=== PATIENT | male | born 1960 | race Caucasian/White ===

== ENCOUNTER 2018-06-22 06:01 | Observation (INO) | payer MEDICARE ==
[2018-06-22 06:31] VITALS: BMI 35.3
[2018-06-22] MEDS ORDERED: Propofol 10 mg/ml Inj (20 ML) ONE (07:05)
[2018-06-22] MEDS ORDERED: Midazolam 2 MG/2 ML VIAL ONE (07:06)
[2018-06-22] MEDS ORDERED: ePHEDrine 50 mg/ml Inj ONE (07:06)
[2018-06-22] MEDS ORDERED: Phenylephrine 10 mg/ml Inj ONE ×2 (07:06→11:28)
[2018-06-22] MEDS ORDERED: Sodium Chloride 0.9% 10 ML IV ONE (07:08)
--- NOTE | 2018-06-22 07:18 | CP.SDSHP ---
Same Day Surgery H & P - History Proposed Procedure: Right foot lisfranc ORIF Pre-Op Diagnosis: Right foot 2, 3, 4 metatarsal base fracture and lisfranc ligament rupture - Allergies Allergies: Allergies No Known Allergies Allergy (Verified 06/22/18 06:31) - Physical Exam Vital Signs: Vital Signs 06/22/18 06/22/18 06:37 06:43 Temperature 97.6 F Pulse Rate 90 90 Respiratory 18 Rate Blood Pressure 138/81 O2 Sat by Pulse 97 Oximetry - {Optional Preform as Required} Integument: WNL - Impression Pt. Evaluated Today:Candidate for Anesthesia & Procedure: Yes - Date & Time Date: 06/22/18 Time: 07:18 Short Stay Discharge - Short Stay Discharge Admitting Diagnosis/Reason for Visit: S93.324D Disposition: HOME/ ROUTINE Referrals: FAMILY PROVIDER,NO [Primary Care Provider] -
--- NOTE | 2018-06-22 07:25 | CP.PCM.CON ---
History of Present Illness - History of Present Illness History of Present Illness: THE PATIENT IS A 57 YEAR OLD MALE WHO SLIPPED WALKING IN THE RAIN RECENTLY AND SUSTAINED RIGHT FOOT METATARSAL FRACTURES AND TENDON INJURY. HE IS NOW SCHEDULED FOR PODIATRY SURGERY AND I HAVE BEEN ASKED TO SEE HIM PRE-OP. HIS ONLY MEDICAL PROBLEM IS SCHIZOPHRENIA WHICH IS VERY WELL CONTROLLED WITH COGENTIN. HE DENIES ANY HISTORY OF CHEST PAIN, CAD, HYPERTENSION OR SYNCOPE. Past Patient History - Past Medical History & Family History Past Medical History?: Yes - Past Social History Smoking Status: Current Some Days Smoker - CARDIAC Hx Cardiac Disorders: No - PULMONARY Hx Respiratory Disorders: No - NEUROLOGICAL Hx Neurological Disorder: No - HEENT Hx HEENT Problems: No - RENAL Hx Chronic Kidney Disease: No - ENDOCRINE/METABOLIC Hx Endocrine Disorders: No - HEMATOLOGICAL/ONCOLOGICAL Hx Blood Disorders: No Hx Blood Transfusions: No - INTEGUMENTARY Hx Dermatological Problems: No - MUSCULOSKELETAL/RHEUMATOLOGICAL Hx Musculoskeletal Disorders: No - GASTROINTESTINAL Hx Gastrointestinal Disorders: No - GENITOURINARY/GYNECOLOGICAL Hx Genitourinary Disorders: No - PSYCHIATRIC Hx Emotional Abuse: No Hx Physical Abuse: No - SURGICAL HISTORY Hx Surgeries: Yes Other/Comment: REMOVAL OF BENIGN TUMOR ON THE RIB AREA - ANESTHESIA Hx Anesthesia: Yes Hx Anesthesia Reactions: No Hx Malignant Hyperthermia: No Has any member of the family had a problem w/ anesthesia?: No Meds Allergies/Adverse Reactions: Allergies Allergy/AdvReac Type Severity Reaction Status Date / Time Penicillins Allergy RASH Verified 06/22/18 07:27 Physical Exam - Respiratory Exam Respiratory Exam: Clear to Auscultation Bilateral - Cardiovascular Exam Cardiovascular Exam: REGULAR RHYTHM, +S1, +S2 - Extremities Exam Additional comments: NO SIGNIFICANT LE EDEMA - Additional Findings Additional findings: EKG NSR OTHER PAT LABS REVIEWED Results - Vital Signs Recent Vital Signs: Last Vital Signs Temp 97.6 F 06/22/18 06:43 Pulse 90 06/22/18 06:43 Resp 18 06/22/18 06:43 BP 138/81 06/22/18 06:43 Pulse Ox 97 06/22/18 06:43 Assessment & Plan - Assessment and Plan (Free Text) Assessment: RIGHT FOOT FRACTURES AND LIGAMENT INJURY SCHIZOPHRENIA Plan: THE PATIENT IS CLEARED FOR SURGERY
[2018-06-22] MEDS ORDERED: Bupivacaine 0.5% Inj(30mL) IJ ONE (07:26)
[2018-06-22] MEDS ORDERED: Clindamycin 600mg/50ml D5W 600 MG/50 ML VIAL IVPB ONE (07:26)
[2018-06-22] MEDS ORDERED: Lidocaine 1% Inj (20ml) IJ ONE (07:26)
--- NOTE | 2018-06-22 07:28 | CP.PCM.PN ---
<QuintenCleo - Last Filed: 06/22/18 07:28> Subjective - Date & Time of Evaluation Date of Evaluation: 06/22/18 Time of Evaluation: 07:28 Objective - Vital Signs/Intake and Output Vital Signs (last 24 hours): Temp Pulse Resp BP Pulse Ox 97.6 F 90 18 138/81 97 06/22/18 06:43 06/22/18 06:43 06/22/18 06:43 06/22/18 06:43 06/22/18 06:43 - Medications Medications: Current Medications Bupivacaine HCl (Marcaine 0.5%) 10 ml IJ ONCE ONE Stop: 06/22/18 07:27 Clindamycin Phosphate 600 mg/ (Sodium Chloride) 54 mls @ 54 mls/hr IVPB ONCE ONE; Protocol Stop: 06/22/18 08:25 <Quintin Kenyon - Last Filed: 06/22/18 08:21> Subjective - Subjective Subjective: 57M with pmhx of schizophrenia seen and evaluated in [facility]. Patient sustained a trip and fall 2 weeks ago and after trying to get up he states he couldn't put any weight on his right foot. States that he felt like he broke his foot instantly. States that he does not feel pain in his toes or in his ankle but only in the middle of his foot both on the top and bottom. States that ice and elevation helps with the pain and swelling as well as motrin. States that any pressure on the foot elicits pain. Denies N/V/F/C/SOB/CP and has no other acute complaints at this time. PMHx: schizophrenia controlled with cogentin PSHx: 35 years ago angioplasty SH: 1 ppd smoker, denies alcohol use All: penicillin Objective - Vital Signs/Intake and Output Vital Signs (last 24 hours): Temp Pulse Resp BP Pulse Ox 97.6 F 90 18 138/81 97 06/22/18 06:43 06/22/18 06:43 06/22/18 06:43 06/22/18 06:43 06/22/18 06:43 - Medications Medications: Current Medications Clindamycin Phosphate (Cleocin) 600 mg in 50 mls @ 50 mls/hr IVPB ONCE ONE; Protocol Stop: 06/22/18 08:25 Sodium Chloride (Sodium Chloride 0.9%) 1,000 mls @ 0 mls/hr IV .Q0M [facility] Stop: 06/23/18 07:26 - Constitutional Appears: Well, Non-toxic, No Acute Distress - Head Exam Head Exam: ATRAUMATIC, NORMOCEPHALIC - Extremities Exam Additional comments: RLE focused Vasc: DP and PT pulses palpable; cap refill <3 seconds to all digits; temp gradient warm to warm from proximal to distal; nonpitting edema noted at the midfoot Derm: no open lesions or wounds; severe edema noted at the midfoot with mild ecchymosis and erythema associated; no streaking or cellulitis; skin temp and turgor within normal limits Ortho: pain on palpation at the midfoot circumferentially; no other gross p athology noted Neuro: gross and protective sensation intact - Neurological Exam Neurological Exam: Alert, Awake, Oriented x3 - Psychiatric Exam Psychiatric exam: Normal Affect, Normal Mood Assessment and Plan - Assessment and Plan (Free Text) Assessment: 57M with pmhx of schizophrenia controlled with cogentin with right lisfranc rupture and fracture of metatarsal bases 2-4 Plan: Pt was seen and examined in [facility] Pt NPO status was confirmed All pre-op testing and clearance in chart Pt has exhausted all conservative treatment at this time and is opting for surgical intervention Pt was explained procedure and post-operative course All pt's questions were answered to satisfaction No guarantees were made Pt understands all risks, benefits and complications of procedure Pt will follow-up with Dr. Salvador within 1 week of surgery
[2018-06-22] MEDS ORDERED: Sodium Chloride 0.9% 1,000 ML IV SCH (07:30)
[2018-06-22] MEDS ORDERED: Lactated Ringer's 1,000 ML IV ONE ×3 (07:45→15:45)
[2018-06-22] MEDS ORDERED: Ropivacaine 0.5% 30ML IV ONE (07:46)
[2018-06-22] MEDS ORDERED: Bupivacaine 0.5% Inj(30mL) ONE (07:50)
[2018-06-22] MEDS ORDERED: Lidocaine 1% Inj (20ml) ONE (07:50)
[2018-06-22] MEDS ORDERED: Mineral Oil Light Sterile 25 ml ONE (08:27)
[2018-06-22] MEDS ORDERED: Rocuronium 10 mg/ml (5 ml) ONE (08:36)
[2018-06-22] MEDS ORDERED: Esmolol 100 mg/10ml Inj IV ONE (10:36)
[2018-06-22] MEDS ORDERED: Povidone Iodine Topical 10% Sol ONE (12:35)
--- NOTE | 2018-06-22 12:57 | PCM.SURG1 ---
Surgeon's Initial Post Op Note - Surgeon's Notes Surgeon: Dr. Dav Salvador DPM Uke Operator: Dr. Didi Stanton PGY-3; Dr. Laz Castillo PGY-2; Dr. Ruiz PGY-2 Type of Anesthesia: General Endo, Block Regional Anesthesia Administered By: Dr. Jose Francisco CARD Pre-Operative Diagnosis: Right foot comminuted fracture of the 1st, 2nd, 3rd, 4th metatarsal base and cuboid Operative Findings: See dictation. M: 9 hole locking plate, 2.4 x 13 mm (x2) locking, 2.4 x 11 mm (x4) locking, 25 guage cerclage wire, 3.5 mm x 20 mm, 36mm, 38mm cannulated screw, 2-0, 3-0, 4-0 vicryl, 4-0 nylone. I: 10 cc of 0.5% marcaine plain Post-Operative Diagnosis: Same Operation Performed: Right foot open reduction and internal fixation Specimen/Specimens Removed: none Estimated Blood Loss: EBL {In ML}: 250 Blood Products Given: N/A Drains Used: No Drains Post-Op Condition: Good Date of Surgery/Procedure: 06/22/18 Time of Surgery/Procedure: 12:57
[2018-06-22] MEDS ORDERED: Oxycodone/Acetaminophen 5/325 mg Tab PO PRN (12:59)
--- NOTE | 2018-06-22 13:16 | PCM.ANESB2 ---
Popliteal Nerve Block - Popliteal Nerve Block Date of Procedure: 06/22/18 Procedure Performed: Popliteal Nerve Block Right - Procedure Popliteal Nerve Block: This procedure was explained to the patient that it is for post-operative pain management. Consent was obtained after a thorough discussion with the patient regarding the benefits and possible complications of local anesthetic block of the sciatic nerve at the popliteal level. The patient was brought to the operating room and standard monitors are applied. Time-out was held with the circulating nurse to confirm the correct surgery and the appropriate block. After applying oxygen by nasal cannula and administering IV Sedation, patient's operative leg was gently raised and supported and the groove in between the biceps femoris and vastus lateralis muscles was carefully palpated. The skin rocio roximately 8cm above the popliteal crease was then marked. The ultrasound transducer was then applied to the posterior thigh approximately 8cm above the popliteal crease in the transverse plane and the sciatic nerve before its division was visualized lateral to the popliteal artery and in between the bicep femoris and semimembranosus/semitendinosus muscles. After identification, the lateral portion of the thigh was prepped with Betadine solution three times and Lidocaine 1% was injected subcutaneously for topical anesthesia. At this point, a # 21 gauge Stimuplex insulated 4 inch needle was inserted into pre-marked area and advanced in a perpendicular direction. The needle was inserted above the ultrasound transducer in-plane towards the sciatic nerve in a [id number] direction. Needle advancement was performed carefully under direct ultrasound visualization. Nerve stimulator was used and dorsiflexion of the __right___ foot was elicited at a current of __0.4___ MA. After repeated negative aspiration, _5____cc of __ropivacaine 0.5___ % was injected and this was flowed with ___15___ cc of ___Ropivacaine 0.5___% . Under ultrasound guidance the local anesthetics were observed surrounding sciatic nerve . The needle was removed intact and sterile dressing was applied. The patient tolerated the popliteal nerve block well with stable vital signs and was subsequently prepared for the surgery.
--- NOTE | 2018-06-22 15:11 | RAD ---
Date of service: 06/22/2018 PROCEDURE: Right Foot Radiographs. HISTORY: s/p right foot surgery COMPARISON: None. FINDINGS: BONES: Satisfactory position of orthopedic hardware 1st and 2nd metacarpals and adjacent carpal bones. Solitary partially fenestrated screw in the 3rd cuneiform. JOINTS: Normal. SOFT TISSUES: Normal. OTHER FINDINGS: None. IMPRESSION: Satisfactory postoperative status. No evidence of orthopedic hardware failure.
--- NOTE | 2018-06-22 16:47 | CP.PCM.HP ---
<Maki Valenzuela - Last Filed: 06/22/18 16:34> History of Present Illness - History of Present Illness History of Present Illness: 57 y/o male patient with PMHx of Schizophrenia was seen and evaluated on the floor S/P Right foot ORIF fracture. Patient sustained a trip and fall 2 weeks ago and after trying to get up he states he couldn't put any weight on his right foot. Patient denies any pain at this time. Patient states that ice and elevation are helping with the pain and swelling. Patient currently denies fever, nausea, vomiting, shortness of breath, chest pain, urinary complaints or abdominal pain. Patient dressing clean/dry intact PMHx: Schizophrenia controlled with Cogentin PSHx: 35 years ago angioplasty SH: 1 ppd smoker, denies alcohol use All: penicillin PMD: none Anodic Treater: Dr. Salvador Present on Admission - Present on Admission Any Indicators Present on Admission: No Review of Systems - Constitutional Constitutional: absent: Chills, Fever, Weakness - EENT Eyes: absent: Blurred Vision, Change in Vision - Cardiovascular Cardiovascular: absent: Chest Pain, Chest Pain with Activity, Dyspnea on Exertion - Respiratory Respiratory: absent: Cough, Dyspnea on Exertion - Gastrointestinal Gastrointestinal: absent: Abdominal Pain, Diarrhea, Nausea, Vomiting - Neurological Neurological: absent: Numbness, Tingling Past Patient History - Past Medical History & Family History Past Medical History?: Yes - Past Social History Smoking Status: Current Some Days Smoker - CARDIAC Hx Cardiac Disorders: No - PULMONARY Hx Respiratory Disorders: No - NEUROLOGICAL Hx Neurological Disorder: No - HEENT Hx HEENT Problems: No - RENAL Hx Chronic Kidney Disease: No - ENDOCRINE/METABOLIC Hx Endocrine Disorders: No - HEMATOLOGICAL/ONCOLOGICAL Hx Blood Disorders: No Hx Blood Transfusions: No - INTEGUMENTARY Hx Dermatological Problems: No - MUSCULOSKELETAL/RHEUMATOLOGICAL Hx Musculoskeletal Disorders: No - GASTROINTESTINAL Hx Gastrointestinal Disorders: No - GENITOURINARY/GYNECOLOGICAL Hx Genitourinary Disorders: No - PSYCHIATRIC Hx Emotional Abuse: No Hx Physical Abuse: No - SURGICAL HISTORY Hx Surgeries: Yes Other/Comment: REMOVAL OF BENIGN TUMOR ON THE RIB AREA - ANESTHESIA Hx Anesthesia: Yes Hx Anesthesia Reactions: No Hx Malignant Hyperthermia: No Has any member of the family had a problem w/ anesthesia?: No Meds Allergies/Adverse Reactions: Allergies Allergy/AdvReac Type Severity Reaction Status Date / Time Penicillins Allergy RASH Verified 06/22/18 07:27 Physical Exam - Constitutional Appears: Well, Non-toxic, No Acute Distress - Head Exam Head Exam: ATRAUMATIC, NORMOCEPHALIC - Eye Exam Eye Exam: Normal appearance, PERRL Pupil Exam: NORMAL ACCOMODATION, PERRL - ENT Exam ENT Exam: Mucous Membranes Moist, Normal Exam - Respiratory Exam Respiratory Exam: Clear to Auscultation Bilateral, NORMAL BREATHING PATTERN. absent: Rales, Wheezes, Stridor - Cardiovascular Exam Cardiovascular Exam: REGULAR RHYTHM, +S1, +S2 - GI/Abdominal Exam GI & Abdominal Exam: Normal Bowel Sounds, Soft. absent: Distended, Firm, Guarding - Extremities Exam Additional comments: Cast to the RLE - Neurological Exam Neurological exam: Alert, Oriented x3 - Psychiatric Exam Psychiatric exam: Normal Affect, Normal Mood Results - Vital Signs Recent Vital Signs: Last Vital Signs Temp 98.7 F 06/22/18 16:00 Pulse 72 06/22/18 16:00 Resp 18 06/22/18 16:00 BP 110/74 06/22/18 16:00 Pulse Ox 99 06/22/18 16:00 Assessment & Plan - Assessment and Plan (Free Text) Assessment: Pt is a 57 y/o male with PMH of schizophrenia S/P Right foot ORIF due to fracture. Post op day #0 Plan: Right foot ORIF Post Op day#0 Pt Awake, and alert Pt recovering well from surgery Vitals BP is 101/65, other WNL f/u CBC/BMP f/u OT/PT Tylenol PRN for pain Oxycodone PRN for pain Pain management consult- Dr. Sebastian, recommendations appreciated Spirometry Schizophrenia - continue home medications - Halodol 10 mg PO HS - Benztropine 2 mg PO HS DVT Prophylaxis Lovenox 40 mg SC DAILY Diet Heart Healthy Diet - Date & Time Date: 06/22/18 Time: 16:58 <Raji Alexander D - Last Filed: 06/23/18 09:46> Results - Vital Signs Recent Vital Signs: Last Vital Signs Temp 97.4 F L 06/23/18 08:12 Pulse 77 06/23/18 08:12 Resp 20 06/23/18 08:12 BP 111/74 06/23/18 08:12 Pulse Ox 93 L 06/23/18 08:12 - Labs Result Diagrams: 06/23/18 06:05 06/23/18 06:05 Labs: Laboratory Results - last 24 hr 06/23/18 06/23/18 06:05 06:05 WBC 8.4 RBC 3.95 L Hgb 12.4 D Hct 36.6 MCV 92.6 MCH 31.5 H MCHC 34.0 RDW 13.3 Plt Count 228 Sodium 138 Potassium 3.8 Chloride 106 Carbon Dioxide 27 Anion Gap 9 L BUN 13 Creatinine 0.9 Est GFR ( Amer) > 60 Est GFR (Non-Af Amer) > 60 Random Glucose 101 Calcium 8.6 Attending/Attestation - Attestation I have personally seen and examined this patient.: Yes I have fully participated in the care of the patient.: Yes I have reviewed all pertinent clinical information: Yes Notes (Text): 06/23/18 09:46 Patient seen and examined with resident. Case discussed and agreed with assessment and plan of management.
[2018-06-22] MEDS ORDERED: Haloperidol Lactate 2 mg/ml Liquid PO SCH (18:30)
[2018-06-22] MEDS: Clindamycin 600mg/50ml D5W 600 MG/50 ML VIAL IVPB SCH (19:11)
[2018-06-22] MEDS ORDERED: Influenza Vaccine (5 YR UP)/PF 60 MCG/0.5 ML SYR IM ONE (20:00)
[2018-06-22] MEDS ORDERED: Pneumococcal 23-Valent Vaccine IM ONE (20:00)
[2018-06-22] MEDS: Haloperidol Lactate 2 mg/ml Liquid PO SCH (21:03)
--- NOTE | 2018-06-22 22:09 | CP.PCM.PN ---
Subjective - Date & Time of Evaluation Date of Evaluation: 06/22/18 Time of Evaluation: 22:22 - Subjective Subjective: 57 yo smoker with hx of schizophrenia admitted for fx R foot Objective - Vital Signs/Intake and Output Vital Signs (last 24 hours): Temp Pulse Resp BP Pulse Ox 98 F 86 20 123/86 97 06/22/18 16:52 06/22/18 16:52 06/22/18 16:52 06/22/18 16:52 06/22/18 16:52 Intake and Output: 06/22/18 06/23/18 18:59 06:59 Intake Total 2250 Balance 2250 - Medications Medications: Current Medications Acetaminophen (Tylenol 325mg Tab) 650 mg PO Q6 PRN PRN Reason: Pain, Mild (1-3) Benztropine Mesylate (Cogentin) 2 mg PO HS [facility] Last Admin: 06/22/18 21:03 Dose: 2 mg Enoxaparin Sodium (Lovenox) 40 mg SC DAILY [facility]; Protocol Haloperidol Lactate (Haldol) 5 mg PO BID@0900,2100 [facility] Last Admin: 06/22/18 21:03 Dose: 5 mg Sodium Chloride (Sodium Chloride 0.9%) 1,000 mls @ 0 mls/hr IV .Q0M [facility] Stop: 06/23/18 07:26 Clindamycin Phosphate (Cleocin) 600 mg in 50 mls @ 50 mls/hr IVPB Q8 [facility]; Protocol Last Admin: 06/22/18 19:11 Dose: 50 mls/hr Oxycodone/Acetaminophen (Percocet 5/325 Mg Tab) 1 tab PO Q4 PRN PRN Reason: Pain, moderate (4-7) Stop: 06/25/18 13:00 Oxycodone/Acetaminophen (Percocet 5/325 Mg Tab) 2 tab PO Q4 PRN PRN Reason: Pain, severe (8-10) Stop: 06/25/18 13:00 - Respiratory Exam Respiratory Exam: NORMAL BREATHING PATTERN - Cardiovascular Exam Cardiovascular Exam: REGULAR RHYTHM - GI/Abdominal Exam GI & Abdominal Exam: Normal Bowel Sounds Assessment and Plan - Assessment and Plan (Free Text) Assessment: Fx R foot S/P ORIF Local pop;iteal nerve block Lovenox 40 mg Schizophrenia Cont Haldol and cogentin Smoker ?? CAD ?? Angioplasty
[2018-06-23] MEDS: Clindamycin 600mg/50ml D5W 600 MG/50 ML VIAL IVPB SCH ×3 (00:29→17:24)
[2018-06-23] MEDS: Oxycodone/Acetaminophen 5/325 mg Tab PO PRN ×3 (01:28→13:34)
[2018-06-23 04:12] VITALS: RESP 20
[2018-06-23 06:33] LABS: HEMOGLOBIN 12.4 g/dL (12.0-18.0); MEAN CELL VOLUME 92.6 fl (80.0-94.0); MEAN CORPUSCULAR HEMOGLOBIN 31.5 pg (27.0-31.0); RBC 3.95 Mil/uL (4.40-5.90); RED CELL DISTRIBUTION WIDTH 13.3 % (11.5-14.5); WHITE BLOOD COUNT 8.4 K/uL (4.8-10.8)
[2018-06-23 06:45] LABS: BLOOD UREA NITROGEN 13 mg/dl (9-20); CALCIUM 8.6 mg/dL (8.4-10.2); GFR NON-AFRICAN AMERICAN > 60
[2018-06-23] MEDS ORDERED: Enoxaparin 40 mg Syringe SC SCH (09:00)
[2018-06-23] MEDS: Haloperidol Lactate 2 mg/ml Liquid PO SCH (10:05)
--- NOTE | 2018-06-23 10:09 | CP.PCM.CON ---
History of Present Illness - History of Present Illness History of Present Illness: 57 yo man s/p right foot ORIF for fracture, POD #1. Patient states that popliteal block wore off about 2am, and the pain has been mostly in the top of the foot. He's opioid naive and states that he doesn't want more than the current regimen due to fear of addiction. He states that Percocet is helping moderately, without side effects. Past Patient History - Past Medical History & Family History Past Medical History?: Yes - Past Social History Smoking Status: Current Some Days Smoker - CARDIAC Hx Cardiac Disorders: No - PULMONARY Hx Respiratory Disorders: No - NEUROLOGICAL Hx Neurological Disorder: No - HEENT Hx HEENT Problems: No - RENAL Hx Chronic Kidney Disease: No - ENDOCRINE/METABOLIC Hx Endocrine Disorders: No - HEMATOLOGICAL/ONCOLOGICAL Hx Blood Disorders: No Hx Blood Transfusions: No - INTEGUMENTARY Hx Dermatological Problems: No - MUSCULOSKELETAL/RHEUMATOLOGICAL Hx Musculoskeletal Disorders: No - GASTROINTESTINAL Hx Gastrointestinal Disorders: No - GENITOURINARY/GYNECOLOGICAL Hx Genitourinary Disorders: No - PSYCHIATRIC Hx Emotional Abuse: No Hx Physical Abuse: No - SURGICAL HISTORY Hx Surgeries: Yes Other/Comment: REMOVAL OF BENIGN TUMOR ON THE RIB AREA - ANESTHESIA Hx Anesthesia: Yes Hx Anesthesia Reactions: No Hx Malignant Hyperthermia: No Has any member of the family had a problem w/ anesthesia?: No Meds Allergies/Adverse Reactions: Allergies Allergy/AdvReac Type Severity Reaction Status Date / Time Penicillins Allergy RASH Verified 06/22/18 07:27 - Medications Medications: Current Medications Acetaminophen (Tylenol 325mg Tab) 650 mg PO Q6 PRN PRN Reason: Pain, Mild (1-3) Benztropine Mesylate (Cogentin) 2 mg PO HS [facility] Last Admin: 06/22/18 21:03 Dose: 2 mg Enoxaparin Sodium (Lovenox) 40 mg SC DAILY [facility]; Protocol Haloperidol Lactate (Haldol) 5 mg PO BID@0900,2100 [facility] Last Admin: 06/22/18 21:03 Dose: 5 mg Clindamycin Phosphate (Cleocin) 600 mg in 50 mls @ 50 mls/hr IVPB Q8 [facility]; Protocol Last Admin: 06/23/18 00:29 Dose: 50 mls/hr Oxycodone/Acetaminophen (Percocet 5/325 Mg Tab) 1 tab PO Q4 PRN PRN Reason: Pain, moderate (4-7) Stop: 06/25/18 13:00 Last Admin: 06/23/18 06:33 Dose: 1 tab Oxycodone/Acetaminophen (Percocet 5/325 Mg Tab) 2 tab PO Q4 PRN PRN Reason: Pain, severe (8-10) Stop: 06/25/18 13:00 Physical Exam - Extremities Exam Additional comments: Right lower leg in cast. Results - Vital Signs Recent Vital Signs: Last Vital Signs Temp 97.4 F L 06/23/18 08:12 Pulse 77 06/23/18 08:12 Resp 20 06/23/18 08:12 BP 111/74 06/23/18 08:12 Pulse Ox 93 L 06/23/18 08:12 - Labs Result Diagrams: 06/23/18 06:05 06/23/18 06:05 Labs: Laboratory Results - last 24 hr 06/23/18 06/23/18 06:05 06:05 WBC 8.4 RBC 3.95 L Hgb 12.4 D Hct 36.6 MCV 92.6 MCH 31.5 H MCHC 34.0 RDW 13.3 Plt Count 228 Sodium 138 Potassium 3.8 Chloride 106 Carbon Dioxide 27 Anion Gap 9 L BUN 13 Creatinine 0.9 Est GFR ( Amer) > 60 Est GFR (Non-Af Amer) > 60 Random Glucose 101 Calcium 8.6 Assessment & Plan - Assessment and Plan (Free Text) Assessment: 57 yo man s/p right foot ORIF. Moderately comfortable on Percocet. - continue Percocet, 1 tab q4h PRN, or 2 tabs q6h PRN - would add Neurontin 300mg q8h - please re-consult if necessary
--- NOTE | 2018-06-23 11:35 | PCM.OP ---
Operative Report - Operative Report Date of Surgery/Procedure: 06/22/18 Time of Surgery/Procedure: 08:00 Surgeon: Dr. Salvador [facility] Technician: Dr. Dax Stanton, Dr. Castillo, Dr. Love Anesthesia/Sedation: General LMA and Regional Popliteal and Saphenous Block Pre-Operative Diagnosis: RIGHT foot comminuted fracture of Tarso-metatarsal joint involving fractures to 1st, 2nd, 3rd, 4th metatarsal bases and Cuboid Post-Operative Diagnosis: same Indication for Surgery: Indications: The patient is a 57 year-old male with the above diagnoses. The patient has exhausted conservative treatment and now requires surgical intervention. The patient signed the consent after careful explanation of risks, benefits, complication and alternatives for surgical procedure. No guarantees were given nor implied. 900 mg of Clindamycin IV were given to the pt hour prior to the procedure. NPO status was confirmed prior to taking patient to the OR. Operative Findings: Preparation: The patient received regional popliteal block to Right lower extremity by the anesthesiologist prior to taking patient o OR. The patient was brought to the operating room and placed on the operating room table in supine position. A well-padded pneumatic thigh tourniquet was placed to the patient's RIGHT thigh. Once general anesthesia was achieved. The RIGHT lower extremity was then prepped and draped in usual sterile manner. Esmarch was utilized to exsanguinate the patient's RIGHT lower extremity. Pneumatic thigh tourniquet was then inflated to 350 mmHg and procedure began. Procedure/Operation Description: Name of Procedure: 1) RIGHT foot 2nd Metatarso-cuneiform Joint Fusion using internal fixation with application of autologous bone graft 2) RIGHT foot 3rd Metatarso-cuneiform Joint Fusion using internal fixation 3) RIGHT foot Lis Franc joint Open Reduction and Internal Fixation 4) RIGHT foot Excision of osseous fragment from Cuboid PROCEDURE #1: RIGHT foot 2nd Metatarso-cuneiform Joint Fusion using internal fixation with application of autologous bone graft Xray of contralateral foot was taken prior to surgery to compare anatomical landmarks. Attention was directed to the dorsal aspect of RIGHT foot 2nd metatarsal. Utilizing #15 blade, approximately 6 cm curvilinear longitudinal incision was made overlying the 2nd metatarsal involving the MTCJ. The incision was deepened through the subcutaneous tissues using sharp and blunt dissection. Care was taken to identify and retract all vital neurovascular structures. All bleeders were cauterized and ligated as necessary. Next Utilizing #15 blade, linear longitudinal incision was made along the shaft of 2nd metatarsal extending proximally up to 2nd MTCJ joint. A comminuted fracture was noted at the proximal aspect of 2nd metatarsal base. Upon careful examination, it was noted that the lateral aspect of 2nd metatarsal base was fractured into multiple parts with one larger piece that can be fixated. Next, utilizing a small bone curette, the articular surface of the 2nd metatarsal base and middle cuneiform was gently denuded until healthy cancellous surface was noted. Utilizing a small bone clamp, the 2nd metatarsal shaft was grabbed and pulled out to original length. Next, a 9 hole LC-DCP plate from modular set was applied to dorsal aspect of 2nd MTCJ. The alignment of the plate along the shaft of 2nd metatarsal was confirmed with intra-operative Xray. Next, following standard AO principles and technique, two 2.4 x 13 mm locking screws were inserted into most proximal holes of the plate on top of the middle cuneiform. Next, two 2.4 x 13 mm and one 2.4 x 11mm screws were inserted into 2nd metatarsal shaft through the most distal four holes. Proximal three holes of the plate were left for accommodation of Lis Franc screw. Next, the lateral bone fragment of 2nd metatarsal base was held in position with a bone clamp. While in reduced position, 0.062 inch K-beverly was used to drill a small hole through the fragment piece and 2nd metatarsal from lateral to medial direction. Next, a 25-gauge Stainless steel monofilament was passed through the hole and was tightened at the dorsal aspect to fixate the fracture fragment. Excellent compression and alignment of the 2nd metatarsal base fracture was visually confirmed. The surgical site was irrigated with copious amount of normal sterile saline. Excellent reduction and alignment was noted under direct visualization and intra-operative Xray. Autologous bone graft harvested from PROCEDURE#4 was applied to this joint. PROCEDURE #2: RIGHT foot 3rd Metatarso-cuneiform Joint Fusion using internal fixation Attention was directed to the dorsal aspect of RIGHT foot 3rd metatarsal. The original incision made for procedure #1 was deepened through the subcutaneous ti ssues using sharp and blunt dissection. Care was taken to identify and retract all vital neurovascular structures. All bleeders were cauterized and ligated as necessary. Next Utilizing #15 blade, linear longitudinal incision was made along the shaft of 3rd metatarsal extending proximally up to 3rd MTCJ joint. A comminuted fracture was noted at the proximal aspect of 3rd metatarsal base. Upon careful examination, it was noted that the base of 3rd metatarsal was completely dislocated off of lateral cuneiform laterally. Next, utilizing a sagittal saw the articular surface of 3rd metatarsal base and lateral cuneiform was resected off. The healthy cancellous surface was noted from both sides. Utilizing a small bone clamp, the 2nd metatarsal shaft was grabbed and pulled out to original length and was put back into original position and in alignment with the lateral cuneiform. Next, following standard AO principles and technique, one 3.5 x 38 mm partially threaded cancellous screw was inserted into across the MTCJ from distal dorsal to proximal plantar direction. The surgical site was irrigated with copious amount of normal sterile saline. Excellent reduction and alignment was noted under direct visualization and intra-operative Xray. Autologous bone graft harvested from PROCEDURE#4 was applied to this joint. PROCEDURE #3: RIGHT foot Lis Franc joint Open Reduction and Internal Fixation Next, attention was directed to the medial aspect of RIGHT foot 1st MTCJ. Utilizing intraoperative fluoroscopy, position and orientation of inter- cuneiform screw was determined. Next, a small 1cm linear incision was made to medial aspect of medial cuneiform. Next, following standard AO principles and technique, one 3.5 x 42 mm partially threaded cancellous screw was inserted into across the cuneiforms from medial to lateral direction across medial, middle and lateral cuneiforms. The surgical site was irrigated with copious amount of normal sterile saline. Excellent reduction and alignment was noted under direct visualization and intra-operative Xray. Next, attention was directed to the dorsal aspect of RIGHT foot 1st MTCJ. Utilizing intraoperative fluoroscopy, position and orientation of 1st MTCJ screw was determined. Next, a small 1cm linear incision was made to dorsal aspect of 1st metatarsal. Next, following standard AO principles and technique, one 3.5 x 40 mm partially threaded cancellous screw was inserted into across the 1st MTCJ from distal dorsal to proximal plantar direction. The surgical site was irrigated with copious amount of normal sterile saline. Excellent reduction and alignment of 1st MTCJ was noted under direct visualization and intra-operative Xray. Next, attention was directed to the medial aspect of RIGHT foot Lis-Franc joint. Utilizing intraoperative fluoroscopy, and through the original incision made in PROCEDURE#1, position and orientation of Lis-Franc screw was determined. Next, a small 1cm linear incision was made to medial aspect of medial cuneiform. Next, following standard AO principles and technique, one 3.5 x 36 mm partially threaded cancellous screw was inserted into across the Lis-Franc joint from medial proximal to lateral distal direction across the medial cuneiform and 2nd metatarsal base. The surgical site was irrigated with copious amount of normal sterile saline. Excellent reduction and alignment was noted under direct visualization through incision and intra-operative Xray. All screw placements in procedure #3 were performed under intra-operative Fluoroscopy. PROCEDURE #4: RIGHT foot Excision of osseous fragment from Cuboid Attention was directed to the dorso-lateral aspect of RIGHT foot Cuboid. Utilizing #15 blade, approximately 5 cm curvilinear longitudinal incision was made overlying the Cuboid bone. The incision was deepened through the subcutaneous tissues using sharp and blunt dissection. Care was taken to identify and retract all vital neurovascular structures. All bleeders were cauterized and ligated as necessary. A piece of fracture was noted at the dorsal aspect of Cuboid measuring approximately 2cm x 1.5cm. Upon careful examination, it was noted that the osseous fragment is extra-articular and does not involve and tendon course. Next, utilizing a rongeur, the osseous fragment was excised from the Cuboid bone and was passed from the operative field. This osseous bone fragment was then crushed with a rongeur to be used as autologous bone graft for 2nd and 3rd metatarsal base. For all incisions made to right foot, Capsular and periosteal structures were reapproximated with #2-0 , 3-0 vicryl. Subcutansous tissue was reapproximated with #4-0 vicryl. Skin was reapproximated with #4-0 Nylon in horizontal mattress suture technique. . RIGHT foot was dressed with betadine soaked adaptic, 4x 4 gauze, latrice and below knee cast. The attending was present during the case. Estimated Blood Loss: 250mL Complications: none Discharge & Condition: Postoperative Condition: The patient tolerated the anesthesia and procedure well and was escorted to the recovery room with vital signs stable and neurovascular status intact to the RIGHT lower extremity. This patient will be non-weight bearing to RIGHT foot and follow up with Dr. Salvador.
--- NOTE | 2018-06-23 11:55 | CP.PCM.PN ---
Subjective - Date & Time of Evaluation Date of Evaluation: 06/23/18 Time of Evaluation: 09:45 - Subjective Subjective: NO CHEST PAIN OR SOB PAIN AT RIGHT FOOT SURGICAL SITE Objective - Vital Signs/Intake and Output Vital Signs (last 24 hours): Temp Pulse Resp BP Pulse Ox 97.4 F L 77 20 111/74 93 L 06/23/18 08:12 06/23/18 08:12 06/23/18 08:12 06/23/18 08:12 06/23/18 08:12 - Medications Medications: Current Medications Acetaminophen (Tylenol 325mg Tab) 650 mg PO Q6 PRN PRN Reason: Pain, Mild (1-3) Benztropine Mesylate (Cogentin) 2 mg PO HS [facility] Last Admin: 06/22/18 21:03 Dose: 2 mg Enoxaparin Sodium (Lovenox) 40 mg SC DAILY [facility]; Protocol Last Admin: 06/23/18 10:04 Dose: 40 mg Gabapentin (Neurontin) 300 mg PO TID [facility] Haloperidol Lactate (Haldol) 5 mg PO BID@0900,2100 [facility] Last Admin: 06/22/18 21:03 Dose: 5 mg Clindamycin Phosphate (Cleocin) 600 mg in 50 mls @ 50 mls/hr IVPB Q8 [facility]; Protocol Last Admin: 06/23/18 10:09 Dose: 50 mls/hr Oxycodone/Acetaminophen (Percocet 5/325 Mg Tab) 1 tab PO Q4 PRN PRN Reason: Pain, moderate (4-7) Stop: 06/25/18 13:00 Last Admin: 06/23/18 06:33 Dose: 1 tab Oxycodone/Acetaminophen (Percocet 5/325 Mg Tab) 2 tab PO Q4 PRN PRN Reason: Pain, severe (8-10) Stop: 06/25/18 13:00 - Labs Labs: 06/23/18 06:05 06/23/18 06:05 - Respiratory Exam Respiratory Exam: Clear to Ausculation Bilateral - Cardiovascular Exam Cardiovascular Exam: REGULAR RHYTHM, +S1, +S2 - Extremities Exam Additional comments: RIGHT FOOT WITH SURGICAL DRESSINGS - Additional Findings Additional findings: SURGICAL NOTE REVIEWED Assessment and Plan - Assessment and Plan (Free Text) Assessment: RIGHT FOOT SURGERY FOR FRACTURES Plan: CONTINUE PRESENT TREATMENT
--- NOTE | 2018-06-23 12:09 | CP.PCM.PN ---
Subjective - Date & Time of Evaluation Date of Evaluation: 06/23/18 Time of Evaluation: 11:59 - Subjective Subjective: Podiatry progress note for Dr. Salvador 57M see and evaluated at bedside. Resting comfortably although admits to pain in his right LE. State the pain is mostly located in his right foot. Denies any associated constitutional symptoms. States he is able to eat, drink, and void freely and that pain medication is helping with the pain. States he was seen by PT and pain management. Has no other acute complaints at this time. Objective - Vital Signs/Intake and Output Vital Signs (last 24 hours): Temp Pulse Resp BP Pulse Ox 97.4 F L 77 20 111/74 93 L 06/23/18 08:12 06/23/18 08:12 06/23/18 08:12 06/23/18 08:12 06/23/18 08:12 - Medications Medications: Current Medications Acetaminophen (Tylenol 325mg Tab) 650 mg PO Q6 PRN PRN Reason: Pain, Mild (1-3) Benztropine Mesylate (Cogentin) 2 mg PO HS [facility] Last Admin: 06/22/18 21:03 Dose: 2 mg Enoxaparin Sodium (Lovenox) 40 mg SC DAILY [facility]; Protocol Last Admin: 06/23/18 10:04 Dose: 40 mg Gabapentin (Neurontin) 300 mg PO TID [facility] Haloperidol Lactate (Haldol) 5 mg PO BID@0900,2100 [facility] Last Admin: 06/22/18 21:03 Dose: 5 mg Clindamycin Phosphate (Cleocin) 600 mg in 50 mls @ 50 mls/hr IVPB Q8 [facility]; Protocol Last Admin: 06/23/18 10:09 Dose: 50 mls/hr Oxycodone/Acetaminophen (Percocet 5/325 Mg Tab) 1 tab PO Q4 PRN PRN Reason: Pain, moderate (4-7) Stop: 06/25/18 13:00 Last Admin: 06/23/18 06:33 Dose: 1 tab Oxycodone/Acetaminophen (Percocet 5/325 Mg Tab) 2 tab PO Q4 PRN PRN Reason: Pain, severe (8-10) Stop: 06/25/18 13:00 - Labs Labs: 06/23/18 06:05 06/23/18 06:05 - Constitutional Appears: Non-toxic, No Acute Distress - Head Exam Head Exam: ATRAUMATIC, NORMOCEPHALIC - Extremities Exam Additional comments: Right LE dressing clean/dry/intact No strikethrough Can move toes N/V status intact - Neurological Exam Neurological Exam: Alert, Awake, Oriented x3 - Psychiatric Exam Psychiatric exam: Normal Affect, Normal Mood Assessment and Plan - Assessment and Plan (Free Text) Assessment: 57M POD 1 right foot lisfranc ORIF Plan: Patient seen and evaluated Discussed in detail with Dr. Salvador X-rays reviewed with patient and discussed satisfactory post op imaging Dressing and bivalved cast left intact, appears clean and dry Pain management consulted - recs appreciated PT eval - recommend senior care rehab Continue medications per medicine - cleocin 600mg IV Q8 Stable for discharge to subacute rehab from podiatry standpoint, will continue with outpatient management with Dr. Salvador Will continue to follow while in house
--- NOTE | 2018-06-23 13:19 | CP.PCM.PN ---
<Maki Valenzuela - Last Filed: 06/23/18 12:48> Subjective - Date & Time of Evaluation Date of Evaluation: 06/23/18 Time of Evaluation: 12:48 - Subjective Subjective: 57 y/o male patient with PMHx of Schizophrenia was seen and evaluated on the floor S/P Right foot ORIF fracture. Patient sustained a trip and fall 2 weeks ago and after trying to get up he states he couldn't put any weight on his right foot. Patient is complaining of moderate pain. Patient states that ice and elevation are helping with the pain and swelling. Patient currently denies fever, nausea, vomiting, shortness of breath, chest pain, urinary complaints or abdominal pain. Patient dressing clean/dry intact. Patient able to wiggle digits Objective - Vital Signs/Intake and Output Vital Signs (last 24 hours): Temp Pulse Resp BP Pulse Ox 97.4 F L 77 20 111/74 93 L 06/23/18 08:12 06/23/18 08:12 06/23/18 08:12 06/23/18 08:12 06/23/18 08:12 - Medications Medications: Current Medications Acetaminophen (Tylenol 325mg Tab) 650 mg PO Q6 PRN PRN Reason: Pain, Mild (1-3) Benztropine Mesylate (Cogentin) 2 mg PO HS [facility] Last Admin: 06/22/18 21:03 Dose: 2 mg Enoxaparin Sodium (Lovenox) 40 mg SC DAILY [facility]; Protocol Last Admin: 06/23/18 10:04 Dose: 40 mg Gabapentin (Neurontin) 300 mg PO TID [facility] Last Admin: 06/23/18 12:20 Dose: 300 mg Haloperidol Lactate (Haldol) 5 mg PO BID@0900,2100 [facility] Last Admin: 06/23/18 10:05 Dose: 5 mg Clindamycin Phosphate (Cleocin) 600 mg in 50 mls @ 50 mls/hr IVPB Q8 [facility]; Protocol Last Admin: 06/23/18 10:09 Dose: 50 mls/hr Oxycodone/Acetaminophen (Percocet 5/325 Mg Tab) 1 tab PO Q4 PRN PRN Reason: Pain, moderate (4-7) Stop: 06/25/18 13:00 Last Admin: 06/23/18 06:33 Dose: 1 tab Oxycodone/Acetaminophen (Percocet 5/325 Mg Tab) 2 tab PO Q4 PRN PRN Reason: Pain, severe (8-10) Stop: 06/25/18 13:00 - Labs Labs: 06/23/18 06:05 06/23/18 06:05 - Constitutional Appears: Well, Non-toxic, No Acute Distress - Head Exam Head Exam: ATRAUMATIC, NORMOCEPHALIC - Eye Exam Eye Exam: Normal appearance, PERRL - ENT Exam ENT Exam: Mucous Membranes Moist - Neck Exam Neck Exam: Full ROM - Respiratory Exam Respiratory Exam: Clear to Ausculation Bilateral, NORMAL BREATHING PATTERN. absent: Rales, Rhonchi, Wheezes - Cardiovascular Exam Cardiovascular Exam: REGULAR RHYTHM, +S1 - Extremities Exam Additional comments: Cast to right leg - Neurological Exam Neurological Exam: Alert, Awake, Oriented x3 - Psychiatric Exam Psychiatric exam: Normal Affect, Normal Mood - Skin Skin Exam: Normal Color Assessment and Plan - Assessment and Plan (Free Text) Assessment: Pt is a 57 y/o male with PMH of schizophrenia S/P Right foot ORIF due to fracture. Post op day #1 Plan: Plan: Right foot ORIF Post Op day#1 Pt Awake, and alert Pt recovering well from surgery Vitals WNL CBC/BMP: WNL OT/PT: Physical therapy recommending ISABELLA Tylenol PRN for pain Oxycodone PRN for pain Cont Clinda 600 mg IV Q8 Pain management consult- Dr. Sebastian, recommendations appreciated Spirometry Schizophrenia - continue home medications - Halodol 10 mg PO HS - Benztropine 2 mg PO HS DVT Prophylaxis Lovenox 40 mg SC DAILY Diet Heart Healthy Diet <Raji Alexander D - Last Filed: 06/24/18 12:08> Objective - Vital Signs/Intake and Output Vital Signs (last 24 hours): Temp Pulse Resp BP Pulse Ox 98.2 F 82 20 117/80 94 L 06/23/18 16:26 06/23/18 16:26 06/23/18 16:26 06/23/18 16:26 06/23/18 16:26 - Labs Labs: 06/23/18 06:05 06/23/18 06:05 Attending/Attestation - Attestation I have personally seen and examined this patient.: Yes I have fully participated in the care of the patient.: Yes I have reviewed all pertinent clinical information, including history, physical exam and plan: Yes Notes (Text): 06/24/18 12:07 Patient seen and examined with resident. Case discussed and agreed with assessment and plan.
--- NOTE | 2018-06-23 15:03 | CP.PCM.DIS ---
<Maki Valenzuela - Last Filed: 06/23/18 15:01> Provider - Provider Date of Admission: 06/22/18 14:13 Attending physician: Raji Alexander MD Primary care physician: NO FAMILY PROVIDER Consults: 06/22/18 14:20 Physician Consult Routine Comment: Consulting Provider: Shannan Sebastian Consulting Physician: Shannan Sebastian Reason for Consult: pain managment s/p right foot lisfranc ORIF Time Spent in preparation of Discharge (in minutes): 30 Diagnosis - Discharge Diagnosis (1) S/P foot surgery, right Status: Acute Hospital Course - Lab Results Lab Results: Most Recent Lab Values WBC 8.4 K/uL (4.8-10.8) 06/23/18 06:05 RBC 3.95 Mil/uL (4.40-5.90) L 06/23/18 06:05 Hgb 12.4 g/dL (12.0-18.0) D 06/23/18 06:05 Hct 36.6 % (35.0-51.0) 06/23/18 06:05 MCV 92.6 fl (80.0-94.0) 06/23/18 06:05 MCH 31.5 pg (27.0-31.0) H 06/23/18 06:05 MCHC 34.0 g/dL (33.0-37.0) 06/23/18 06:05 RDW 13.3 % (11.5-14.5) 06/23/18 06:05 Plt Count 228 K/uL (130-400) 06/23/18 06:05 Sodium 138 mmol/l (132-148) 06/23/18 06:05 Potassium 3.8 MMOL/L (3.6-5.0) 06/23/18 06:05 Chloride 106 mmol/L (98-107) 06/23/18 06:05 Carbon Dioxide 27 mmol/L (22-30) 06/23/18 06:05 Anion Gap 9 (10-20) L 06/23/18 06:05 BUN 13 mg/dl (9-20) 06/23/18 06:05 Creatinine 0.9 mg/dl (0.8-1.5) 06/23/18 06:05 Est GFR ( Amer) > 60 06/23/18 06:05 Est GFR (Non-Af Amer) > 60 06/23/18 06:05 Random Glucose 101 mg/dL (75-110) 06/23/18 06:05 Calcium 8.6 mg/dL (8.4-10.2) 06/23/18 06:05 - Hospital Course Hospital Course: 57 y/o male patient with PMHx of Schizophrenia was seen and evaluated on the floor S/P Right foot ORIF fracture. Patient sustained a trip and fall 2 weeks ago and after trying to get up he states he couldn't put any weight on his right foot. Patient is complaining of moderate pain. Patient states that ice and elevation are helping with the pain and swelling. Patient currently denies fever, nausea, vomiting, shortness of breath, chest pain, urinary complaints or abdominal pain. Patient dressing clean/dry intact. Patient able to wiggle digits Right foot ORIF Post Op day#1 Pt Awake, and alert Pt recovering well from surgery Vitals WNL CBC/BMP: WNL OT/PT: Physical therapy recommending ISABELLA Tylenol PRN for pain Oxycodone PRN for pain Cont Clinda 600 mg IV Q8 Pain management consult- Dr. Sebastian, recommendations appreciated Spirometry Schizophrenia - continue home medications - Halodol 10 mg PO HS - Benztropine 2 mg PO HS DVT Prophylaxis Lovenox 40 mg SC DAILY Diet Heart Healthy Diet - Date & Time of H&P Date of H&P: 06/23/18 Time of H&P: 15:02 Discharge Exam - Head Exam Head Exam: ATRAUMATIC, NORMOCEPHALIC - Eye Exam Pupil Exam: NORMAL ACCOMODATION, PERRL - ENT Exam ENT Exam: Mucous Membranes Moist - Respiratory Exam Respiratory Exam: Clear to PA & Lateral, NORMAL BREATHING PATTERN - Cardiovascular Exam Cardiovascular Exam: REGULAR RHYTHM, +S1 - GI/Abdominal Exam GI & Abdominal Exam: Normal Bowel Sounds, Soft. absent: Distended, Firm, Guarding - Back Exam Back exam: absent: CVA tenderness (L), CVA tenderness (R) - Neurological Exam Neurological exam: Alert, Oriented x3 - Psychiatric Exam Psychiatric exam: Normal Affect, Normal Mood - Skin Skin Exam: Normal Color Discharge Plan - Follow Up Plan Condition: GOOD Disposition: HOME/ ROUTINE Patient education suggested?: Yes Instructions: Foot Fracture (DC) Referrals: FAMILY PROVIDER,NO [Primary Care Provider] - <Raji Alexander - Last Filed: 06/23/18 18:04> Provider - Provider Date of Admission: 06/22/18 14:13 Attending physician: Raji Alexander MD Primary care physician: ANNY FAMILY PROVIDER Consults: 06/22/18 14:20 Physician Consult Routine Comment: Consulting Provider: Shannan Sebastian Consulting Physician: Shannan Sebastian Reason for Consult: pain managment s/p right foot [facility] Course - Lab Results Lab Results: Most Recent Lab Values WBC 8.4 K/uL (4.8-10.8) 06/23/18 06:05 RBC 3.95 Mil/uL (4.40-5.90) L 06/23/18 06:05 Hgb 12.4 g/dL (12.0-18.0) D 06/23/18 06:05 Hct 36.6 % (35.0-51.0) 06/23/18 06:05 MCV 92.6 fl (80.0-94.0) 06/23/18 06:05 MCH 31.5 pg (27.0-31.0) H 06/23/18 06:05 MCHC 34.0 g/dL (33.0-37.0) 06/23/18 06:05 RDW 13.3 % (11.5-14.5) 06/23/18 06:05 Plt Count 228 K/uL (130-400) 06/23/18 06:05 Sodium 138 mmol/l (132-148) 06/23/18 06:05 Potassium 3.8 MMOL/L (3.6-5.0) 06/23/18 06:05 Chloride 106 mmol/L (98-107) 06/23/18 06:05 Carbon Dioxide 27 mmol/L (22-30) 06/23/18 06:05 Anion Gap 9 (10-20) L 06/23/18 06:05 BUN 13 mg/dl (9-20) 06/23/18 06:05 Creatinine 0.9 mg/dl (0.8-1.5) 06/23/18 06:05 Est GFR ( Amer) > 60 06/23/18 06:05 Est GFR (Non-Af Amer) > 60 06/23/18 06:05 Random Glucose 101 mg/dL (75-110) 06/23/18 06:05 Calcium 8.6 mg/dL (8.4-10.2) 06/23/18 06:05 Attending/Attestation - Attestation I have personally seen and examined this patient.: Yes I have fully participated in the care of the patient.: Yes I have reviewed all pertinent clinical information, including history, physical exam and plan: Yes Notes (Text): 06/23/18 18:02 Patient seen and examined with resident. Case discussed and agreed with assessment. Patient transferred to Acute Rehab for futher therapy and pain management.
[2018-06-23 16:27] VITALS: BP 117/80; PULSE 82; TEMP 98.2; O2SAT 94
== END 2018-06-23 18:00 ==
LOC: H.OPSURG 06:01 → H.MEDSURG1 14:13
DX: S92.311A Displaced fracture of first metatarsal bone, right foot, initial encounter for closed fracture (principal); S92.321A Displaced fracture of second metatarsal bone, right foot, initial encounter for closed fracture; S92.331A Displaced fracture of third metatarsal bone, right foot, initial encounter for closed fracture; S92.341A Displaced fracture of fourth metatarsal bone, right foot, initial encounter for closed fracture; S96.811A Strain of other specified muscles and tendons at ankle and foot level, right foot, initial encounter; Z91.81 History of falling; W01.0XXA Fall on same level from slipping, tripping and stumbling without subsequent striking against object, initial encounter; F17.210 Nicotine dependence, cigarettes, uncomplicated; F20.9 Schizophrenia, unspecified; Z23 Encounter for immunization
CPT/HCPCS: 28485; 28730; 36415; 64445; 73630; 80048; 85027; 90732; 97162; 97166; 97530; G0008; G0009; G0378; G8978; G8979; G8987; G8988; J1630; J1650; J2001; J2250; J2370; J2405; J2704; J2765; J3010; J7120; Q2035

== ENCOUNTER 2018-06-23 17:06 | Inpatient (IN) | payer MEDICARE ==
[2018-06-22 06:31] VITALS: BMI 35.3
--- NOTE | 2018-06-23 18:39 | CP.PCM.HP ---
History of Present Illness - History of Present Illness History of Present Illness: 57 yp admitted for acute rehab Present on Admission - Present on Admission Any Indicators Present on Admission: No Past Patient History - Past Medical History & Family History Past Medical History?: Yes - Past Social History Smoking Status: Current Some Days Smoker - CARDIAC Hx Cardiac Disorders: No - PULMONARY Hx Respiratory Disorders: No - NEUROLOGICAL Hx Neurological Disorder: No - HEENT Hx HEENT Problems: No - RENAL Hx Chronic Kidney Disease: No - ENDOCRINE/METABOLIC Hx Endocrine Disorders: No - HEMATOLOGICAL/ONCOLOGICAL Hx Blood Disorders: No Hx Blood Transfusions: No - INTEGUMENTARY Hx Dermatological Problems: No - MUSCULOSKELETAL/RHEUMATOLOGICAL Hx Musculoskeletal Disorders: No - GASTROINTESTINAL Hx Gastrointestinal Disorders: No - GENITOURINARY/GYNECOLOGICAL Hx Genitourinary Disorders: No - PSYCHIATRIC Hx Emotional Abuse: No Hx Physical Abuse: No - SURGICAL HISTORY Hx Surgeries: Yes Other/Comment: REMOVAL OF BENIGN TUMOR ON THE RIB AREA - ANESTHESIA Hx Anesthesia: Yes Hx Anesthesia Reactions: No Hx Malignant Hyperthermia: No Meds Allergies/Adverse Reactions: Allergies Allergy/AdvReac Type Severity Reaction Status Date / Time Penicillins Allergy RASH Verified 06/23/18 17:24 Physical Exam - Respiratory Exam Respiratory Exam: NORMAL BREATHING PATTERN - Cardiovascular Exam Cardiovascular Exam: REGULAR RHYTHM - GI/Abdominal Exam GI & Abdominal Exam: Normal Bowel Sounds Assessment & Plan - Assessment and Plan (Free Text) Assessment: Fx R foot S/P ORIF POD PT OOB Incentive spirometry Lovenox 40 mg Pain management Schizophrenia Cont Haldol and cogentin Smoker ?? CAD ?? Angioplasty D/W family - Date & Time Date: 06/23/18 Time: 22:22
[2018-06-23] MEDS ORDERED: Oxycodone/Acetaminophen 5/325 mg Tab PO PRN ×2 (18:41)
[2018-06-23] MEDS: Haloperidol Lactate 2 mg/ml Liquid PO SCH (21:19)
[2018-06-24] MEDS: Haloperidol Lactate 2 mg/ml Liquid PO SCH ×2 (08:02→21:09)
[2018-06-24] MEDS: Enoxaparin 40 mg Syringe SC SCH (08:02)
--- NOTE | 2018-06-24 11:38 | CP.PCM.CON ---
History of Present Illness - History of Present Illness History of Present Illness: Podiatry progress: Dr. Salvador 57 year old male patient, with PMHx of schizophrenia, see and evaluated at bedside POD #2 right Lisfranc ORIF. Patient resting comfortably and in NAD. Patient states that he was seen by physical therapy today. He notes that his pain is significantly less than it was yesterday and his pain is well controlled at this time. Has no other acute complaints. Denies N/V/F/SOB/CP/Chills. PMHx: Schizophrenia PSHx: Angioplasty (35 years ago) SH: 1 PPD smoker, denies alcohol use All: PCN Past Patient History - Past Medical History & Family History Past Medical History?: Yes - Past Social History Smoking Status: Current Some Days Smoker - CARDIAC Hx Cardiac Disorders: No - PULMONARY Hx Respiratory Disorders: No - NEUROLOGICAL Hx Neurological Disorder: No - HEENT Hx HEENT Problems: No - RENAL Hx Chronic Kidney Disease: No - ENDOCRINE/METABOLIC Hx Endocrine Disorders: No - HEMATOLOGICAL/ONCOLOGICAL Hx Blood Disorders: No Hx Blood Transfusions: No - INTEGUMENTARY Hx Dermatological Problems: No - MUSCULOSKELETAL/RHEUMATOLOGICAL Hx Musculoskeletal Disorders: No - GASTROINTESTINAL Hx Gastrointestinal Disorders: No - GENITOURINARY/GYNECOLOGICAL Hx Genitourinary Disorders: No - PSYCHIATRIC Hx Emotional Abuse: No Hx Physical Abuse: No - SURGICAL HISTORY Hx Surgeries: Yes Other/Comment: REMOVAL OF BENIGN TUMOR ON THE RIB AREA - ANESTHESIA Hx Anesthesia: Yes Hx Anesthesia Reactions: No Hx Malignant Hyperthermia: No Meds Allergies/Adverse Reactions: Allergies Allergy/AdvReac Type Severity Reaction Status Date / Time Penicillins Allergy RASH Verified 06/23/18 17:24 - Medications Medications: Current Medications Acetaminophen (Tylenol 325mg Tab) 650 mg PO Q6 PRN PRN Reason: Pain, Mild (1-3) Benztropine Mesylate (Cogentin) 2 mg PO HS [facility] Last Admin: 06/23/18 21:19 Dose: 2 mg Enoxaparin Sodium (Lovenox) 40 mg SC DAILY [facility]; Protocol Last Admin: 06/24/18 08:02 Dose: 40 mg Gabapentin (Neurontin) 300 mg PO TID [facility] Last Admin: 06/24/18 08:03 Dose: 300 mg Haloperidol Lactate (Haldol) 5 mg PO Q12 [facility] Last Admin: 06/24/18 08:02 Dose: 5 mg Oxycodone/Acetaminophen (Percocet 5/325 Mg Tab) 1 tab PO Q4 PRN PRN Reason: Pain, moderate (4-7) Stop: 06/26/18 18:42 Oxycodone/Acetaminophen (Percocet 5/325 Mg Tab) 2 tab PO Q4 PRN PRN Reason: Pain, severe (8-10) Stop: 06/26/18 18:42 Physical Exam - Constitutional Appears: Well, Non-toxic, No Acute Distress - Head Exam Head Exam: ATRAUMATIC, NORMOCEPHALIC - Extremities Exam Additional comments: Right lower extremity dressing clean/dry/intact No strikethrough Patient able to wiggle toes N/V status intact - Neurological Exam Neurological exam: Alert, Oriented x3 - Psychiatric Exam Psychiatric exam: Normal Affect, Normal Mood Results - Vital Signs Recent Vital Signs: Last Vital Signs Temp 97.3 F L 06/24/18 08:11 Pulse 101 H 06/24/18 09:22 Resp 18 06/24/18 08:11 BP 112/70 06/24/18 08:11 Pulse Ox 96 06/24/18 09:22 Assessment & Plan - Assessment and Plan (Free Text) Assessment: 57 year old male patient POD#2 right foot lisfranc ORIF Plan: Patient seen and evaluated Discussed in detail with Dr. Salvador X-rays reviewed with patient and discussed satisfactory post op imaging Dressing and bivalved cast clean, dry, intact at this time Pain management consulted - recs appreciated PT eval - [facility] Continue medications per medicine - cleocin 600mg IV Q8 Stable for discharge to subacute rehab from podiatry standpoint, will continue with outpatient management with Dr. Salvador Will continue to follow while in house - Date & Time Date: 06/24/18 Time: 11:38
--- NOTE | 2018-06-24 12:49 | PCM.OPOC ---
Physiatry Overall Plan of Care - Overall Plan of Care Estimated Length of Stay in Weeks: 3 Rehab Impairment: Mobility, Gait, Balance, Coordination Etiologic Diagnosis: Other (ORIF foot) Rehab/Medical Prognosis: Good - Anticipated Interventions Physical Therapy:: Yes Occupational Therapy:: Yes Speech Therapy:: No Recreational Therapy:: Yes - Therapy Goals Bed Mobility: Independent Ambulation: Independent (with axillary crutches) Functional Positional Changes:: Independent - Discharge Plan Identification of Barriers to Discharge: Home Situation Discharge Destination: Home
--- NOTE | 2018-06-24 12:51 | CP.PCM.CON ---
History of Present Illness - History of Present Illness History of Present Illness: Dr Doss PMR consultation on Stuart Vega, born 1960, who has been admitted to [facility] acute inpatient rehabilitation following a right foot ORIF following a slip and fall with Lisfranc fracture and multiple 1-4 metatarsal fractures and cuboid/cuniform fractures. Short leg cast placed post op. No numbness or tingling in the right LE. Can wiggle toes. History of schizophrenia. On disability. Hasn't needed a psych admission since 1988. Compliant and well controlled with meds. Review of Systems - Constitutional Constitutional: absent: Anorexia, Chills - EENT Eyes: absent: Change in Vision Ears: absent: Ear Discharge, Ear Pain Nose/Mouth/Throat: absent: Nasal Congestion, Bleeding Gums - Cardiovascular Cardiovascular: absent: Chest Pain - Respiratory Respiratory: absent: Dyspnea, Hemoptysis - Gastrointestinal Gastrointestinal: absent: Constipation - Musculoskeletal Musculoskeletal: absent: Back Pain - Integumentary Integumentary: absent: Bleeding Lesions - Neurological Neurological: absent: Abnormal Hearing, Abnormal Movements, Burning Sensations, Confusion, Headaches, Paresthesias, Syncope, Vertigo Past Patient History - Past Medical History & Family History Past Medical History?: Yes - Past Social History Smoking Status: Current Some Days Smoker Home Situation {Lives}: Alone (15 or so stairs to basement apartment) - CARDIAC Hx Cardiac Disorders: No - PULMONARY Hx Respiratory Disorders: No - NEUROLOGICAL Hx Neurological Disorder: No - HEENT Hx HEENT Problems: No - RENAL Hx Chronic Kidney Disease: No - ENDOCRINE/METABOLIC Hx Endocrine Disorders: No - HEMATOLOGICAL/ONCOLOGICAL Hx Blood Disorders: No Hx Blood Transfusions: No - INTEGUMENTARY Hx Dermatological Problems: No - MUSCULOSKELETAL/RHEUMATOLOGICAL Hx Musculoskeletal Disorders: No - GASTROINTESTINAL Hx Gastrointestinal Disorders: No - GENITOURINARY/GYNECOLOGICAL Hx Genitourinary Disorders: No - PSYCHIATRIC Hx Emotional Abuse: No Hx Physical Abuse: No - SURGICAL HISTORY Hx Surgeries: Yes Other/Comment: REMOVAL OF BENIGN TUMOR ON THE RIB AREA - ANESTHESIA Hx Anesthesia: Yes Hx Anesthesia Reactions: No Hx Malignant Hyperthermia: No Meds Allergies/Adverse Reactions: Allergies Allergy/AdvReac Type Severity Reaction Status Date / Time Penicillins Allergy RASH Verified 06/23/18 17:24 - Medications Medications: Current Medications Acetaminophen (Tylenol 325mg Tab) 650 mg PO Q6 PRN PRN Reason: Pain, Mild (1-3) Benztropine Mesylate (Cogentin) 2 mg PO HS [facility] Last Admin: 06/23/18 21:19 Dose: 2 mg Enoxaparin Sodium (Lovenox) 40 mg SC DAILY [facility]; Protocol Last Admin: 06/24/18 08:02 Dose: 40 mg Gabapentin (Neurontin) 300 mg PO TID [facility] Last Admin: 06/24/18 12:10 Dose: 300 mg Haloperidol Lactate (Haldol) 5 mg PO Q12 [facility] Last Admin: 06/24/18 08:02 Dose: 5 mg Oxycodone/Acetaminophen (Percocet 5/325 Mg Tab) 1 tab PO Q4 PRN PRN Reason: Pain, moderate (4-7) Stop: 06/26/18 18:42 Oxycodone/Acetaminophen (Percocet 5/325 Mg Tab) 2 tab PO Q4 PRN PRN Reason: Pain, severe (8-10) Stop: 06/26/18 18:42 Physical Exam - Constitutional Appears: Non-toxic, No Acute Distress - Head Exam Head Exam: ATRAUMATIC, NORMAL INSPECTION, NORMOCEPHALIC - Eye Exam Eye Exam: EOMI - ENT Exam ENT Exam: Mucous Membranes Moist - Respiratory Exam Respiratory Exam: NORMAL BREATHING PATTERN - Cardiovascular Exam Cardiovascular Exam: REGULAR RHYTHM - GI/Abdominal Exam GI & Abdominal Exam: absent: Distended, Firm - Extremities Exam Extremities exam: Positive for: full ROM. Negative for: calf tenderness (on the left. SLC on the right) - Neurological Exam Neurological exam: Alert, CN II-XII Intact, Oriented x3 - Psychiatric Exam Psychiatric exam: Normal Affect, Normal Mood - Skin Skin Exam: Warm Results - Vital Signs Recent Vital Signs: Last Vital Signs Temp 97.3 F L 06/24/18 08:11 Pulse 101 H 06/24/18 09:22 Resp 18 06/24/18 08:11 BP 112/70 06/24/18 08:11 Pulse Ox 96 06/24/18 09:22 Assessment & Plan - Assessment and Plan (Free Text) Assessment: PT/OT to continue to help increase functional independence Team conference for d/c planning Pain: controlled Vascular: no evidence of DVT GI: No evidence of constipation or diarrhea Patient is an excellent acute rehabilitation candidate and will have focused pain management, PT, OT and recreational therapy to help facilitate a safe and appropriate d/c plan Impairment code: 08.9
--- NOTE | 2018-06-24 23:43 | CP.PCM.PN ---
Subjective - Date & Time of Evaluation Date of Evaluation: 06/24/18 Time of Evaluation: 22:22 - Subjective Subjective: Doing well Objective - Vital Signs/Intake and Output Vital Signs (last 24 hours): Temp Pulse Resp BP Pulse Ox 98.1 F 84 20 126/71 95 06/24/18 21:00 06/24/18 21:00 06/24/18 21:00 06/24/18 21:00 06/24/18 21:00 - Medications Medications: Current Medications Acetaminophen (Tylenol 325mg Tab) 650 mg PO Q6 PRN PRN Reason: Pain, Mild (1-3) Benztropine Mesylate (Cogentin) 1 mg PO Q12 [facility] Last Admin: 06/24/18 21:10 Dose: 1 mg Enoxaparin Sodium (Lovenox) 40 mg SC DAILY [facility]; Protocol Last Admin: 06/24/18 08:02 Dose: 40 mg Gabapentin (Neurontin) 300 mg PO TID [facility] Last Admin: 06/24/18 17:13 Dose: 300 mg Haloperidol Lactate (Haldol) 5 mg PO Q12 [facility] Last Admin: 06/24/18 21:09 Dose: 5 mg Oxycodone/Acetaminophen (Percocet 5/325 Mg Tab) 1 tab PO Q4 PRN PRN Reason: Pain, moderate (4-7) Stop: 06/26/18 18:42 Oxycodone/Acetaminophen (Percocet 5/325 Mg Tab) 2 tab PO Q4 PRN PRN Reason: Pain, severe (8-10) Stop: 06/26/18 18:42 - Respiratory Exam Respiratory Exam: NORMAL BREATHING PATTERN - Cardiovascular Exam Cardiovascular Exam: REGULAR RHYTHM - GI/Abdominal Exam GI & Abdominal Exam: Normal Bowel Sounds Assessment and Plan - Assessment and Plan (Free Text) Assessment: Fx R foot S/P ORIF POD PT OOB Incentive spirometry Lovenox 40 mg Pain management Schizophrenia Cont Haldol and cogentin Smoker ?? CAD ?? Angioplasty D/W family
[2018-06-25 07:04] LABS: HEMOGLOBIN 13.2 g/dL (12.0-18.0); MEAN CELL VOLUME 93.8 fl (80.0-94.0); MEAN CORPUSCULAR HEMOGLOBIN 31.7 pg (27.0-31.0); MEAN CORPUSCULAR HGB CONC 33.8 g/dL (33.0-37.0); RBC 4.16 Mil/uL (4.40-5.90); RED CELL DISTRIBUTION WIDTH 13.1 % (11.5-14.5); WHITE BLOOD COUNT 7.4 K/uL (4.8-10.8)
[2018-06-25 07:30] LABS: BLOOD UREA NITROGEN 13 mg/dl (9-20); CALCIUM 9.4 mg/dL (8.4-10.2); GFR NON-AFRICAN AMERICAN > 60
[2018-06-25] MEDS: Enoxaparin 40 mg Syringe SC SCH (09:56)
[2018-06-25] MEDS: Haloperidol Lactate 2 mg/ml Liquid PO SCH ×2 (09:56→21:01)
--- NOTE | 2018-06-25 14:18 | CP.PCM.PN ---
Subjective - Date & Time of Evaluation Date of Evaluation: 06/25/18 Time of Evaluation: 22:22 - Subjective Subjective: Doing well Objective - Vital Signs/Intake and Output Vital Signs (last 24 hours): Temp Pulse Resp BP Pulse Ox 97.3 F L 77 18 117/79 97 06/25/18 09:59 06/25/18 09:59 06/25/18 09:59 06/25/18 09:59 06/25/18 09:59 - Medications Medications: Current Medications Acetaminophen (Tylenol 325mg Tab) 650 mg PO Q6 PRN PRN Reason: Pain, Mild (1-3) Last Admin: 06/25/18 00:30 Dose: 650 mg Benztropine Mesylate (Cogentin) 1 mg PO Q12 [facility] Last Admin: 06/25/18 09:56 Dose: 1 mg Enoxaparin Sodium (Lovenox) 40 mg SC DAILY [facility]; Protocol Last Admin: 06/25/18 09:56 Dose: 40 mg Gabapentin (Neurontin) 300 mg PO TID [facility] Last Admin: 06/25/18 12:19 Dose: 300 mg Haloperidol Lactate (Haldol) 5 mg PO Q12 [facility] Last Admin: 06/25/18 09:56 Dose: 5 mg Oxycodone/Acetaminophen (Percocet 5/325 Mg Tab) 1 tab PO Q4 PRN PRN Reason: Pain, moderate (4-7) Stop: 06/26/18 18:42 Oxycodone/Acetaminophen (Percocet 5/325 Mg Tab) 2 tab PO Q4 PRN PRN Reason: Pain, severe (8-10) Stop: 06/26/18 18:42 - Labs Labs: 06/25/18 06:00 06/25/18 06:00 - Respiratory Exam Respiratory Exam: NORMAL BREATHING PATTERN - Cardiovascular Exam Cardiovascular Exam: Tachycardia - GI/Abdominal Exam GI & Abdominal Exam: Normal Bowel Sounds Assessment and Plan - Assessment and Plan (Free Text) Assessment: Fx R foot S/P ORIF POD #5 PT OOB Incentive spirometry Lovenox 40 mg Pain management Schizophrenia Cont Haldol and cogentin Smoker
--- NOTE | 2018-06-26 06:46 | CP.PCM.PN ---
Subjective - Date & Time of Evaluation Date of Evaluation: 06/26/18 Time of Evaluation: 06:45 - Subjective Subjective: Podiatry progress note for Dr. Salvador 57M seen and evaluated at bedside with Dr. Salvador. Patient resting comfortably. States he has mild pain in his foot and lower leg but medication is helping. Denies pain to posterior calf. Denies N/V/F/C/SOB/CP. Has no acute complaints. Objective - Vital Signs/Intake and Output Vital Signs (last 24 hours): Temp Pulse Resp BP Pulse Ox 98.4 F 94 H 20 120/80 95 06/25/18 21:00 06/25/18 21:00 06/25/18 21:00 06/25/18 21:00 06/25/18 21:00 - Medications Medications: Current Medications Acetaminophen (Tylenol 325mg Tab) 650 mg PO Q6 PRN PRN Reason: Pain, Mild (1-3) Last Admin: 06/25/18 00:30 Dose: 650 mg Benztropine Mesylate (Cogentin) 1 mg PO Q12 [facility] Last Admin: 06/25/18 21:02 Dose: 1 mg Enoxaparin Sodium (Lovenox) 40 mg SC DAILY [facility]; Protocol Last Admin: 06/25/18 09:56 Dose: 40 mg Gabapentin (Neurontin) 300 mg PO TID [facility] Last Admin: 06/25/18 16:11 Dose: 300 mg Haloperidol Lactate (Haldol) 5 mg PO Q12 [facility] Last Admin: 06/25/18 21:01 Dose: 5 mg Oxycodone/Acetaminophen (Percocet 5/325 Mg Tab) 1 tab PO Q4 PRN PRN Reason: Pain, moderate (4-7) Stop: 06/26/18 18:42 Oxycodone/Acetaminophen (Percocet 5/325 Mg Tab) 2 tab PO Q4 PRN PRN Reason: Pain, severe (8-10) Stop: 06/26/18 18:42 - Labs Labs: 06/25/18 06:00 06/25/18 06:00 - Constitutional Appears: Well, Non-toxic, No Acute Distress - Head Exam Head Exam: ATRAUMATIC, NORMOCEPHALIC - Extremities Exam Additional comments: Dressing clean, dry, and intact Left on Neurovascular status intact - Neurological Exam Neurological Exam: Alert, Awake, Oriented x3 - Psychiatric Exam Psychiatric exam: Normal Affect, Normal Mood Assessment and Plan - Assessment and Plan (Free Text) Assessment: 57 year old male patient POD 4 right foot lisfranc ORIF Plan: Patient seen and evaluated with Dr. Salvador Afebrile Dressing and bivalved cast clean, dry, intact at this time Pain management consulted - recs appreciated PT eval - recommend care home rehab Continue medications per medicine Stable for discharge from podiatry standpoint, will f/u with Dr. Salvador as outpatient Will continue to follow while in house
[2018-06-26] MEDS: Haloperidol Lactate 2 mg/ml Liquid PO SCH ×2 (08:42→21:14)
[2018-06-26] MEDS: Enoxaparin 40 mg Syringe SC SCH (08:43)
[2018-06-26] MEDS ORDERED: Alum-Mag Hydrox-Simethicone Susp (30 mL) PO ONE (14:04)
--- NOTE | 2018-06-26 16:47 | CARD ---
APPROVED REPORT Date of service: 06/26/2018 EKG Measurement Heart [id number] <Conclusion> Sinus tachycardia Otherwise normal ECG
[2018-06-26] MEDS ORDERED: Acetaminophen-Codeine 300/30 mg Tab PO PRN (17:01)
--- NOTE | 2018-06-26 17:07 | CP.PCM.PN ---
Subjective - Date & Time of Evaluation Date of Evaluation: 06/26/18 Time of Evaluation: 17:04 - Subjective Subjective: patient seen in the room doing ok had some BP and HR issues this -am but stable now felt that meds were the cause and therefore I lowered the dose of the Neurontin and put pain scale parameters on the medications Objective - Vital Signs/Intake and Output Vital Signs (last 24 hours): Temp Pulse Resp BP Pulse Ox 97 F L 84 18 128/71 97 06/26/18 08:58 06/26/18 08:58 06/26/18 08:58 06/26/18 08:58 06/26/18 08:58 - Medications Medications: Current Medications Acetaminophen/Codeine Phosphate (Tylenol/Codeine 300 Mg/30 Mg) 1 tab PO Q6 PRN PRN Reason: pain 7-03/29 Benztropine Mesylate (Cogentin) 1 mg PO Q12 [facility] Last Admin: 06/26/18 08:43 Dose: 1 mg Docusate Sodium (Colace) 100 mg PO BID [facility] Last Admin: 06/26/18 16:41 Dose: 100 mg Enoxaparin Sodium (Lovenox) 40 mg SC DAILY [facility]; Protocol Last Admin: 06/26/18 08:43 Dose: 40 mg Gabapentin (Neurontin) 100 mg PO TID [facility] Haloperidol Lactate (Haldol) 5 mg PO Q12 [facility] Last Admin: 06/26/18 08:42 Dose: 5 mg - Labs Labs: 06/25/18 06:00 06/25/18 06:00
--- NOTE | 2018-06-26 20:59 | CP.PCM.PN ---
Subjective - Date & Time of Evaluation Date of Evaluation: 06/26/18 Time of Evaluation: 22:22 - Subjective Subjective: Increased HR during rehab Cardiology consulted Objective - Vital Signs/Intake and Output Vital Signs (last 24 hours): Temp Pulse Resp BP Pulse Ox 97 F L 108 H 18 128/71 97 06/26/18 08:58 06/26/18 13:40 06/26/18 08:58 06/26/18 13:40 06/26/18 13:40 - Medications Medications: Current Medications Acetaminophen (Tylenol 325mg Tab) 650 mg PO Q6 PRN PRN Reason: pain -03/29 Benztropine Mesylate (Cogentin) 1 mg PO Q12 [facility] Last Admin: 06/26/18 08:43 Dose: 1 mg Docusate Sodium (Colace) 100 mg PO BID [facility] Last Admin: 06/26/18 16:41 Dose: 100 mg Enoxaparin Sodium (Lovenox) 40 mg SC DAILY [facility]; Protocol Last Admin: 06/26/18 08:43 Dose: 40 mg Gabapentin (Neurontin) 100 mg PO TID [facility] Last Admin: 06/26/18 17:21 Dose: Not Given Haloperidol Lactate (Haldol) 5 mg PO Q12 [facility] Last Admin: 06/26/18 08:42 Dose: 5 mg - Labs Labs: 06/25/18 06:00 06/25/18 06:00 - Respiratory Exam Respiratory Exam: NORMAL BREATHING PATTERN - Cardiovascular Exam Cardiovascular Exam: REGULAR RHYTHM - GI/Abdominal Exam GI & Abdominal Exam: Normal Bowel Sounds Assessment and Plan - Assessment and Plan (Free Text) Assessment: Increased HR during rehab Cardiology consulted Fx R foot S/P ORIF POD #6 PT OOB Incentive spirometry Lovenox 40 mg Pain management Schizophrenia Cont Haldol and cogentin Smoker
[2018-06-26] MEDS ORDERED: Magnesium Hydroxide Susp 30 ml UD PO PRN (21:19)
[2018-06-27] MEDS: Haloperidol Lactate 2 mg/ml Liquid PO SCH ×2 (08:33→21:42)
[2018-06-27] MEDS: Enoxaparin 40 mg Syringe SC SCH (08:34)
--- NOTE | 2018-06-27 09:07 | CP.PCM.PN ---
Subjective - Date & Time of Evaluation Date of Evaluation: 06/27/18 Time of Evaluation: 09:07 - Subjective Subjective: Podiatry progress note for Dr. Salvador 57M seen and evaluated at bedside with Dr. Salvador. Patient resting comfortably. Denies pain to his foot and leg. Denies pain to posterior calf. States he has been participating in PT. Denies N/V/F/C/SOB/CP. Has no acute complaints. Objective - Vital Signs/Intake and Output Vital Signs (last 24 hours): Temp Pulse Resp BP Pulse Ox 96.8 F L 92 H 20 100/72 97 06/27/18 08:42 06/27/18 08:42 06/27/18 08:42 06/27/18 08:42 06/27/18 07:30 - Medications Medications: Current Medications Acetaminophen (Tylenol 325mg Tab) 650 mg PO Q6 PRN PRN Reason: pain 1-03/29 Benztropine Mesylate (Cogentin) 1 mg PO Q12 [facility] Last Admin: 06/27/18 08:34 Dose: 1 mg Docusate Sodium (Colace) 100 mg PO BID [facility] Last Admin: 06/27/18 08:34 Dose: 100 mg Enoxaparin Sodium (Lovenox) 40 mg SC DAILY [facility]; Protocol Last Admin: 06/27/18 08:34 Dose: 40 mg Haloperidol Lactate (Haldol) 5 mg PO Q12 [facility] Last Admin: 06/27/18 08:33 Dose: 5 mg Magnesium Hydroxide (Milk Of Magnesia) 30 ml PO DAILY PRN PRN Reason: Constipation - Labs Labs: 06/25/18 06:00 06/25/18 06:00 - Constitutional Appears: Well, Non-toxic, No Acute Distress - Head Exam Head Exam: ATRAUMATIC, NORMOCEPHALIC - Extremities Exam Additional comments: Dressing clean, dry, and intact Neurovascular status intact - Neurological Exam Neurological Exam: Alert, Awake, Oriented x3 - Psychiatric Exam Psychiatric exam: Normal Affect, Normal Mood Assessment and Plan - Assessment and Plan (Free Text) Assessment: 57 year old male patient POD 5 right foot lisfranc ORIF Plan: Patient seen and evaluated with Dr. Salvador Afebrile Dressing and bivalved cast clean, dry, intact at this time Pain management consulted - recs appreciated PT eval - recommend [facility] Continue medications per medicine Continue DVT prophylaxis with lovenox Will f/u with Dr. Salvador as outpatient Will continue to follow while in house
--- NOTE | 2018-06-27 11:53 | CP.PCM.CON ---
History of Present Illness - History of Present Illness History of Present Illness: THE PATIENT IS A 57 YEAR OLD MALE WHO FELL A COUPLE OF WEEKS AGO AND SUSTAINED FRACTURES IN HIS RIGHT FOOT. HE HAD SURGERY ON 06/23/18 AND IS NOW IN ACUTE REHAB. HE ALSO HAS A HISTORY OF SCHIZOPHRENIA. HE DOESN'T HAVE ANY CARDIAC HISTORY. HE IS DECONDITIONED HE DIDN'T EXERCISE IN THE RECENT PAST AND HAS NOT BEEN ACTIVE SINCE HE SUSTAINED HIS FOOT FRACTURE. I WAS CALLED TO SEE HIM YESTERDAY BECAUSE HIS HEART RATE WENT UP TO THE 120'S WITH EXERCISE IN REHAB. HE DENIES CHEST PAIN, PALPITATIONS OR SOB. AN EKG AFTERWARDS SHOWED ST AT 112 BPM AND HIS HEART RATE DECREASED TO UNDER 100. Past Patient History - Past Medical History & Family History Past Medical History?: Yes - Past Social History Smoking Status: Current Some Days Smoker - CARDIAC Hx Cardiac Disorders: No - PULMONARY Hx Respiratory Disorders: No - NEUROLOGICAL Hx Neurological Disorder: No - HEENT Hx HEENT Problems: No - RENAL Hx Chronic Kidney Disease: No - ENDOCRINE/METABOLIC Hx Endocrine Disorders: No - HEMATOLOGICAL/ONCOLOGICAL Hx Blood Disorders: No Hx Blood Transfusions: No - INTEGUMENTARY Hx Dermatological Problems: No - MUSCULOSKELETAL/RHEUMATOLOGICAL Hx Musculoskeletal Disorders: No - GASTROINTESTINAL Hx Gastrointestinal Disorders: No - GENITOURINARY/GYNECOLOGICAL Hx Genitourinary Disorders: No - PSYCHIATRIC Hx Emotional Abuse: No Hx Physical Abuse: No - SURGICAL HISTORY Hx Surgeries: Yes Other/Comment: REMOVAL OF BENIGN TUMOR ON THE RIB AREA - ANESTHESIA Hx Anesthesia: Yes Hx Anesthesia Reactions: No Hx Malignant Hyperthermia: No Meds Allergies/Adverse Reactions: Allergies Allergy/AdvReac Type Severity Reaction Status Date / Time Penicillins Allergy RASH Verified 06/23/18 17:24 - Medications Medications: Current Medications Acetaminophen (Tylenol 325mg Tab) 650 mg PO Q6 PRN PRN Reason: pain 1-03/29 Benztropine Mesylate (Cogentin) 1 mg PO Q12 [facility] Last Admin: 06/27/18 08:34 Dose: 1 mg Docusate Sodium (Colace) 100 mg PO BID [facility] Last Admin: 06/27/18 08:34 Dose: 100 mg Enoxaparin Sodium (Lovenox) 40 mg SC DAILY [facility]; Protocol Last Admin: 06/27/18 08:34 Dose: 40 mg Haloperidol Lactate (Haldol) 5 mg PO Q12 [facility] Last Admin: 06/27/18 08:33 Dose: 5 mg Magnesium Hydroxide (Milk Of Magnesia) 30 ml PO DAILY PRN PRN Reason: Constipation Physical Exam - Respiratory Exam Respiratory Exam: Clear to Auscultation Bilateral - Cardiovascular Exam Cardiovascular Exam: REGULAR RHYTHM, +S1, +S2 - Additional Findings Additional findings: EKG YESTERDAY ST, R 112 HEART RATE WHILE IN HIS ROOM IS UNDER 100 K+ 4.1 H/H Results - Vital Signs Recent Vital Signs: Last Vital Signs Temp 96.8 F L 06/27/18 08:42 Pulse 92 H 06/27/18 08:42 Resp 20 06/27/18 08:42 BP 100/72 06/27/18 08:42 Pulse Ox 97 06/27/18 07:30 - Labs Result Diagrams: 06/28/18 05:25 06/28/18 05:25 Assessment & Plan - Assessment and Plan (Free Text) Assessment: MILD SINUS TACHYCARDIA DURING REHAB-THIS IS WNL FOR A DECONDITIONED PATIENT DURING REHABILITATION EXERCISES S/P FOOT SURGERY FOR FRACTURES SCHIZOPHRENIA Plan: NO SPECIAL TREATMENT NEEDED FOR MILD SINUS TACHYCARDIA DURING REHAB SESSIONS AND REHAB CAN CONTINUE CONTINUE COGENTIN, HALDOL AND LOVENOX
--- NOTE | 2018-06-27 13:10 | PCM.PSYTMC ---
Acute Rehab Team Conference - - Vital Signs: Vital Signs (Last 8 Hours): Vital Signs 06/27/18 06/27/18 07:30 08:42 Temperature 96.8 F L 96.8 F L Pulse Rate 92 H 92 H Respiratory 20 20 Rate Blood Pressure 100/72 100/72 O2 Sat by Pulse 97 Oximetry Pain: 0 - Precautions: Precautions: Fall Prevention - Medications/Other Issues: Comment: no bm for 4 days refused suppository mom was offered and think he will have bm today prune juice offered but does not like it complaints that food is not enough compare to what hes eating at home ,no discomfort - Consults: Comment: DR Doss,Dr Salvador,Dr Medina - Skin: Incision Line Treatment: rt foot with fiberglass cast with rustam wrap dressing done by podiatry - Toileting: Toileting: Minimal Assistance - Bladder Management: Bladder Pattern: Normal Voiding Method: Urinal Bladder Management: Supervision - Transfers: Transfers: Contact Guard - ADL's: ADL's: Minimal Assistance - Pain Management: Other Intervention:: tylenol for pain - Patient/Family Teaching: Other Intervention:: medication teachings ,safety and fall precaution ,care of the cast, weight bearing status,pain meds - Goals/Time Frame: Comment: as per multidiciplinary plan of care - Provider: Registered Nurse:: Lisa Wheeler Physical Therapy - Bed Mobility Bed Mobility: Supervision, Verbal Cues - Transfers Wheelchair to Mat: Verbal Cues, Contact Guard Sit to Stand: Supervision, Verbal Cues, Contact Guard - Ambulation Level of Assistance: Minimal Assistance Distance (ft.): 10 Assistive Devices: Rolling Walker Orthoses: n/a Comment: -CG/min A for balance. -cues to maintain breathing during task as well as to maintain NWB to RLE. -patient with limited step height on LLE but it improves with increased repetitions. -x3 trials with prolonged rest breaks as heart rate increases to 131bpm with activity and returns with rest to 124bpm within 45 seconds and to baseline of 110 seconds within 3-4 minutes - Stair Negotiation Stairs: Level of Assistance: Not Tested Comment: to be assessed using bumping technique as patient shows improved status - Standing Balance Static Stand: Supervision Comment: RW - Pain Pain (assessed during therapy session): 0 Comment: denies R foot pain - Insight/Carryover Insight/Carryover: Fair - Patient/Family Education Comment: -safety, therapy schedule, therapy goals, importance of OOB, weight bearing status, rehabilitation goals, mobilization of steps - Assessment/Plan Assessment: Patient limited in therapy today 2' to elevated heat rate. RN aware and present to monitor patient. Patient is agreeable to participate in therapy but requires prolonged rest breaks between activities, repetitions and tasks 2' to elevated heart rate. Pt did better today with hopping but continues to have impaired tolerance to tasks 2' to reports of back pain and discomfort. Patient remains very hesitant regarding possible home discharge. PT recommends skilled therapy to continue addressing skilled therapy goals s/p R ankle surgery. Pt returned to room at end of session with all needs met and call infante in reach. PT continues to recommend discharge to [facility] vs home with assistance pending patient progress. - Goals Timeframe: 7 days Goals: mod I with bed/mat mobility. S with transfers. CG to hope 25 feet. mod A for stair negotiation - Provider Physical Therapist:: Leslie Handley License Number:: [id number] Occupational Therapy - Arousal/Attention/Orientation Level of Consciousness: Awake, Alert Patient Orientation: Person, Place, Time, Appropriate to Age, Appropriate to Situation - ADL/IADL Self Feeding: Modified Independent Grooming: Independent, Set-up Help Bathing-Upper Ext: Verbal Cues, Set-up Help, Minimal Assistance Bathing-Lower Ext: Verbal Cues, Set-up Help, Moderate Assistance Dressing-Upper Ext: Independent, Set-up Help Dressing-Lower Ext: Supervision, Verbal Cues, Minimal Assistance Comment: RLE covered--2 bags/sealed prior to shower task - Sitting Balance Static Sitting: Independent without upper extremity support Dynamic Sitting: Reaches across midline, Reaches out of base of support, Reaches within base of support, Requires supervision Comment: seated unsupported - Transfers Wheelchair to Bed Transfers: Verbal Cues, Set-up Help, Minimal Assistance Toilet Transfers: Verbal Cues, Set-up Help, Minimal Assistance Comment: shower transfers: min assist and verbal cues, RLE-NWB - Wheelchair Management Level of Assistance: Supervision, Verbal Cues Distance (ft.): 150 - Upper Extremity Status Right Upper Extremity Comment: AROM : WNLS Left Upper Extremity Comment: AROM : WNLs - Pain Pain (assessed during therapy session): 2 Alleviating Techniques: Medication, Elevation, Inactivity - Insight/Carryover Insight/Carryover: Fair - Patient/Family Education Comment: -adls/transfer/mobility training adhering to RLE-NWB. -w/c management/propulsion. -energy conservation/work simplification. -encourage adl participation, pacing self and breathing. -reinforcement of RLE-NWB with sit<->stand and all transfers - Assessment/Plan Assessment: Pt is a 57 year old male with dx: R foot surgery, NWB. Precautions: RLE NWB, falls. Pt limited by +RLE pain, impaired standing balance/tolerance, impaired activity tolerance/encurance, impaired adherance RLE-NWB, impaired knowledge of adaptive/compensatory strategies. Pt will continue skilled Occupatioal Therapy to maximize function in self care, transfers/mobiliity utilizing adaptive/compensatory strategies, devices while adhering to RLE NWB. Pt continues to demonstrate improve adherance to RLE-NWB. Pt with elevated hr 06/26/18 with activities thus give frequent rest braeks. O2 sat 96%-98% throught tx session, resting hr; 108, working hr: 120-126. Pt motivated to participate in therapy program. *Goal: Mod I level for self care, transfers/mobility intermittently using W/c for long distances--using assistive devices - Goals Timeframe: 1 week Comment: -TRANSFERS: Supervision<->bed, commode, w/c, chair and other surfaces. -BED MOBILITY: Mod I supine<->sit, roll B side. -BATHING: Supervision/setup seated. -LOWER BODY DRESSING: Supervision/setup. -TOILETING: Supervision/setup. -KITCHEN TASKS: Supervision/w/c level. -GATHER/TRANSPORTS ITEMS:<>drawer, closet and other areaswith Mod I w/c level for completion of daily living atasks. -W/C PROPULSION/MANaGEMENT: propel w/c 150 feet + with Mod I, manages b rakes/B legrest with Mod I - Provider Occupational Therapist:: Sarah Mancera License Number: [id number] Recreational Therapy - Participation Participation: Participates in Individual and/or Group Sessions - Attendance Attendance: 3-5 times per week - Activities Leisure Activities: Television - Socialization Level of Socialization: Initiates/interacts freely with care givers and peer - Diversional Time Diversional Time: television, reading the paper, jigsaw puzzles - Assessment Assessment/Plan: Pt was oriented to benefits and purpose of participating in recreation therapy sessions throughout stay on unit. Pt agreeable to participate in leisure tasks for diversional purposes to improve arousal level and distract pt from pain. Pt will benefit from participating in recreation therapy sessions throughout stay on unit. Problems Currently Limiting Participation: NWB-R LE, decrease leisure awareness level, decrease activity tolerance level, pain Goals and Time Frame: Pt will be encouraged to participate in 1:1 and group recreation therapy sessions 3-5x week to improve on leisure awareness level, arousal level, activity tolerance level, and mood state by date of discharge. - Provider Therapist: Charla Us Nutrition - Current Diet Current Diet/Supplement/Feedings: Heart healthy - Appetite Percent Meal Consumed: 75-100% - Assessment/Goals/Time Frame Assessments/Goals/Time Frame: To follow as per nutrition protocol - Provider Provider: Malia Layton Case Management - Psychosocial Assessment Support Systems: Eliz Bustillo ([facility] [phone] Psychological Interventions/Needs: Patient is AAOx3 with a hx of schizophrenia that is managed with Haldol Discharge Concerns: Patient is NWB of the E for 3 months and lives in a basement apartment with a flight of stairs. Patient/Family Meeting: CM met with patient and rehab team. Intervention/Goal/Outcome: 1. Goal: Supervision 2. Plan: home vs. ISABELLA 3. Discuss options with patient and family 4. follow up appointments 5. DME needs 6. continued emotional support - Discharge Plan Discharge Plan: Home with services Home Services: [facility]? - Provider Provider: Kitty Hamm License Number: [id number] Rehabilitation Plan - Treatment Plan Treatment Plan: Physical Therapy, Occupational Therapy, Dietary, Patient/Family Education - Discharge Plan Estimated Date of Discharge: 07/03/18 Discharge to: Subacute
--- NOTE | 2018-06-27 13:17 | CP.PCM.PN ---
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 Objective - Vital Signs/Intake and Output Vital Signs (last 24 hours): Temp Pulse Resp BP Pulse Ox 96.8 F L 92 H 20 100/72 97 06/27/18 08:42 06/27/18 08:42 06/27/18 08:42 06/27/18 08:42 06/27/18 07:30 - Medications Medications: Current Medications Acetaminophen (Tylenol 325mg Tab) 650 mg PO Q6 PRN PRN Reason: pain 1-03/29 Benztropine Mesylate (Cogentin) 1 mg PO Q12 [facility] Last Admin: 06/27/18 08:34 Dose: 1 mg Docusate Sodium (Colace) 100 mg PO BID [facility] Last Admin: 06/27/18 08:34 Dose: 100 mg Enoxaparin Sodium (Lovenox) 40 mg SC DAILY [facility]; Protocol Last Admin: 06/27/18 08:34 Dose: 40 mg Haloperidol Lactate (Haldol) 5 mg PO Q12 [facility] Last Admin: 06/27/18 08:33 Dose: 5 mg Magnesium Hydroxide (Milk Of Magnesia) 30 ml PO DAILY PRN PRN Reason: Constipation - Labs Labs: 06/25/18 06:00 06/25/18 06:00
--- NOTE | 2018-06-27 21:12 | CP.PCM.PN ---
Subjective - Date & Time of Evaluation Date of Evaluation: 06/27/18 Time of Evaluation: 22:22 - Subjective Subjective: Doing well Cardiology note appreciated Objective - Vital Signs/Intake and Output Vital Signs (last 24 hours): Temp Pulse Resp BP Pulse Ox 97.7 F 83 20 105/63 98 06/27/18 20:00 06/27/18 20:00 06/27/18 20:00 06/27/18 20:00 06/27/18 20:00 - Medications Medications: Current Medications Acetaminophen (Tylenol 325mg Tab) 650 mg PO Q6 PRN PRN Reason: pain -03/29 Last Admin: 06/27/18 16:40 Dose: 650 mg Benztropine Mesylate (Cogentin) 1 mg PO Q12 [facility] Last Admin: 06/27/18 08:34 Dose: 1 mg Docusate Sodium (Colace) 100 mg PO BID [facility] Last Admin: 06/27/18 16:42 Dose: 100 mg Enoxaparin Sodium (Lovenox) 40 mg SC DAILY [facility]; Protocol Last Admin: 06/27/18 08:34 Dose: 40 mg Haloperidol Lactate (Haldol) 5 mg PO Q12 [facility] Last Admin: 06/27/18 08:33 Dose: 5 mg Magnesium Hydroxide (Milk Of Magnesia) 30 ml PO DAILY PRN PRN Reason: Constipation - Labs Labs: 06/25/18 06:00 06/25/18 06:00 - Respiratory Exam Respiratory Exam: NORMAL BREATHING PATTERN - Cardiovascular Exam Cardiovascular Exam: REGULAR RHYTHM - GI/Abdominal Exam GI & Abdominal Exam: Normal Bowel Sounds Assessment and Plan - Assessment and Plan (Free Text) Assessment: IFx R foot S/P ORIF POD #7 PT OOB Incentive spirometry Lovenox 40 mg Pain management Schizophrenia Cont Haldol and cogentin Smoker
[2018-06-28 06:33] LABS: HEMOGLOBIN 13.3 g/dL (12.0-18.0); MEAN CELL VOLUME 92.1 fl (80.0-94.0); MEAN CORPUSCULAR HEMOGLOBIN 31.7 pg (27.0-31.0); MEAN CORPUSCULAR HGB CONC 34.5 g/dL (33.0-37.0); RBC 4.21 Mil/uL (4.40-5.90); WHITE BLOOD COUNT 6.1 K/uL (4.8-10.8)
[2018-06-28 07:06] LABS: BLOOD UREA NITROGEN 16 mg/dl (9-20); GFR NON-AFRICAN AMERICAN > 60
[2018-06-28] MEDS: Enoxaparin 40 mg Syringe SC SCH (08:12)
[2018-06-28] MEDS: Haloperidol Lactate 2 mg/ml Liquid PO SCH ×2 (09:36→21:27)
--- NOTE | 2018-06-28 09:47 | CP.PCM.PN ---
Subjective - Date & Time of Evaluation Date of Evaluation: 06/28/18 Time of Evaluation: 09:46 - Subjective Subjective: Podiatry progress note for Dr. Salvador 57M POD 6 right lisfranc ORIF seen and evaluated at bedside. Patient resting comfortably. Denies pain to his foot and leg. Denies pain to posterior calf. States he has been participating in PT however he remains short of breath. Denies N/V/F/C/CP. Has no acute complaints. Objective - Vital Signs/Intake and Output Vital Signs (last 24 hours): Temp Pulse Resp BP Pulse Ox 97.0 F L 77 20 112/78 98 06/28/18 07:31 06/28/18 07:31 06/28/18 07:31 06/28/18 07:31 06/28/18 07:31 - Medications Medications: Current Medications Acetaminophen (Tylenol 325mg Tab) 650 mg PO Q6 PRN PRN Reason: pain 1-03/29 Last Admin: 06/27/18 16:40 Dose: 650 mg Benztropine Mesylate (Cogentin) 1 mg PO Q12 [facility] Last Admin: 06/28/18 08:12 Dose: 1 mg Docusate Sodium (Colace) 100 mg PO BID [facility] Last Admin: 06/28/18 08:12 Dose: 100 mg Enoxaparin Sodium (Lovenox) 40 mg SC DAILY [facility]; Protocol Last Admin: 06/28/18 08:12 Dose: 40 mg Haloperidol Lactate (Haldol) 5 mg PO Q12 [facility] Last Admin: 06/28/18 09:36 Dose: 5 mg Magnesium Hydroxide (Milk Of Magnesia) 30 ml PO DAILY PRN PRN Reason: Constipation - Labs Labs: 06/28/18 05:25 06/28/18 05:25 - Constitutional Appears: Well, Non-toxic, No Acute Distress - Head Exam Head Exam: ATRAUMATIC, NORMOCEPHALIC - Extremities Exam Additional comments: Dressing clean, dry, and intact Neurovascular status intact - Neurological Exam Neurological Exam: Alert, Awake, Oriented x3 - Psychiatric Exam Psychiatric exam: Normal Affect, Normal Mood Assessment and Plan - Assessment and Plan (Free Text) Assessment: 57 year old male patient POD6 right foot lisfranc ORIF Plan: Patient seen and evaluated Discussed in detail with Dr. Salvador Afebrile, absent leukocytosis Dressing and bivalved cast clean, dry, intact at this time Pain management consulted - recs appreciated PT eval - recommend [facility] Continue medications per medicine Cardiology on consult, Dr. Medina - jose luiss appreciated Continue DVT prophylaxis with lovenox Will f/u with Dr. Salvador as outpatient Will continue to follow while in house
--- NOTE | 2018-06-28 18:04 | CP.PCM.PN ---
Subjective - Date & Time of Evaluation Date of Evaluation: 06/28/18 Time of Evaluation: 18:03 - Subjective Subjective: Patient seen in the room doing ok no pain at all did much better in therapies and more confident with reduced anxiety tried stairs and bumping as well much to work on continue current care Objective - Vital Signs/Intake and Output Vital Signs (last 24 hours): Temp Pulse Resp BP Pulse Ox 97.0 F L 77 20 112/78 98 06/28/18 07:31 06/28/18 07:31 06/28/18 07:31 06/28/18 07:31 06/28/18 07:31 - Medications Medications: Current Medications Acetaminophen (Tylenol 325mg Tab) 650 mg PO Q6 PRN PRN Reason: pain -03/29 Last Admin: 06/27/18 16:40 Dose: 650 mg Benztropine Mesylate (Cogentin) 1 mg PO Q12 [facility] Last Admin: 06/28/18 08:12 Dose: 1 mg Docusate Sodium (Colace) 100 mg PO BID [facility] Last Admin: 06/28/18 16:20 Dose: 100 mg Enoxaparin Sodium (Lovenox) 40 mg SC DAILY [facility]; Protocol Last Admin: 06/28/18 08:12 Dose: 40 mg Haloperidol Lactate (Haldol) 5 mg PO Q12 [facility] Last Admin: 06/28/18 09:36 Dose: 5 mg Magnesium Hydroxide (Milk Of Magnesia) 30 ml PO DAILY PRN PRN Reason: Constipation - Labs Labs: 06/28/18 05:25 06/28/18 05:25
--- NOTE | 2018-06-28 20:31 | CP.PCM.PN ---
Subjective - Date & Time of Evaluation Date of Evaluation: 06/28/18 Time of Evaluation: 22:22 - Subjective Subjective: Doing well Objective - Vital Signs/Intake and Output Vital Signs (last 24 hours): Temp Pulse Resp BP Pulse Ox 98.8 F 77 20 105/80 97 06/28/18 19:47 06/28/18 19:47 06/28/18 19:47 06/28/18 19:47 06/28/18 19:47 - Medications Medications: Current Medications Acetaminophen (Tylenol 325mg Tab) 650 mg PO Q6 PRN PRN Reason: pain -03/29 Last Admin: 06/28/18 19:31 Dose: 650 mg Benztropine Mesylate (Cogentin) 1 mg PO Q12 [facility] Last Admin: 06/28/18 08:12 Dose: 1 mg Docusate Sodium (Colace) 100 mg PO BID [facility] Last Admin: 06/28/18 16:20 Dose: 100 mg Enoxaparin Sodium (Lovenox) 40 mg SC DAILY [facility]; Protocol Last Admin: 06/28/18 08:12 Dose: 40 mg Haloperidol Lactate (Haldol) 5 mg PO Q12 [facility] Last Admin: 06/28/18 09:36 Dose: 5 mg Magnesium Hydroxide (Milk Of Magnesia) 30 ml PO DAILY PRN PRN Reason: Constipation - Labs Labs: 06/28/18 05:25 06/28/18 05:25 - Respiratory Exam Respiratory Exam: NORMAL BREATHING PATTERN - Cardiovascular Exam Cardiovascular Exam: REGULAR RHYTHM - GI/Abdominal Exam GI & Abdominal Exam: Normal Bowel Sounds Assessment and Plan - Assessment and Plan (Free Text) Assessment: Fx R foot S/P ORIF POD #8 PT OOB Incentive spirometry Lovenox 40 mg Pain management Schizophrenia Cont Haldol and cogentin Smoker
[2018-06-29] MEDS: Haloperidol Lactate 2 mg/ml Liquid PO SCH ×2 (08:09→21:16)
[2018-06-29] MEDS: Enoxaparin 40 mg Syringe SC SCH (08:10)
--- NOTE | 2018-06-29 09:55 | CP.PCM.PN ---
Subjective - Date & Time of Evaluation Date of Evaluation: 06/29/18 Time of Evaluation: 08:30 - Subjective Subjective: NO CHEST PAIN OR SOB Objective - Vital Signs/Intake and Output Vital Signs (last 24 hours): Temp Pulse Resp BP Pulse Ox 96.3 F L 64 20 102/71 97 06/29/18 07:25 06/29/18 07:25 06/29/18 07:25 06/29/18 07:25 06/29/18 07:25 - Medications Medications: Current Medications Acetaminophen (Tylenol 325mg Tab) 650 mg PO Q6 PRN PRN Reason: Pain 4-10 Acetaminophen (Tylenol 325mg Tab) 325 mg PO Q6 PRN PRN Reason: Pain 1-3 Benztropine Mesylate (Cogentin) 1 mg PO Q12 [facility] Last Admin: 06/29/18 08:10 Dose: 1 mg Docusate Sodium (Colace) 100 mg PO BID [facility] Last Admin: 06/29/18 08:10 Dose: 100 mg Enoxaparin Sodium (Lovenox) 40 mg SC DAILY [facility]; Protocol Last Admin: 06/29/18 08:10 Dose: 40 mg Haloperidol Lactate (Haldol) 5 mg PO Q12 [facility] Last Admin: 06/29/18 08:09 Dose: 5 mg Magnesium Hydroxide (Milk Of Magnesia) 30 ml PO DAILY PRN PRN Reason: Constipation - Labs Labs: 06/28/18 05:25 06/28/18 05:25 - Respiratory Exam Respiratory Exam: Clear to Ausculation Bilateral - Cardiovascular Exam Cardiovascular Exam: REGULAR RHYTHM, +S1, +S2 Assessment and Plan - Assessment and Plan (Free Text) Assessment: S/P SURGERY FOR RIGHT FOOT FRACTURES SCHIZOPHRENIA Plan: CONTINUE REHAB
--- NOTE | 2018-06-29 18:53 | CP.PCM.PN ---
Subjective - Date & Time of Evaluation Date of Evaluation: 06/29/18 Time of Evaluation: 18:52 - Subjective Subjective: Patient seen in the room had some extra fatigue today pain is tolerable denies sob/cp right foot bandaged with no swelling noted in toes can wiggle continue current care Objective - Vital Signs/Intake and Output Vital Signs (last 24 hours): Temp Pulse Resp BP Pulse Ox 96.3 F L 102 H 20 102/71 97 06/29/18 07:25 06/29/18 09:32 06/29/18 07:25 06/29/18 07:25 06/29/18 07:25 - Medications Medications: Current Medications Acetaminophen (Tylenol 325mg Tab) 650 mg PO Q6 PRN PRN Reason: Pain 4-10 Acetaminophen (Tylenol 325mg Tab) 325 mg PO Q6 PRN PRN Reason: Pain 1-3 Benztropine Mesylate (Cogentin) 1 mg PO Q12 [facility] Last Admin: 06/29/18 08:10 Dose: 1 mg Docusate Sodium (Colace) 100 mg PO BID [facility] Last Admin: 06/29/18 16:45 Dose: 100 mg Enoxaparin Sodium (Lovenox) 40 mg SC DAILY [facility]; Protocol Haloperidol Lactate (Haldol) 5 mg PO Q12 [facility] Last Admin: 06/29/18 08:09 Dose: 5 mg Magnesium Hydroxide (Milk Of Magnesia) 30 ml PO DAILY PRN PRN Reason: Constipation - Labs Labs: 06/28/18 05:25 06/28/18 05:25
--- NOTE | 2018-06-29 21:15 | CP.PCM.PN ---
Subjective - Date & Time of Evaluation Date of Evaluation: 06/29/18 Time of Evaluation: 22:22 - Subjective Subjective: Above noted Objective - Vital Signs/Intake and Output Vital Signs (last 24 hours): Temp Pulse Resp BP Pulse Ox 97.3 F L 73 20 101/68 98 06/29/18 20:15 06/29/18 20:15 06/29/18 20:15 06/29/18 20:15 06/29/18 20:15 - Medications Medications: Current Medications Acetaminophen (Tylenol 325mg Tab) 650 mg PO Q6 PRN PRN Reason: Pain 4-10 Acetaminophen (Tylenol 325mg Tab) 325 mg PO Q6 PRN PRN Reason: Pain 1-3 Benztropine Mesylate (Cogentin) 1 mg PO Q12 [facility] Last Admin: 06/29/18 08:10 Dose: 1 mg Docusate Sodium (Colace) 100 mg PO BID [facility] Last Admin: 06/29/18 16:45 Dose: 100 mg Enoxaparin Sodium (Lovenox) 40 mg SC DAILY [facility]; Protocol Haloperidol Lactate (Haldol) 5 mg PO Q12 [facility] Last Admin: 06/29/18 08:09 Dose: 5 mg Magnesium Hydroxide (Milk Of Magnesia) 30 ml PO DAILY PRN PRN Reason: Constipation - Labs Labs: 06/28/18 05:25 06/28/18 05:25 - Respiratory Exam Respiratory Exam: NORMAL BREATHING PATTERN - Cardiovascular Exam Cardiovascular Exam: REGULAR RHYTHM - GI/Abdominal Exam GI & Abdominal Exam: Normal Bowel Sounds Assessment and Plan - Assessment and Plan (Free Text) Assessment: Fx R foot S/P ORIF POD #9 PT OOB Incentive spirometry Lovenox 40 mg Pain management Schizophrenia Cont Haldol and cogentin Smoker
[2018-06-30] MEDS: Haloperidol Lactate 2 mg/ml Liquid PO SCH ×2 (08:50→22:29)
[2018-06-30] MEDS: Enoxaparin 40 mg Syringe SC SCH (08:51)
--- NOTE | 2018-06-30 16:43 | CP.PCM.PN ---
Subjective - Date & Time of Evaluation Date of Evaluation: 06/30/18 Time of Evaluation: 16:42 - Subjective Subjective: Patient seen in the PT gym doing well NAD in good spirits no reported SOB/CP continue with current care Objective - Vital Signs/Intake and Output Vital Signs (last 24 hours): Temp Pulse Resp BP Pulse Ox 96.4 F L 73 22 101/75 98 06/30/18 07:29 06/30/18 07:29 06/30/18 07:29 06/30/18 07:29 06/30/18 07:29 - Medications Medications: Current Medications Acetaminophen (Tylenol 325mg Tab) 650 mg PO Q6 PRN PRN Reason: Pain 4-10 Acetaminophen (Tylenol 325mg Tab) 325 mg PO Q6 PRN PRN Reason: Pain 1-3 Benztropine Mesylate (Cogentin) 1 mg PO Q12 [facility] Last Admin: 06/30/18 08:49 Dose: 1 mg Docusate Sodium (Colace) 100 mg PO BID [facility] Last Admin: 06/30/18 16:33 Dose: 100 mg Enoxaparin Sodium (Lovenox) 40 mg SC DAILY [facility]; Protocol Last Admin: 06/30/18 08:51 Dose: 40 mg Haloperidol Lactate (Haldol) 5 mg PO Q12 [facility] Last Admin: 06/30/18 08:50 Dose: 5 mg Magnesium Hydroxide (Milk Of Magnesia) 30 ml PO DAILY PRN PRN Reason: Constipation - Labs Labs: 06/28/18 05:25 06/28/18 05:25
--- NOTE | 2018-06-30 17:54 | CP.PCM.PN ---
Subjective - Date & Time of Evaluation Date of Evaluation: 06/30/18 Time of Evaluation: 22:22 - Subjective Subjective: Doing well Above note appreciated Objective - Vital Signs/Intake and Output Vital Signs (last 24 hours): Temp Pulse Resp BP Pulse Ox 96.4 F L 73 22 101/75 98 06/30/18 07:29 06/30/18 07:29 06/30/18 07:29 06/30/18 07:29 06/30/18 07:29 - Medications Medications: Current Medications Acetaminophen (Tylenol 325mg Tab) 650 mg PO Q6 PRN PRN Reason: Pain 4-10 Acetaminophen (Tylenol 325mg Tab) 325 mg PO Q6 PRN PRN Reason: Pain 1-3 Benztropine Mesylate (Cogentin) 1 mg PO Q12 [facility] 234 BEDS AT [facility] Last Admin: 06/30/18 08:49 Dose: 1 mg Docusate Sodium (Colace) 100 mg PO BID [facility] 234 BEDS AT [facility] Last Admin: 06/30/18 16:33 Dose: 100 mg Enoxaparin Sodium (Lovenox) 40 mg SC DAILY [facility]CLUDE 234 BEDS AT THE [facility]; Protocol Last Admin: 06/30/18 08:51 Dose: 40 mg Haloperidol Lactate (Haldol) 5 mg PO Q12 [facility] 234 BEDS AT [facility] Last Admin: 06/30/18 08:50 Dose: 5 mg Magnesium Hydroxide (Milk Of Magnesia) 30 ml PO DAILY PRN PRN Reason: Constipation - Labs Labs: 06/28/18 05:25 06/28/18 05:25 - Respiratory Exam Respiratory Exam: NORMAL BREATHING PATTERN - Cardiovascular Exam Cardiovascular Exam: REGULAR RHYTHM - GI/Abdominal Exam GI & Abdominal Exam: Normal Bowel Sounds Assessment and Plan - Assessment and Plan (Free Text) Assessment: Fx R foot S/P ORIF POD #10 PT OOB Incentive spirometry Lovenox 40 mg Pain management Schizophrenia Cont Haldol and cogentin Smoker
[2018-07-01 07:55] LABS: MEAN CELL VOLUME 92.7 fl (80.0-94.0); MEAN CORPUSCULAR HEMOGLOBIN 32.4 pg (27.0-31.0); MEAN CORPUSCULAR HGB CONC 34.9 g/dL (33.0-37.0); RBC 4.01 Mil/uL (4.40-5.90); RED CELL DISTRIBUTION WIDTH 12.8 % (11.5-14.5); WHITE BLOOD COUNT 6.5 K/uL (4.8-10.8)
[2018-07-01 08:04] LABS: BLOOD UREA NITROGEN 19 mg/dl (9-20); CALCIUM 9.2 mg/dL (8.4-10.2); GFR NON-AFRICAN AMERICAN > 60
[2018-07-01] MEDS: Enoxaparin 40 mg Syringe SC SCH (08:38)
[2018-07-01] MEDS: Haloperidol Lactate 2 mg/ml Liquid PO SCH ×2 (08:39→21:08)
[2018-07-01 20:30] VITALS: RESP 20
--- NOTE | 2018-07-01 20:35 | CP.PCM.PN ---
Subjective - Date & Time of Evaluation Date of Evaluation: 07/01/18 Time of Evaluation: 22:22 - Subjective Subjective: Continues to do well Objective - Vital Signs/Intake and Output Vital Signs (last 24 hours): Temp Pulse Resp BP Pulse Ox 97.0 F L 74 20 109/70 97 07/01/18 20:00 07/01/18 20:00 07/01/18 20:00 07/01/18 20:00 07/01/18 20:00 - Medications Medications: Current Medications Acetaminophen (Tylenol 325mg Tab) 650 mg PO Q6 PRN PRN Reason: Pain 4-10 Acetaminophen (Tylenol 325mg Tab) 325 mg PO Q6 PRN PRN Reason: Pain 1-3 Benztropine Mesylate (Cogentin) 1 mg PO Q12 [facility] Last Admin: 07/01/18 08:39 Dose: 1 mg Docusate Sodium (Colace) 100 mg PO BID [facility] Last Admin: 07/01/18 16:58 Dose: 100 mg Enoxaparin Sodium (Lovenox) 40 mg SC DAILY [facility]; Protocol Last Admin: 07/01/18 08:38 Dose: 40 mg Haloperidol Lactate (Haldol) 5 mg PO Q12 [facility] Last Admin: 07/01/18 08:39 Dose: 5 mg Magnesium Hydroxide (Milk Of Magnesia) 30 ml PO DAILY PRN PRN Reason: Constipation - Labs Labs: 07/01/18 05:30 07/01/18 05:30 - Respiratory Exam Respiratory Exam: NORMAL BREATHING PATTERN - Cardiovascular Exam Cardiovascular Exam: REGULAR RHYTHM - GI/Abdominal Exam GI & Abdominal Exam: Normal Bowel Sounds Assessment and Plan - Assessment and Plan (Free Text) Assessment: Fx R foot S/P ORIF POD #11 PT OOB Incentive spirometry Lovenox 40 mg Pain management Schizophrenia Cont Haldol and cogentin Smoker
[2018-07-02 08:27] VITALS: O2SAT 98
[2018-07-02] MEDS: Enoxaparin 40 mg Syringe SC SCH (08:32)
[2018-07-02] MEDS: Haloperidol Lactate 2 mg/ml Liquid PO SCH ×2 (08:32→21:06)
--- NOTE | 2018-07-02 14:19 | CP.PCM.PN ---
Subjective - Date & Time of Evaluation Date of Evaluation: 07/02/18 Time of Evaluation: 13:00 - Subjective Subjective: NO CHEST PAIN OR SOB Objective - Vital Signs/Intake and Output Vital Signs (last 24 hours): Temp Pulse Resp BP Pulse Ox 98.6 F 92 H 20 126/87 98 07/02/18 08:25 07/02/18 08:25 07/02/18 08:25 07/02/18 08:25 07/02/18 08:25 - Medications Medications: Current Medications Acetaminophen (Tylenol 325mg Tab) 650 mg PO Q6 PRN PRN Reason: Pain 4-10 Acetaminophen (Tylenol 325mg Tab) 325 mg PO Q6 PRN PRN Reason: Pain 1-3 Benztropine Mesylate (Cogentin) 1 mg PO Q12 [facility] Last Admin: 07/02/18 08:32 Dose: 1 mg Docusate Sodium (Colace) 100 mg PO BID [facility] Last Admin: 07/02/18 08:32 Dose: 100 mg Enoxaparin Sodium (Lovenox) 40 mg SC DAILY [facility]; Protocol Last Admin: 07/02/18 08:32 Dose: 40 mg Haloperidol Lactate (Haldol) 5 mg PO Q12 [facility] Last Admin: 07/02/18 08:32 Dose: 5 mg Magnesium Hydroxide (Milk Of Magnesia) 30 ml PO DAILY PRN PRN Reason: Constipation - Labs Labs: 07/01/18 05:30 07/01/18 05:30 - Respiratory Exam Respiratory Exam: Clear to Ausculation Bilateral - Cardiovascular Exam Cardiovascular Exam: REGULAR RHYTHM, +S1, +S2 Assessment and Plan - Assessment and Plan (Free Text) Assessment: S/P SURGERY FOR RIGHT FOOT FRACTURES SCHIZOPHRENIA Plan: FOR PROBABLE DISCHARGE TO TCU TOMORROW
--- NOTE | 2018-07-02 14:30 | CP.PCM.PN ---
Subjective - Date & Time of Evaluation Date of Evaluation: 07/01/18 Time of Evaluation: 19:00 - Subjective Subjective: patient is doing well, no acute complaints of foot pain Objective - Vital Signs/Intake and Output Vital Signs (last 24 hours): Temp Pulse Resp BP Pulse Ox 98.6 F 92 H 20 126/87 98 07/02/18 08:25 07/02/18 08:25 07/02/18 08:25 07/02/18 08:25 07/02/18 08:25 - Medications Medications: Current Medications Acetaminophen (Tylenol 325mg Tab) 650 mg PO Q6 PRN PRN Reason: Pain 4-10 Acetaminophen (Tylenol 325mg Tab) 325 mg PO Q6 PRN PRN Reason: Pain 1-3 Benztropine Mesylate (Cogentin) 1 mg PO Q12 [facility] Last Admin: 07/02/18 08:32 Dose: 1 mg Docusate Sodium (Colace) 100 mg PO BID [facility] Last Admin: 07/02/18 08:32 Dose: 100 mg Enoxaparin Sodium (Lovenox) 40 mg SC DAILY [facility]; Protocol Last Admin: 07/02/18 08:32 Dose: 40 mg Haloperidol Lactate (Haldol) 5 mg PO Q12 [facility] Last Admin: 07/02/18 08:32 Dose: 5 mg Magnesium Hydroxide (Milk Of Magnesia) 30 ml PO DAILY PRN PRN Reason: Constipation - Labs Labs: 07/01/18 05:30 07/01/18 05:30 - Constitutional Appears: Well - Head Exam Head Exam: ATRAUMATIC, NORMAL INSPECTION, NORMOCEPHALIC - Eye Exam Eye Exam: EOMI, Normal appearance Pupil Exam: NORMAL ACCOMODATION, PERRL - ENT Exam ENT Exam: Mucous Membranes Moist, Normal Exam - Neck Exam Neck Exam: Normal Inspection - Respiratory Exam Respiratory Exam: Clear to Ausculation Bilateral, NORMAL BREATHING PATTERN - Cardiovascular Exam Cardiovascular Exam: REGULAR RHYTHM - GI/Abdominal Exam GI & Abdominal Exam: Normal Bowel Sounds - Rectal Exam Rectal Exam: NORMAL INSPECTION - Exam External exam: NORMAL EXTERNAL EXAM - Extremities Exam Extremities Exam: Normal Inspection - Back Exam Back Exam: NORMAL INSPECTION - Neurological Exam Neurological Exam: Alert Additional comments: leg weakness - Psychiatric Exam Psychiatric exam: Normal Affect, Normal Mood - Skin Skin Exam: Normal Color Assessment and Plan (1) S/P foot surgery, right Assessment & Plan: plan for physical, occupational therapy, advance weight bearing once cleared by physician, monitor pain, covering for Dr Doss Status: Acute
--- NOTE | 2018-07-02 17:42 | CP.PCM.PN ---
Subjective - Date & Time of Evaluation Date of Evaluation: 07/02/18 Time of Evaluation: 22:22 - Subjective Subjective: Doing well Objective - Vital Signs/Intake and Output Vital Signs (last 24 hours): Temp Pulse Resp BP Pulse Ox 98.6 F 92 H 20 126/87 98 07/02/18 08:25 07/02/18 08:25 07/02/18 08:25 07/02/18 08:25 07/02/18 08:25 - Medications Medications: Current Medications Acetaminophen (Tylenol 325mg Tab) 650 mg PO Q6 PRN PRN Reason: Pain 4-10 Acetaminophen (Tylenol 325mg Tab) 325 mg PO Q6 PRN PRN Reason: Pain 1-3 Benztropine Mesylate (Cogentin) 1 mg PO Q12 [facility] Last Admin: 07/02/18 08:32 Dose: 1 mg Docusate Sodium (Colace) 100 mg PO BID [facility] Last Admin: 07/02/18 17:01 Dose: 100 mg Enoxaparin Sodium (Lovenox) 40 mg SC DAILY [facility]; Protocol Last Admin: 07/02/18 08:32 Dose: 40 mg Haloperidol Lactate (Haldol) 5 mg PO Q12 [facility] Last Admin: 07/02/18 08:32 Dose: 5 mg Magnesium Hydroxide (Milk Of Magnesia) 30 ml PO DAILY PRN PRN Reason: Constipation - Labs Labs: 07/01/18 05:30 07/01/18 05:30 - Respiratory Exam Respiratory Exam: NORMAL BREATHING PATTERN - Cardiovascular Exam Cardiovascular Exam: REGULAR RHYTHM - GI/Abdominal Exam GI & Abdominal Exam: Normal Bowel Sounds Assessment and Plan - Assessment and Plan (Free Text) Assessment: Fx R foot S/P ORIF POD #12 PT OOB Incentive spirometry Lovenox 40 mg Pain management Schizophrenia Cont Haldol and cogentin Smoker
[2018-07-03 07:35] VITALS: BP 105/54; PULSE 63; TEMP 97.7
--- NOTE | 2018-07-03 08:21 | CP.PCM.PN ---
Subjective - Date & Time of Evaluation Date of Evaluation: 07/03/18 Time of Evaluation: 08:21 - Subjective Subjective: Podiatry Progress Note: Dr. Salvador 57 year old male POD#11 right lisfranc ORIF seen and evaluated at bedside. Patient resting comfortably and in NAD. Denies pain to his foot and leg and states that it is only sore at this time. Patient denies any other acute pedal complaints at this time. Patient being d/c today to TCU for further komal abilitation. Denies N/V/F/SOB/CP. Objective - Vital Signs/Intake and Output Vital Signs (last 24 hours): Temp Pulse Resp BP Pulse Ox 97.7 F 63 20 105/54 L 98 07/03/18 07:33 07/03/18 07:33 07/03/18 07:33 07/03/18 07:33 07/03/18 07:33 - Medications Medications: Current Medications Acetaminophen (Tylenol 325mg Tab) 650 mg PO Q6 PRN PRN Reason: Pain 4-10 Acetaminophen (Tylenol 325mg Tab) 325 mg PO Q6 PRN PRN Reason: Pain 1-3 Benztropine Mesylate (Cogentin) 1 mg PO Q12 [facility] Last Admin: 07/02/18 21:06 Dose: 1 mg Docusate Sodium (Colace) 100 mg PO BID [facility] Last Admin: 07/02/18 17:01 Dose: 100 mg Enoxaparin Sodium (Lovenox) 40 mg SC DAILY [facility]; Protocol Last Admin: 07/02/18 08:32 Dose: 40 mg Haloperidol Lactate (Haldol) 5 mg PO Q12 [facility] Last Admin: 07/02/18 21:06 Dose: 5 mg Magnesium Hydroxide (Milk Of Magnesia) 30 ml PO DAILY PRN PRN Reason: Constipation - Labs Labs: 07/01/18 05:30 07/01/18 05:30 - Constitutional Appears: Well, Non-toxic, No Acute Distress - Head Exam Head Exam: ATRAUMATIC, NORMOCEPHALIC - Extremities Exam Additional comments: Dressing C/D/I NVS intact Patient able to wiggle toes CFT <3 seconds - Neurological Exam Neurological Exam: Alert, Awake, Oriented x3 - Psychiatric Exam Psychiatric exam: Normal Affect, Normal Mood Assessment and Plan - Assessment and Plan (Free Text) Assessment: 57 year old male patient POD#11 right foot lisfranc ORIF Plan: Patient seen and evaluated Discussed in detail with Dr. Salvador Afebrile, absent leukocytosis Dressing and bivalved cast clean, dry, intact at this time Continue medications per medicine Cardiology on consult, Dr. Medina - fina appreciated Continue DVT prophylaxis with lovenox Will f/u with Dr. Salvador as outpatient, Will continue to follow while in house
[2018-07-03] MEDS: Haloperidol Lactate 2 mg/ml Liquid PO SCH (08:36)
[2018-07-03] MEDS: Enoxaparin 40 mg Syringe SC SCH (08:37)
--- NOTE | 2018-07-03 09:57 | CP.PCM.PN ---
Subjective - Date & Time of Evaluation Date of Evaluation: 07/03/18 Time of Evaluation: 09:40 - Subjective Subjective: NO CHEST PAIN OR SOB Objective - Vital Signs/Intake and Output Vital Signs (last 24 hours): Temp Pulse Resp BP Pulse Ox 97.7 F 63 20 105/54 L 98 07/03/18 07:33 07/03/18 07:33 07/03/18 07:33 07/03/18 07:33 07/03/18 07:33 - Medications Medications: Current Medications Acetaminophen (Tylenol 325mg Tab) 650 mg PO Q6 PRN PRN Reason: Pain 4-10 Acetaminophen (Tylenol 325mg Tab) 325 mg PO Q6 PRN PRN Reason: Pain 1-3 Benztropine Mesylate (Cogentin) 1 mg PO Q12 [facility] Last Admin: 07/03/18 08:36 Dose: 1 mg Docusate Sodium (Colace) 100 mg PO BID [facility] Last Admin: 07/03/18 08:36 Dose: 100 mg Haloperidol Lactate (Haldol) 5 mg PO Q12 [facility] Last Admin: 07/03/18 08:36 Dose: 5 mg Magnesium Hydroxide (Milk Of Magnesia) 30 ml PO DAILY PRN PRN Reason: Constipation - Labs Labs: 07/01/18 05:30 07/01/18 05:30 - Respiratory Exam Respiratory Exam: Clear to Ausculation Bilateral - Cardiovascular Exam Cardiovascular Exam: REGULAR RHYTHM, +S1, +S2 Assessment and Plan - Assessment and Plan (Free Text) Assessment: S/P SURGERY FOR RIGHT FOOT FRACTURES Plan: FOR DISCHARGE TO TCU
== END 2018-07-03 12:52 | DRG 561 ==
PROVIDERS: ADMIT Family Medicine Geriatric Medicine; ATTEND Family Medicine Geriatric Medicine
PROC: F08Z4FZ Home Management Treatment using Assistive, Adaptive, Supportive or Protective Equipment (ICD-10-PCS; principal; 2018-06-24)
PROC: F07Z9FZ Gait Training/Functional Ambulation Treatment using Assistive, Adaptive, Supportive or Protective Equipment (ICD-10-PCS; 2018-06-24)
DX: S92.311D Displaced fracture of first metatarsal bone, right foot, subsequent encounter for fracture with routine healing (principal); S92.321D Displaced fracture of second metatarsal bone, right foot, subsequent encounter for fracture with routine healing; S92.331D Displaced fracture of third metatarsal bone, right foot, subsequent encounter for fracture with routine healing; S92.341D Displaced fracture of fourth metatarsal bone, right foot, subsequent encounter for fracture with routine healing; W01.0XXD Fall on same level from slipping, tripping and stumbling without subsequent striking against object, subsequent encounter; F17.210 Nicotine dependence, cigarettes, uncomplicated; F20.9 Schizophrenia, unspecified; Z91.81 History of falling; R00.0 Tachycardia, unspecified; R06.02 Shortness of breath; R53.83 Other fatigue

== ENCOUNTER 2018-07-03 12:11 | Inpatient (IN) | payer OTHER ==
[2018-07-03 13:24] VITALS: BMI 34.5
[2018-07-03] MEDS ORDERED: Magnesium Hydroxide Susp 30 ml UD PO PRN (15:29)
--- NOTE | 2018-07-03 20:22 | CP.PCM.HP ---
History of Present Illness - History of Present Illness History of Present Illness: 57 yo transferred from Acute rehab Present on Admission - Present on Admission Any Indicators Present on Admission: No Past Patient History - Past Medical History & Family History Past Medical History?: Yes - Past Social History Smoking Status: Heavy Smoker > 10 Cigarettes Daily - CARDIAC Hx Cardiac Disorders: No - PULMONARY Hx Respiratory Disorders: No - NEUROLOGICAL Hx Neurological Disorder: No - HEENT Hx HEENT Problems: No - RENAL Hx Chronic Kidney Disease: No - ENDOCRINE/METABOLIC Hx Endocrine Disorders: No - HEMATOLOGICAL/ONCOLOGICAL Hx AIDS: No Hx Human Immunodeficiency Virus (HIV): No - INTEGUMENTARY Hx Dermatological Problems: No - MUSCULOSKELETAL/RHEUMATOLOGICAL Hx Falls: Yes Hx Fractures: Yes (current fx to metatarsals) - GASTROINTESTINAL Hx Gastrointestinal Disorders: No - GENITOURINARY/GYNECOLOGICAL Hx Genitourinary Disorders: No - PSYCHIATRIC Hx Schizophrenia: Yes Hx Substance Use: Yes - SURGICAL HISTORY Hx Surgeries: Yes Other/Comment: REMOVAL OF BENIGN TUMOR ON THE RIB AREA - ANESTHESIA Hx Anesthesia: Yes Hx Anesthesia Reactions: No Hx Malignant Hyperthermia: No Meds Allergies/Adverse Reactions: Allergies Allergy/AdvReac Type Severity Reaction Status Date / Time Penicillins Allergy RASH Verified 06/23/18 17:24 Physical Exam - Respiratory Exam Respiratory Exam: NORMAL BREATHING PATTERN - Cardiovascular Exam Cardiovascular Exam: REGULAR RHYTHM Results - Vital Signs Recent Vital Signs: Last Vital Signs Temp 98.5 F 07/03/18 19:30 Pulse 71 07/03/18 19:30 Resp 20 07/03/18 19:30 BP 117/80 07/03/18 19:30 Pulse Ox 97 07/03/18 19:30 Assessment & Plan - Assessment and Plan (Free Text) Assessment: Fx R foot S/P ORIF POD #13 PT OOB Incentive spirometry Lovenox 40 mg Pain management Schizophrenia Cont Haldol and cogentin Smoker - Date & Time Date: 07/03/18 Time: 22:22
[2018-07-03] MEDS: Haloperidol Lactate 2 mg/ml Liquid PO SCH (21:09)
[2018-07-04] MEDS: Enoxaparin 40 mg Syringe SC SCH (08:06)
[2018-07-04] MEDS: Haloperidol Lactate 2 mg/ml Liquid PO SCH ×2 (08:06→21:06)
--- NOTE | 2018-07-04 10:25 | CP.PCM.CON ---
History of Present Illness - History of Present Illness History of Present Illness: THE PATIENT IS A 57 YEAR OLD MALE WHO SLIPPED IN THE RAIN LAST MONTH AND SUSTAINED FRACTURES IN THE RIGHT FOOT. HE HAD SURGERY BY PODIATRY ON 06/23/18 AND WENT TO ACUTE REHAB. I WAS CALLED TO SEE HIM THERE HE HAD TACHYCARDIA DURING THERAPY. AN EKG SHOWED SINUS TACHYCARDIA IN THE 120'S THAT WAS THOUGHT TO BE FROM DECONDITIONING WITH EXERCISE. HIS HEART RATE QUICKLY SLOWED DOWN WITH REST AND HE NEVER HAD ANY SYMPTOMS. HE NOW WAS DISCHARGED FROM ACUTE REHAB AND WAS ADMITTED TO TCU HE DID NOT THINK HE WAS READY TO FUNCTION AT HOME. I WAS ASKED TO SEE AND FOLLOW HIM IN TCU. HE DENIES CHEST PAIN, PALPITATIONS OR SOB. HE HAS A HISTORY OF SCHIZOPHRENIA. Past Patient History - Past Medical History & Family History Past Medical History?: Yes - Past Social History Smoking Status: Heavy Smoker > 10 Cigarettes Daily - CARDIAC Hx Cardiac Disorders: No - PULMONARY Hx Respiratory Disorders: No - NEUROLOGICAL Hx Neurological Disorder: No - HEENT Hx HEENT Problems: No - RENAL Hx Chronic Kidney Disease: No - ENDOCRINE/METABOLIC Hx Endocrine Disorders: No - HEMATOLOGICAL/ONCOLOGICAL Hx AIDS: No Hx Human Immunodeficiency Virus (HIV): No - INTEGUMENTARY Hx Dermatological Problems: No - MUSCULOSKELETAL/RHEUMATOLOGICAL Hx Falls: Yes Hx Fractures: Yes (current fx to metatarsals) - GASTROINTESTINAL Hx Gastrointestinal Disorders: No - GENITOURINARY/GYNECOLOGICAL Hx Genitourinary Disorders: No - PSYCHIATRIC Hx Schizophrenia: Yes Hx Substance Use: Yes - SURGICAL HISTORY Hx Surgeries: Yes Other/Comment: REMOVAL OF BENIGN TUMOR ON THE RIB AREA - ANESTHESIA Hx Anesthesia: Yes Hx Anesthesia Reactions: No Hx Malignant Hyperthermia: No Meds Allergies/Adverse Reactions: Allergies Allergy/AdvReac Type Severity Reaction Status Date / Time Penicillins Allergy RASH Verified 06/23/18 17:24 - Medications Medications: Current Medications Acetaminophen (Tylenol 325mg Tab) 650 mg PO Q6 PRN PRN Reason: Pain, Mild (1-3) Benztropine Mesylate (Cogentin) 1 mg PO Q12 [facility] Last Admin: 07/04/18 08:06 Dose: 1 mg Docusate Sodium (Colace) 100 mg PO BID [facility] Last Admin: 07/04/18 08:06 Dose: 100 mg Enoxaparin Sodium (Lovenox) 40 mg SC DAILY [facility]; Protocol Last Admin: 07/04/18 08:06 Dose: 40 mg Haloperidol Lactate (Haldol) 5 mg PO Q12 [facility] Last Admin: 07/04/18 08:06 Dose: 5 mg Magnesium Hydroxide (Milk Of Magnesia) 30 ml PO DAILY PRN PRN Reason: Constipation Physical Exam - Respiratory Exam Respiratory Exam: Clear to Auscultation Bilateral - Cardiovascular Exam Cardiovascular Exam: REGULAR RHYTHM, +S1, +S2 Results - Vital Signs Recent Vital Signs: Last Vital Signs Temp 97.2 F L 07/04/18 08:06 Pulse 71 07/04/18 08:06 Resp 20 07/04/18 08:06 BP 112/79 07/04/18 08:06 Pulse Ox 98 07/04/18 08:06 Assessment & Plan - Assessment and Plan (Free Text) Assessment: S/P FOOT SURGERY FOR RIGHT FOOT FRACTURES SCHIZOPHRENIA EPISODE OF SINUS TACHYCARDIA WITH EXERCISE Plan: CONTINUE LOVENOX, HALDOL AND COGENTIN OK TO CONTINUE WITH ISABELLA IN TCU
--- NOTE | 2018-07-04 14:59 | CP.PCM.CON ---
History of Present Illness - History of Present Illness History of Present Illness: Dr Doss PMR consultation on Stuart Vega, born 1960, who had been admitted to [facility] acute inpatient rehabilitation following a right foot ORIF following a slip and fall with Lisfranc fracture and multiple 1-4 metatarsal fractures and cuboid/cuniform fractures. Short leg cast placed post op. He did ok but not confident and able to d/c home. Needed more work with bumping stairs and transfers. He has no numbness or tingling in the right LE. Can wiggle toes. History of schizophrenia. On disability. Hasn't needed a psych admission since 1988. Compliant and well controlled with meds. Remains motivated with therapies Review of Systems - Constitutional Constitutional: absent: Chills - EENT Eyes: absent: Blurred Vision, Change in Vision Ears: absent: Ear Discharge, Ear Pain Nose/Mouth/Throat: absent: Nasal Congestion - Cardiovascular Cardiovascular: absent: Chest Pain - Respiratory Respiratory: absent: Cough, Dyspnea - Gastrointestinal Gastrointestinal: absent: Belching, Constipation - Musculoskeletal Musculoskeletal: absent: Back Pain - Integumentary Integumentary: absent: Bleeding Lesions - Neurological Neurological: absent: Abnormal Hearing, Abnormal Movements, Radicular Pain - Psychiatric Psychiatric: Anxiety (mild baseline) Past Patient History - Past Medical History & Family History Past Medical History?: Yes - Past Social History Smoking Status: Heavy Smoker > 10 Cigarettes Daily Alcohol: None Drugs: Denies Home Situation {Lives}: Alone - CARDIAC Hx Cardiac Disorders: No - PULMONARY Hx Respiratory Disorders: No - NEUROLOGICAL Hx Neurological Disorder: No - HEENT Hx HEENT Problems: No - RENAL Hx Chronic Kidney Disease: No - ENDOCRINE/METABOLIC Hx Endocrine Disorders: No - HEMATOLOGICAL/ONCOLOGICAL Hx AIDS: No Hx Human Immunodeficiency Virus (HIV): No - INTEGUMENTARY Hx Dermatological Problems: No - MUSCULOSKELETAL/RHEUMATOLOGICAL Hx Falls: Yes Hx Fractures: Yes (current fx to metatarsals) - GASTROINTESTINAL Hx Gastrointestinal Disorders: No - GENITOURINARY/GYNECOLOGICAL Hx Genitourinary Disorders: No - PSYCHIATRIC Hx Schizophrenia: Yes Hx Substance Use: Yes - SURGICAL HISTORY Hx Surgeries: Yes Other/Comment: REMOVAL OF BENIGN TUMOR ON THE RIB AREA - ANESTHESIA Hx Anesthesia: Yes Hx Anesthesia Reactions: No Hx Malignant Hyperthermia: No Meds Allergies/Adverse Reactions: Allergies Allergy/AdvReac Type Severity Reaction Status Date / Time Penicillins Allergy RASH Verified 06/23/18 17:24 - Medications Medications: Current Medications Acetaminophen (Tylenol 325mg Tab) 650 mg PO Q6 PRN PRN Reason: Pain, Mild (1-3) Benztropine Mesylate (Cogentin) 1 mg PO Q12 [facility] Last Admin: 07/04/18 08:06 Dose: 1 mg Docusate Sodium (Colace) 100 mg PO BID [facility] Last Admin: 07/04/18 08:06 Dose: 100 mg Enoxaparin Sodium (Lovenox) 40 mg [place] DAILY [facility]; Protocol Last Admin: 07/04/18 08:06 Dose: 40 mg Haloperidol Lactate (Haldol) 5 mg PO Q12 [facility] Last Admin: 07/04/18 08:06 Dose: 5 mg Magnesium Hydroxide (Milk Of Magnesia) 30 ml PO DAILY PRN PRN Reason: Constipation Physical Exam - Constitutional Appears: Well, Non-toxic, No Acute Distress - Head Exam Head Exam: ATRAUMATIC, NORMAL INSPECTION, NORMOCEPHALIC - Eye Exam Eye Exam: EOMI - ENT Exam ENT Exam: Mucous Membranes Moist - Respiratory Exam Respiratory Exam: NORMAL BREATHING PATTERN - Cardiovascular Exam Cardiovascular Exam: REGULAR RHYTHM - GI/Abdominal Exam GI & Abdominal Exam: absent: Firm, Guarding - Extremities Exam Extremities exam: Negative for: normal inspection (Right cast and wrapping on right LE. Can wiggle toes) - Neurological Exam Neurological exam: Alert, CN II-XII Intact, Oriented x3 - Psychiatric Exam Psychiatric exam: Normal Affect, Normal Mood - Skin Skin Exam: Warm Results - Vital Signs Recent Vital Signs: Last Vital Signs Temp 97.2 F L 07/04/18 08:06 Pulse 71 07/04/18 08:06 Resp 20 07/04/18 08:06 BP 112/79 07/04/18 08:06 Pulse Ox 98 07/04/18 08:06 Assessment & Plan - Assessment and Plan (Free Text) Assessment: 57 year old male with right foot multiple fractures here for PT/OT and to facilitate a safe and appropriate discharge home pain is controlled No constipation
--- NOTE | 2018-07-04 20:47 | CP.PCM.PN ---
Subjective - Date & Time of Evaluation Date of Evaluation: 07/04/18 Time of Evaluation: 22:22 - Subjective Subjective: Above noted Objective - Vital Signs/Intake and Output Vital Signs (last 24 hours): Temp Pulse Resp BP Pulse Ox 98.1 F 78 20 111/77 96 07/04/18 20:34 07/04/18 20:34 07/04/18 20:34 07/04/18 20:34 07/04/18 20:34 - Medications Medications: Current Medications Acetaminophen (Tylenol 325mg Tab) 650 mg PO Q6 PRN PRN Reason: Pain, Mild (1-3) Benztropine Mesylate (Cogentin) 1 mg PO Q12 [facility] Last Admin: 07/04/18 08:06 Dose: 1 mg Docusate Sodium (Colace) 100 mg PO BID [facility] Last Admin: 07/04/18 16:21 Dose: 100 mg Enoxaparin Sodium (Lovenox) 40 mg [place] DAILY [facility]; Protocol Last Admin: 07/04/18 08:06 Dose: 40 mg Haloperidol Lactate (Haldol) 5 mg PO Q12 [facility] Last Admin: 07/04/18 08:06 Dose: 5 mg Magnesium Hydroxide (Milk Of Magnesia) 30 ml PO DAILY PRN PRN Reason: Constipation - Respiratory Exam Respiratory Exam: NORMAL BREATHING PATTERN - Cardiovascular Exam Cardiovascular Exam: REGULAR RHYTHM - GI/Abdominal Exam GI & Abdominal Exam: Normal Bowel Sounds Assessment and Plan - Assessment and Plan (Free Text) Assessment: Fx R foot S/P ORIF POD #14 PT OOB Incentive spirometry Lovenox 40 mg Pain management Schizophrenia Cont Haldol and cogentin Smoker
[2018-07-05] MEDS: Enoxaparin 40 mg Syringe SC SCH (08:55)
[2018-07-05] MEDS: Haloperidol Lactate 2 mg/ml Liquid PO SCH (08:56)
[2018-07-05 16:23] VITALS: RESP 20
[2018-07-05] MEDS: Hydrocortisone 2.5% (Rectal) CREAM PR SCH (16:34)
--- NOTE | 2018-07-05 17:20 | CP.PCM.PN ---
Subjective - Date & Time of Evaluation Date of Evaluation: 07/05/18 Time of Evaluation: 22:22 - Subjective Subjective: Above noted Objective - Vital Signs/Intake and Output Vital Signs (last 24 hours): Temp Pulse Resp BP Pulse Ox 97.5 F L 74 20 102/68 97 07/05/18 16:22 07/05/18 16:22 07/05/18 16:22 07/05/18 16:22 07/05/18 16:22 - Medications Medications: Current Medications Acetaminophen (Tylenol 325mg Tab) 650 mg PO Q6 PRN PRN Reason: Pain, Mild (1-3) Benztropine Mesylate (Cogentin) 1 mg PO Q12 [facility] Last Admin: 07/05/18 08:56 Dose: 1 mg Docusate Sodium (Colace) 100 mg PO BID [facility] Last Admin: 07/05/18 16:35 Dose: 100 mg Enoxaparin Sodium (Lovenox) 40 mg SC DAILY [facility]; Protocol Last Admin: 07/05/18 08:55 Dose: 40 mg Haloperidol (Haldol) 5 mg PO Q12 [facility] Hydrocortisone (Anusol-Hc) 1 applic [place] BID [facility] Last Admin: 07/05/18 16:34 Dose: 1 applic Magnesium Hydroxide (Milk Of Magnesia) 30 ml PO DAILY PRN PRN Reason: Constipation - Respiratory Exam Respiratory Exam: NORMAL BREATHING PATTERN - Cardiovascular Exam Cardiovascular Exam: REGULAR RHYTHM - GI/Abdominal Exam GI & Abdominal Exam: Normal Bowel Sounds Assessment and Plan - Assessment and Plan (Free Text) Plan: Fx R foot S/P ORIF POD #15 PT OOB Incentive spirometry Lovenox 40 mg Pain management Schizophrenia Cont Haldol and cogentin Smoker
--- NOTE | 2018-07-05 19:15 | CP.PCM.PN ---
Subjective - Date & Time of Evaluation Date of Evaluation: 07/05/18 Time of Evaluation: 19:14 - Subjective Subjective: Patient seen in the room continues to improve and becoming more confident no CP or fever continue PT/OT to help functional level Objective - Vital Signs/Intake and Output Vital Signs (last 24 hours): Temp Pulse Resp BP Pulse Ox 97.5 F L 74 20 102/68 97 07/05/18 16:22 07/05/18 16:22 07/05/18 16:22 07/05/18 16:22 07/05/18 16:22 - Medications Medications: Current Medications Acetaminophen (Tylenol 325mg Tab) 650 mg PO Q6 PRN PRN Reason: Pain, Mild (1-3) Benztropine Mesylate (Cogentin) 1 mg PO Q12 [facility] Last Admin: 07/05/18 08:56 Dose: 1 mg Docusate Sodium (Colace) 100 mg PO BID [facility] Last Admin: 07/05/18 16:35 Dose: 100 mg Enoxaparin Sodium (Lovenox) 40 mg [place] DAILY [facility]; Protocol Last Admin: 07/05/18 08:55 Dose: 40 mg Haloperidol (Haldol) 5 mg PO Q12 [facility] Hydrocortisone (Anusol-Hc) 1 applic [place] BID [facility] Last Admin: 07/05/18 16:34 Dose: 1 applic Magnesium Hydroxide (Milk Of Magnesia) 30 ml PO DAILY PRN PRN Reason: Constipation
--- NOTE | 2018-07-06 08:15 | CP.PCM.PN ---
Subjective - Date & Time of Evaluation Date of Evaluation: 07/06/18 Time of Evaluation: 08:15 - Subjective Subjective: Podiatry Progress Note: Dr. Salvador 57 year old male POD#13 R lisfrvenancio ORIF seen and evaluated at bedside in the TCU. Patient resting comfortably and in NAD. Denies pain to his foot and leg rating it a 1/10. Patient denies any other acute pedal complaints at this time. He states that he is regaining strength and is continuing with physical therapy. Patient states that he will be in TCU until Tuesday. Denies N/V/F/SOB/CP. Objective - Vital Signs/Intake and Output Vital Signs (last 24 hours): Temp Pulse Resp BP Pulse Ox 97.1 F L 75 20 100/68 95 07/05/18 20:09 07/05/18 20:09 07/05/18 20:09 07/05/18 20:09 07/05/18 20:09 - Medications Medications: Current Medications Acetaminophen (Tylenol 325mg Tab) 650 mg PO Q6 PRN PRN Reason: Pain, Mild (1-3) Benztropine Mesylate (Cogentin) 1 mg PO Q12 [facility] Last Admin: 07/05/18 21:33 Dose: 1 mg Docusate Sodium (Colace) 100 mg PO BID [facility] Last Admin: 07/05/18 16:35 Dose: 100 mg Enoxaparin Sodium (Lovenox) 40 mg [place] DAILY [facility]; Protocol Last Admin: 07/05/18 08:55 Dose: 40 mg Haloperidol (Haldol) 5 mg PO Q12 [facility] Last Admin: 07/05/18 21:32 Dose: 5 mg Hydrocortisone (Anusol-Hc) 1 applic [place] BID [facility] Last Admin: 07/05/18 16:34 Dose: 1 applic Magnesium Hydroxide (Milk Of Magnesia) 30 ml PO DAILY PRN PRN Reason: Constipation - Constitutional Appears: Well, Non-toxic, No Acute Distress - Head Exam Head Exam: ATRAUMATIC, NORMOCEPHALIC - Extremities Exam Additional comments: Dressing C/D/I NVS intact Patient able to wiggle toes, no pain CFT <3 seconds - Neurological Exam Neurological Exam: Alert, Awake, Oriented x3 - Psychiatric Exam Psychiatric exam: Normal Affect, Normal Mood Assessment and Plan - Assessment and Plan (Free Text) Assessment: 57 year old male patient POD#13 right foot lisfranc ORIF Plan: Patient seen and evaluated Discussed in detail with Dr. Salvador Dressing and bivalved cast clean, dry, intact at this time Plan for Tuesday: Cast to be taken down and reapplied, suture removal. Continue DVT prophylaxis with lovenox Will continue to follow patient while in house Will f/u with Dr. Salvador in office upon d/c
[2018-07-06] MEDS: Enoxaparin 40 mg Syringe SC SCH (08:41)
[2018-07-06] MEDS: Hydrocortisone 2.5% (Rectal) CREAM PR SCH ×3 (08:42→16:11)
--- NOTE | 2018-07-06 09:40 | CP.PCM.PN ---
Subjective - Date & Time of Evaluation Date of Evaluation: 07/06/18 Time of Evaluation: 08:30 - Subjective Subjective: NO CHEST PAIN OR SOB STATES HE IS DOING WELL AT REHAB AND LEARNING TO WALK WITH CRUTCHES Objective - Vital Signs/Intake and Output Vital Signs (last 24 hours): Temp Pulse Resp BP Pulse Ox 97.8 F 89 20 126/79 98 07/06/18 08:26 07/06/18 08:26 07/06/18 08:26 07/06/18 08:26 07/06/18 08:26 - Medications Medications: Current Medications Acetaminophen (Tylenol 325mg Tab) 650 mg PO Q6 PRN PRN Reason: Pain, Mild (1-3) Benztropine Mesylate (Cogentin) 1 mg PO Q12 [facility] Last Admin: 07/06/18 08:41 Dose: 1 mg Docusate Sodium (Colace) 100 mg PO BID [facility] Last Admin: 07/06/18 08:41 Dose: 100 mg Enoxaparin Sodium (Lovenox) 40 mg SC DAILY [facility]; Protocol Last Admin: 07/06/18 08:41 Dose: 40 mg Haloperidol (Haldol) 5 mg PO Q12 [facility] Last Admin: 07/06/18 08:42 Dose: 5 mg Hydrocortisone (Anusol-Hc) 1 applic [place] BID [facility] Last Admin: 07/06/18 08:42 Dose: 1 applic Magnesium Hydroxide (Milk Of Magnesia) 30 ml PO DAILY PRN PRN Reason: Constipation - Respiratory Exam Respiratory Exam: Clear to Ausculation Bilateral - Cardiovascular Exam Cardiovascular Exam: REGULAR RHYTHM, +S1, +S2 - Extremities Exam Additional comments: NO LE EDEMA Assessment and Plan - Assessment and Plan (Free Text) Assessment: S/P RIGHT FOOT FRACTURE SURGERY SCHIZOPHRENIA Plan: CONTINUE PRESENT [place] CONTINUE REHAB
--- NOTE | 2018-07-06 21:00 | CP.PCM.PN ---
Subjective - Date & Time of Evaluation Date of Evaluation: 07/06/18 Time of Evaluation: 22:22 - Subjective Subjective: Above noted Objective - Vital Signs/Intake and Output Vital Signs (last 24 hours): Temp Pulse Resp BP Pulse Ox 98.3 F 77 20 101/68 97 07/06/18 19:59 07/06/18 19:59 07/06/18 19:59 07/06/18 19:59 07/06/18 19:59 - Medications Medications: Current Medications Acetaminophen (Tylenol 325mg Tab) 650 mg PO Q6 PRN PRN Reason: Pain, Mild (1-3) Benztropine Mesylate (Cogentin) 1 mg PO Q12 [facility] Last Admin: 07/06/18 08:41 Dose: 1 mg Docusate Sodium (Colace) 100 mg PO BID [facility] Last Admin: 07/06/18 16:12 Dose: 100 mg Enoxaparin Sodium (Lovenox) 40 mg SC DAILY [facility]; Protocol Last Admin: 07/06/18 08:41 Dose: 40 mg Haloperidol (Haldol) 5 mg PO Q12 [facility] Last Admin: 07/06/18 08:42 Dose: 5 mg Hydrocortisone (Anusol-Hc) 1 applic [place] BID [facility] Last Admin: 07/06/18 16:11 Dose: Not Given Magnesium Hydroxide (Milk Of Magnesia) 30 ml PO DAILY PRN PRN Reason: Constipation - Respiratory Exam Respiratory Exam: NORMAL BREATHING PATTERN - Cardiovascular Exam Cardiovascular Exam: REGULAR RHYTHM - GI/Abdominal Exam GI & Abdominal Exam: Normal Bowel Sounds Assessment and Plan - Assessment and Plan (Free Text) Assessment: Fx R foot S/P ORIF POD #16 PT OOB Incentive spirometry Lovenox 40 mg Pain management Schizophrenia Cont Haldol and cogentin Smoker
[2018-07-07] MEDS: Hydrocortisone 2.5% (Rectal) CREAM PR SCH ×2 (08:21→16:30)
[2018-07-07] MEDS: Enoxaparin 40 mg Syringe SC SCH (08:22)
--- NOTE | 2018-07-07 15:24 | CP.PCM.PN ---
Subjective - Date & Time of Evaluation Date of Evaluation: 07/07/18 Time of Evaluation: 15:23 - Subjective Subjective: Patient seen in the room doing well can do a supine leg raise without pain can wiggle toes denies sob/cp continue current care hopeful d/c tuesday or tuesday next week Objective - Vital Signs/Intake and Output Vital Signs (last 24 hours): Temp Pulse Resp BP Pulse Ox 97.3 F L 69 20 109/78 98 07/07/18 11:40 07/07/18 11:40 07/07/18 11:40 07/07/18 11:40 07/07/18 11:40 - Medications Medications: Current Medications Acetaminophen (Tylenol 325mg Tab) 650 mg PO Q6 PRN PRN Reason: Pain, Mild (1-3) Benztropine Mesylate (Cogentin) 1 mg PO Q12 [facility] Last Admin: 07/07/18 08:21 Dose: 1 mg Docusate Sodium (Colace) 100 mg PO BID [facility] Last Admin: 07/07/18 08:22 Dose: 100 mg Enoxaparin Sodium (Lovenox) 40 mg SC DAILY [facility]; Protocol Last Admin: 07/07/18 08:22 Dose: 40 mg Haloperidol (Haldol) 5 mg PO Q12 [facility] Last Admin: 07/07/18 08:22 Dose: 5 mg Hydrocortisone (Anusol-Hc) 1 applic [place] BID [facility] Last Admin: 07/07/18 08:21 Dose: Not Given Magnesium Hydroxide (Milk Of Magnesia) 30 ml PO DAILY PRN PRN Reason: Constipation
--- NOTE | 2018-07-07 17:38 | CP.PCM.PN ---
Subjective - Date & Time of Evaluation Date of Evaluation: 07/07/18 Time of Evaluation: 22:22 - Subjective Subjective: Physiatry note appreciated Objective - Vital Signs/Intake and Output Vital Signs (last 24 hours): Temp Pulse Resp BP Pulse Ox 97.5 F L 86 20 113/74 95 07/07/18 15:38 07/07/18 15:38 07/07/18 15:38 07/07/18 15:38 07/07/18 15:38 - Medications Medications: Current Medications Acetaminophen (Tylenol 325mg Tab) 650 mg PO Q6 PRN PRN Reason: Pain, Mild (1-3) Benztropine Mesylate (Cogentin) 1 mg PO Q12 [facility] Last Admin: 07/07/18 08:21 Dose: 1 mg Docusate Sodium (Colace) 100 mg PO BID [facility] Last Admin: 07/07/18 16:30 Dose: 100 mg Enoxaparin Sodium (Lovenox) 40 mg SC DAILY [facility]; Protocol Last Admin: 07/07/18 08:22 Dose: 40 mg Haloperidol (Haldol) 5 mg PO Q12 [facility] Last Admin: 07/07/18 08:22 Dose: 5 mg Hydrocortisone (Anusol-Hc) 1 applic [place] BID [facility] Last Admin: 07/07/18 16:30 Dose: Not Given Magnesium Hydroxide (Milk Of Magnesia) 30 ml PO DAILY PRN PRN Reason: Constipation - Respiratory Exam Respiratory Exam: NORMAL BREATHING PATTERN - Cardiovascular Exam Cardiovascular Exam: Tachycardia, REGULAR RHYTHM - GI/Abdominal Exam GI & Abdominal Exam: Normal Bowel Sounds Assessment and Plan - Assessment and Plan (Free Text) Assessment: Fx R foot S/P ORIF POD #17 PT OOB Incentive spirometry Lovenox 40 mg Pain management Schizophrenia Cont Haldol and cogentin Smoker
--- NOTE | 2018-07-08 07:43 | CP.PCM.PN ---
Subjective - Date & Time of Evaluation Date of Evaluation: 07/08/18 Time of Evaluation: 22:22 - Subjective Subjective: Above noted Objective - Vital Signs/Intake and Output Vital Signs (last 24 hours): Temp Pulse Resp BP Pulse Ox 98.4 F 70 20 105/69 97 07/07/18 19:39 07/07/18 19:39 07/07/18 19:39 07/07/18 19:39 07/07/18 19:39 - Medications Medications: Current Medications Acetaminophen (Tylenol 325mg Tab) 650 mg PO Q6 PRN PRN Reason: Pain, Mild (1-3) Benztropine Mesylate (Cogentin) 1 mg PO Q12 [facility] Last Admin: 07/07/18 20:50 Dose: 1 mg Docusate Sodium (Colace) 100 mg PO BID [facility] Last Admin: 07/07/18 16:30 Dose: 100 mg Enoxaparin Sodium (Lovenox) 40 mg SC DAILY [facility]; Protocol Last Admin: 07/07/18 08:22 Dose: 40 mg Haloperidol (Haldol) 5 mg PO Q12 [facility] Last Admin: 07/07/18 20:50 Dose: 5 mg Hydrocortisone (Anusol-Hc) 1 applic [place] BID [facility] Last Admin: 07/07/18 16:30 Dose: Not Given Magnesium Hydroxide (Milk Of Magnesia) 30 ml PO DAILY PRN PRN Reason: Constipation - Respiratory Exam Respiratory Exam: NORMAL BREATHING PATTERN - Cardiovascular Exam Cardiovascular Exam: REGULAR RHYTHM - GI/Abdominal Exam GI & Abdominal Exam: Normal Bowel Sounds Assessment and Plan - Assessment and Plan (Free Text) Assessment: Fx R foot S/P ORIF POD #18 PT OOB Incentive spirometry Lovenox 40 mg Pain management Schizophrenia Cont Haldol and cogentin Smoker
[2018-07-08] MEDS: Hydrocortisone 2.5% (Rectal) CREAM PR SCH ×2 (09:11→16:31)
[2018-07-08] MEDS: Enoxaparin 40 mg Syringe SC SCH (09:13)
--- NOTE | 2018-07-08 12:46 | CP.PCM.PN ---
Subjective - Date & Time of Evaluation Date of Evaluation: 07/08/18 Time of Evaluation: 15:17 - Subjective Subjective: Podiatry Progress Note: Dr. Salvador 57 year old male POD#16 R lisfranc ORIF seen and evaluated at bedside in the TCU. Patient resting comfortably and in NAD. Denies pain to his foot and leg rating it a 1/10. He continues to participate in physical therapy as instructed. Denies N/V/F/SOB/CP. Objective - Vital Signs/Intake and Output Vital Signs (last 24 hours): Temp Pulse Resp BP Pulse Ox 98.2 F 61 20 102/67 97 07/08/18 07:57 07/08/18 07:57 07/08/18 07:57 07/08/18 07:57 07/08/18 07:57 - Medications Medications: Current Medications Acetaminophen (Tylenol 325mg Tab) 650 mg PO Q6 PRN PRN Reason: Pain, Mild (1-3) Benztropine Mesylate (Cogentin) 1 mg PO Q12 [facility] Last Admin: 07/08/18 09:12 Dose: 1 mg Docusate Sodium (Colace) 100 mg PO BID [facility] Last Admin: 07/08/18 09:12 Dose: 100 mg Enoxaparin Sodium (Lovenox) 40 mg [place] DAILY [facility]; Protocol Last Admin: 07/08/18 09:13 Dose: 40 mg Haloperidol (Haldol) 5 mg PO Q12 [facility] Last Admin: 07/08/18 09:12 Dose: 5 mg Hydrocortisone (Anusol-Hc) 1 applic [place] BID [facility] Last Admin: 07/08/18 09:11 Dose: Not Given Magnesium Hydroxide (Milk Of Magnesia) 30 ml PO DAILY PRN PRN Reason: Constipation - Constitutional Appears: Well, Non-toxic, No Acute Distress - Head Exam Head Exam: ATRAUMATIC, NORMOCEPHALIC - Extremities Exam Additional comments: RLE focused exam: Vascular: DP/PT palpable, TG warm to warm, CFT < 3 seconds, +1 edema appreciated to the R dorsal midfoot Ortho: Tenderness to palpation of the dorsal aspect of R foot, no pain with calf compression, AROM and PROM WNL of the RLE Neuro: Gross and protective sensation intact Derm: Multiple surgical sites appreciated to the dorsal aspect of the R foot. Mild dehiscence noted to dorsal surgical site with granular wound bed, showing evidence of skin healing at this time, no purulence, no erythema, no cellulitis, no clinical signs of infection. Remainder of incision sites skin well approximated and well coapted at this time. No drainage nor evidence of dehiscence appreciated. - Neurological Exam Neurological Exam: Alert, Awake, Oriented x3 - Psychiatric Exam Psychiatric exam: Normal Affect, Normal Mood Assessment and Plan - Assessment and Plan (Free Text) Assessment: 57 year old male patient POD#16 right foot lisfranc ORIF Plan: Patient seen and evaluated with attending Dr. Salvador Cast removed from R lower extremity, sutures removed from surgical site. Surgical site dressed with betadine and DSD New cast applied to the R lower extremity Instructed patient to remain NWB to the RLE Continue with physical therapy Continue DVT prophylaxis with lovenox Will continue to follow patient while in house Will f/u with Dr. Salvador in office upon d/c
[2018-07-08] MEDS ORDERED: Povidone Iodine Topical 10% Sol ONE (13:03)
--- NOTE | 2018-07-08 13:19 | CP.PCM.PN ---
Subjective - Date & Time of Evaluation Date of Evaluation: 07/08/18 Time of Evaluation: 10:45 - Subjective Subjective: NO NEW COMPLAINTS DOING WELL AT REHAB WALKING WITH CRUTCHES IN [place]ALL[place] TO GYM AND USING STAIRS Objective - Vital Signs/Intake and Output Vital Signs (last 24 hours): Temp Pulse Resp BP Pulse Ox 98.2 F 61 20 102/67 97 07/08/18 07:57 07/08/18 07:57 07/08/18 07:57 07/08/18 07:57 07/08/18 07:57 - Medications Medications: Current Medications Acetaminophen (Tylenol 325mg Tab) 650 mg PO Q6 PRN PRN Reason: Pain, Mild (1-3) Benztropine Mesylate (Cogentin) 1 mg PO Q12 [facility] Last Admin: 07/08/18 09:12 Dose: 1 mg Docusate Sodium (Colace) 100 mg PO BID [facility] Last Admin: 07/08/18 09:12 Dose: 100 mg Enoxaparin Sodium (Lovenox) 40 mg SC DAILY [facility]; Protocol Last Admin: 07/08/18 09:13 Dose: 40 mg Haloperidol (Haldol) 5 mg PO Q12 [facility] Last Admin: 07/08/18 09:12 Dose: 5 mg Hydrocortisone (Anusol-Hc) 1 applic [place] BID [facility] Last Admin: 07/08/18 09:11 Dose: Not Given Magnesium Hydroxide (Milk Of Magnesia) 30 ml PO DAILY PRN PRN Reason: Constipation - Respiratory Exam Respiratory Exam: Clear to Ausculation Bilateral - Cardiovascular Exam Cardiovascular Exam: REGULAR RHYTHM, +S1, +S2 Assessment and Plan - Assessment and Plan (Free Text) Assessment: RIGHT FOOT SURGERY FOR FRACTURES SCHIZOPHRENIA Plan: CONTINUE PRESENT [place] CONTINUE REHAB
[2018-07-09] MEDS: Hydrocortisone 2.5% (Rectal) CREAM PR SCH ×2 (08:39→16:49)
[2018-07-09] MEDS: Enoxaparin 40 mg Syringe SC SCH (08:39)
--- NOTE | 2018-07-09 23:19 | CP.PCM.PN ---
Subjective - Date & Time of Evaluation Date of Evaluation: 07/09/18 Time of Evaluation: 22:22 - Subjective Subjective: Continues to do well Objective - Vital Signs/Intake and Output Vital Signs (last 24 hours): Temp Pulse Resp BP Pulse Ox 97.5 F L 69 20 105/73 97 07/09/18 21:19 07/09/18 21:19 07/09/18 21:19 07/09/18 21:19 07/09/18 21:19 - Medications Medications: Current Medications Acetaminophen (Tylenol 325mg Tab) 650 mg PO Q6 PRN PRN Reason: Pain, Mild (1-3) Benztropine Mesylate (Cogentin) 1 mg PO Q12 [facility] Last Admin: 07/09/18 22:33 Dose: 1 mg Docusate Sodium (Colace) 100 mg PO BID [facility] Last Admin: 07/09/18 16:52 Dose: 100 mg Enoxaparin Sodium (Lovenox) 40 mg SC DAILY [facility]; Protocol Haloperidol (Haldol) 5 mg PO Q12 [facility] Last Admin: 07/09/18 22:33 Dose: 5 mg Hydrocortisone (Anusol-Hc) 1 applic [place] BID [facility] Last Admin: 07/09/18 16:49 Dose: Not Given Magnesium Hydroxide (Milk Of Magnesia) 30 ml PO DAILY PRN PRN Reason: Constipation - Respiratory Exam Respiratory Exam: NORMAL BREATHING PATTERN - Cardiovascular Exam Cardiovascular Exam: REGULAR RHYTHM - GI/Abdominal Exam GI & Abdominal Exam: Normal Bowel Sounds Assessment and Plan - Assessment and Plan (Free Text) Assessment: Fx R foot S/P ORIF POD #19 PT OOB Incentive spirometry Lovenox 40 mg Pain management Schizophrenia Cont Haldol and cogentin Smoker
[2018-07-10 06:48] LABS: HEMOGLOBIN 14.1 g/dL (12.0-18.0); MEAN CELL VOLUME 92.3 fl (80.0-94.0); MEAN CORPUSCULAR HEMOGLOBIN 31.6 pg (27.0-31.0); MEAN CORPUSCULAR HGB CONC 34.2 g/dL (33.0-37.0); RBC 4.45 Mil/uL (4.40-5.90); RED CELL DISTRIBUTION WIDTH 13.1 % (11.5-14.5); WHITE BLOOD COUNT 6.7 K/uL (4.8-10.8)
[2018-07-10 07:33] LABS: BLOOD UREA NITROGEN 14 mg/dl (9-20); CALCIUM 9.4 mg/dL (8.4-10.2); GFR NON-AFRICAN AMERICAN > 60
[2018-07-10] MEDS: Hydrocortisone 2.5% (Rectal) CREAM PR SCH ×2 (09:01→16:50)
--- NOTE | 2018-07-10 09:10 | CP.PCM.PN ---
Subjective - Date & Time of Evaluation Date of Evaluation: 07/10/18 Time of Evaluation: 09:08 - Subjective Subjective: Podiatry Progress Note: Dr. Salvador 57 year old male POD#18 R lisfranc ORIF seen and evaluated at bedside in the TCU. Patient resting comfortably and in NAD. He denies any pain to this R lower extremity. Denies any acute events overnight. He continues to participate in physical therapy as instructed. Denies N/V/F/SOB/CP. Objective - Vital Signs/Intake and Output Vital Signs (last 24 hours): Temp Pulse Resp BP Pulse Ox 97.5 F L 68 20 109/70 97 07/10/18 08:31 07/10/18 08:31 07/10/18 08:31 07/10/18 08:31 07/10/18 08:31 - Medications Medications: Current Medications Acetaminophen (Tylenol 325mg Tab) 650 mg PO Q6 PRN PRN Reason: Pain, Mild (1-3) Benztropine Mesylate (Cogentin) 1 mg PO Q12 [facility] Last Admin: 07/10/18 09:01 Dose: 1 mg Docusate Sodium (Colace) 100 mg PO BID [facility] Last Admin: 07/10/18 09:00 Dose: 100 mg Enoxaparin Sodium (Lovenox) 40 mg SC DAILY [facility]; Protocol Haloperidol (Haldol) 5 mg PO Q12 [facility] Last Admin: 07/10/18 09:00 Dose: 5 mg Hydrocortisone (Anusol-Hc) 1 applic [place] BID [facility] Last Admin: 07/10/18 09:01 Dose: 1 applic Magnesium Hydroxide (Milk Of Magnesia) 30 ml PO DAILY PRN PRN Reason: Constipation - Labs Labs: 07/10/18 06:32 07/10/18 06:32 - Constitutional Appears: Non-toxic, No Acute Distress - Head Exam Head Exam: ATRAUMATIC, NORMOCEPHALIC - Extremities Exam Additional comments: Right lower extremity cast clean, dry, intact Patient able to wiggle toes NVS intact CFT < 3seconds - Neurological Exam Neurological Exam: Alert, Awake, Oriented x3 - Psychiatric Exam Psychiatric exam: Normal Affect, Normal Mood Assessment and Plan - Assessment and Plan (Free Text) Assessment: 57 year old male patient POD#18 right foot lisfranc ORIF Plan: Patient seen and evaluated Discussed with attending Dr. Salvador Patient to leave cast C/D/I Instructed patient to remain NWB to the RLE Continue with physical therapy Continue DVT prophylaxis with lovenox Will continue to follow patient while in house Will f/u with Dr. Salvador in office upon d/c
--- NOTE | 2018-07-10 10:49 | CP.PCM.PN ---
Subjective - Date & Time of Evaluation Date of Evaluation: 07/10/18 Time of Evaluation: 09:45 - Subjective Subjective: NO COMPLAINTS Objective - Vital Signs/Intake and Output Vital Signs (last 24 hours): Temp Pulse Resp BP Pulse Ox 97.5 F L 68 20 109/70 97 07/10/18 08:31 07/10/18 08:31 07/10/18 08:31 07/10/18 08:31 07/10/18 08:31 - Medications Medications: Current Medications Acetaminophen (Tylenol 325mg Tab) 650 mg PO Q6 PRN PRN Reason: Pain, Mild (1-3) Benztropine Mesylate (Cogentin) 1 mg PO Q12 [facility] Last Admin: 07/10/18 09:01 Dose: 1 mg Docusate Sodium (Colace) 100 mg PO BID [facility] Last Admin: 07/10/18 09:00 Dose: 100 mg Enoxaparin Sodium (Lovenox) 40 mg SC DAILY [facility]; Protocol Haloperidol (Haldol) 5 mg PO Q12 [facility] Last Admin: 07/10/18 09:00 Dose: 5 mg Hydrocortisone (Anusol-Hc) 1 applic [place] BID [facility] Last Admin: 07/10/18 09:01 Dose: 1 applic Magnesium Hydroxide (Milk Of Magnesia) 30 ml PO DAILY PRN PRN Reason: Constipation - Labs Labs: 07/10/18 06:32 07/10/18 06:32 - Respiratory Exam Respiratory Exam: Clear to Ausculation Bilateral - Cardiovascular Exam Cardiovascular Exam: REGULAR RHYTHM, +S1, +S2 Assessment and Plan - Assessment and Plan (Free Text) Assessment: S/P RIGHT FOOT SURGERY FOR FRACTURES Plan: CONTINUE [facility]
[2018-07-10] MEDS: Enoxaparin 40 mg Syringe SC SCH (16:56)
--- NOTE | 2018-07-10 18:06 | CP.PCM.PN ---
Subjective - Date & Time of Evaluation Date of Evaluation: 07/10/18 Time of Evaluation: 18:05 - Subjective Subjective: Patient seen in the room continues to get more confident pain is controlled denies sob/cp moving bowels ok set for d/c home this week Objective - Vital Signs/Intake and Output Vital Signs (last 24 hours): Temp Pulse Resp BP Pulse Ox 97.5 F L 89 20 110/77 96 07/10/18 16:41 07/10/18 16:41 07/10/18 16:41 07/10/18 16:41 07/10/18 16:41 - Medications Medications: Current Medications Acetaminophen (Tylenol 325mg Tab) 650 mg PO Q6 PRN PRN Reason: Pain, Mild (1-3) Benztropine Mesylate (Cogentin) 1 mg PO Q12 [facility] Last Admin: 07/10/18 09:01 Dose: 1 mg Docusate Sodium (Colace) 100 mg PO BID [facility] Last Admin: 07/10/18 16:50 Dose: 100 mg Enoxaparin Sodium (Lovenox) 40 mg SC DAILY [facility]; Protocol Last Admin: 07/10/18 16:56 Dose: 40 mg Haloperidol (Haldol) 5 mg PO Q12 [facility] Last Admin: 07/10/18 09:00 Dose: 5 mg Hydrocortisone (Anusol-Hc) 1 applic [place] BID [facility] Last Admin: 07/10/18 16:50 Dose: 1 applic Magnesium Hydroxide (Milk Of Magnesia) 30 ml PO DAILY PRN PRN Reason: Constipation - Labs Labs: 07/10/18 06:32 07/10/18 06:32
--- NOTE | 2018-07-10 18:46 | CP.PCM.PN ---
Subjective - Date & Time of Evaluation Date of Evaluation: 07/10/18 Time of Evaluation: 22:22 - Subjective Subjective: Doing well Above note appreciated Objective - Vital Signs/Intake and Output Vital Signs (last 24 hours): Temp Pulse Resp BP Pulse Ox 97.5 F L 89 20 110/77 96 07/10/18 16:41 07/10/18 16:41 07/10/18 16:41 07/10/18 16:41 07/10/18 16:41 - Medications Medications: Current Medications Acetaminophen (Tylenol 325mg Tab) 650 mg PO Q6 PRN PRN Reason: Pain, Mild (1-3) Benztropine Mesylate (Cogentin) 1 mg PO Q12 [facility] Last Admin: 07/10/18 09:01 Dose: 1 mg Docusate Sodium (Colace) 100 mg PO BID [facility] Last Admin: 07/10/18 16:50 Dose: 100 mg Enoxaparin Sodium (Lovenox) 40 mg SC DAILY [facility]; Protocol Last Admin: 07/10/18 16:56 Dose: 40 mg Haloperidol (Haldol) 5 mg PO Q12 [facility] Last Admin: 07/10/18 09:00 Dose: 5 mg Hydrocortisone (Anusol-Hc) 1 applic [place] BID [facility] Last Admin: 07/10/18 16:50 Dose: 1 applic Magnesium Hydroxide (Milk Of Magnesia) 30 ml PO DAILY PRN PRN Reason: Constipation - Labs Labs: 07/10/18 06:32 07/10/18 06:32 - Respiratory Exam Respiratory Exam: NORMAL BREATHING PATTERN - Cardiovascular Exam Cardiovascular Exam: REGULAR RHYTHM - GI/Abdominal Exam GI & Abdominal Exam: Normal Bowel Sounds Assessment and Plan - Assessment and Plan (Free Text) Assessment: Fx R foot S/P ORIF POD #20 PT OOB Incentive spirometry Lovenox 40 mg Pain management Schizophrenia Cont Haldol and cogentin Smoker
[2018-07-11] MEDS: Hydrocortisone 2.5% (Rectal) CREAM PR SCH ×2 (08:09→16:26)
[2018-07-11] MEDS: Enoxaparin 40 mg Syringe SC SCH (08:11)
--- NOTE | 2018-07-11 20:14 | CP.PCM.PN ---
Subjective - Date & Time of Evaluation Date of Evaluation: 07/11/18 Time of Evaluation: 22:22 - Subjective Subjective: Above noted Objective - Vital Signs/Intake and Output Vital Signs (last 24 hours): Temp Pulse Resp BP Pulse Ox 98.7 F 67 20 103/68 97 07/11/18 20:08 07/11/18 20:08 07/11/18 20:08 07/11/18 20:08 07/11/18 20:08 - Medications Medications: Current Medications Acetaminophen (Tylenol 325mg Tab) 650 mg PO Q6 PRN PRN Reason: Pain, Mild (1-3) Benztropine Mesylate (Cogentin) 1 mg PO Q12 [facility] Last Admin: 07/11/18 08:10 Dose: 1 mg Docusate Sodium (Colace) 100 mg PO BID [facility] Last Admin: 07/11/18 16:29 Dose: 100 mg Enoxaparin Sodium (Lovenox) 40 mg [place] DAILY [facility]; Protocol Last Admin: 07/11/18 08:11 Dose: 40 mg Haloperidol (Haldol) 5 mg PO Q12 [facility] Last Admin: 07/11/18 08:10 Dose: 5 mg Hydrocortisone (Anusol-Hc) 1 applic [place] BID [facility] Last Admin: 07/11/18 16:26 Dose: Not Given Magnesium Hydroxide (Milk Of Magnesia) 30 ml PO DAILY PRN PRN Reason: Constipation - Labs Labs: 07/10/18 06:32 07/10/18 06:32 - Respiratory Exam Respiratory Exam: NORMAL BREATHING PATTERN - Cardiovascular Exam Cardiovascular Exam: REGULAR RHYTHM - GI/Abdominal Exam GI & Abdominal Exam: Normal Bowel Sounds Assessment and Plan - Assessment and Plan (Free Text) Assessment: Fx R foot S/P ORIF POD #21 PT OOB Incentive spirometry Lovenox 40 mg Pain management Schizophrenia Cont Haldol and cogentin Smoker
[2018-07-12] MEDS: Enoxaparin 40 mg Syringe SC SCH (08:44)
[2018-07-12] MEDS: Hydrocortisone 2.5% (Rectal) CREAM PR SCH ×2 (08:44→17:37)
--- NOTE | 2018-07-12 10:51 | CP.PCM.PN ---
Subjective - Date & Time of Evaluation Date of Evaluation: 07/12/18 Time of Evaluation: 10:00 - Subjective Subjective: NO COMPLAINTS DOING WELL IN REHAB Objective - Vital Signs/Intake and Output Vital Signs (last 24 hours): Temp Pulse Resp BP Pulse Ox 98.4 F 68 20 103/70 95 07/12/18 08:16 07/12/18 08:16 07/12/18 08:16 07/12/18 08:16 07/12/18 08:16 - Medications Medications: Current Medications Acetaminophen (Tylenol 325mg Tab) 650 mg PO Q6 PRN PRN Reason: Pain, Mild (1-3) Benztropine Mesylate (Cogentin) 1 mg PO Q12 [facility] Last Admin: 07/12/18 08:45 Dose: 1 mg Docusate Sodium (Colace) 100 mg PO BID [facility] Last Admin: 07/12/18 08:45 Dose: 100 mg Enoxaparin Sodium (Lovenox) 40 mg [place] DAILY [facility]; Protocol Last Admin: 07/12/18 08:44 Dose: 40 mg Haloperidol (Haldol) 5 mg PO Q12 [facility] Last Admin: 07/12/18 08:45 Dose: 5 mg Hydrocortisone (Anusol-Hc) 1 applic [place] BID [facility] Last Admin: 07/12/18 08:44 Dose: 1 applic Magnesium Hydroxide (Milk Of Magnesia) 30 ml PO DAILY PRN PRN Reason: Constipation - Labs Labs: 07/10/18 06:32 07/10/18 06:32 - Respiratory Exam Respiratory Exam: Clear to Ausculation Bilateral - Cardiovascular Exam Cardiovascular Exam: REGULAR RHYTHM, +S1, +S2 Assessment and Plan - Assessment and Plan (Free Text) Assessment: RIGHT FOOT SURGERY FOR FRACTURES SCHIZOPHRENIA Plan: CONTINUE [facility] FOR DISCHARGE TO HOME LATER IN THE WEEK
--- NOTE | 2018-07-12 18:53 | CP.PCM.PN ---
Subjective - Date & Time of Evaluation Date of Evaluation: 07/12/18 Time of Evaluation: 22:22 - Subjective Subjective: Doing well Objective - Vital Signs/Intake and Output Vital Signs (last 24 hours): Temp Pulse Resp BP Pulse Ox 97.7 F 74 20 107/70 98 07/12/18 15:52 07/12/18 15:52 07/12/18 15:52 07/12/18 15:52 07/12/18 15:52 - Medications Medications: Current Medications Acetaminophen (Tylenol 325mg Tab) 650 mg PO Q6 PRN PRN Reason: Pain, Mild (1-3) Benztropine Mesylate (Cogentin) 1 mg PO Q12 [facility] Last Admin: 07/12/18 08:45 Dose: 1 mg Docusate Sodium (Colace) 100 mg PO BID [facility] Last Admin: 07/12/18 17:37 Dose: 100 mg Enoxaparin Sodium (Lovenox) 40 mg SC DAILY [facility]; Protocol Last Admin: 07/12/18 08:44 Dose: 40 mg Haloperidol (Haldol) 5 mg PO Q12 [facility] Last Admin: 07/12/18 08:45 Dose: 5 mg Hydrocortisone (Anusol-Hc) 1 applic [place] BID [facility] Last Admin: 07/12/18 17:37 Dose: Not Given Magnesium Hydroxide (Milk Of Magnesia) 30 ml PO DAILY PRN PRN Reason: Constipation - Labs Labs: 07/10/18 06:32 07/10/18 06:32 - Respiratory Exam Respiratory Exam: NORMAL BREATHING PATTERN - Cardiovascular Exam Cardiovascular Exam: REGULAR RHYTHM - GI/Abdominal Exam GI & Abdominal Exam: Normal Bowel Sounds Assessment and Plan - Assessment and Plan (Free Text) Assessment: Fx R foot S/P ORIF POD #22 PT OOB Incentive spirometry Lovenox 40 mg Pain management Schizophrenia Cont Haldol and cogentin Smoker
[2018-07-13] MEDS: Hydrocortisone 2.5% (Rectal) CREAM PR SCH ×2 (08:47→16:35)
[2018-07-13] MEDS: Enoxaparin 40 mg Syringe SC SCH (08:49)
--- NOTE | 2018-07-13 20:22 | CP.PCM.PN ---
Subjective - Date & Time of Evaluation Date of Evaluation: 07/13/18 Time of Evaluation: 22:22 - Subjective Subjective: No complaimts Objective - Vital Signs/Intake and Output Vital Signs (last 24 hours): Temp Pulse Resp BP Pulse Ox 97.8 F 73 20 105/73 98 07/13/18 17:43 07/13/18 17:43 07/13/18 17:43 07/13/18 17:43 07/13/18 17:43 - Medications Medications: Current Medications Acetaminophen (Tylenol 325mg Tab) 650 mg PO Q6 PRN PRN Reason: Pain, Mild (1-3) Benztropine Mesylate (Cogentin) 1 mg PO Q12 [facility] Last Admin: 07/13/18 08:48 Dose: 1 mg Docusate Sodium (Colace) 100 mg PO BID [facility] Last Admin: 07/13/18 16:35 Dose: 100 mg Enoxaparin Sodium (Lovenox) 40 mg SC DAILY [facility]; Protocol Last Admin: 07/13/18 08:49 Dose: 40 mg Haloperidol (Haldol) 5 mg PO Q12 [facility] Last Admin: 07/13/18 08:48 Dose: 5 mg Hydrocortisone (Anusol-Hc) 1 applic [place] BID [facility] Last Admin: 07/13/18 16:35 Dose: Not Given Magnesium Hydroxide (Milk Of Magnesia) 30 ml PO DAILY PRN PRN Reason: Constipation - Labs Labs: 07/10/18 06:32 07/10/18 06:32 - Respiratory Exam Respiratory Exam: NORMAL BREATHING PATTERN - Cardiovascular Exam Cardiovascular Exam: REGULAR RHYTHM - GI/Abdominal Exam GI & Abdominal Exam: Normal Bowel Sounds Assessment and Plan - Assessment and Plan (Free Text) Assessment: Fx R foot S/P ORIF POD #23 PT OOB Incentive spirometry Lovenox 40 mg Pain management Schizophrenia Cont Haldol and cogentin Smoker
[2018-07-14 07:56] VITALS: BP 100/62; PULSE 84; TEMP 98.5; O2SAT 98
[2018-07-14] MEDS: Enoxaparin 40 mg Syringe SC SCH (08:00)
[2018-07-14] MEDS: Hydrocortisone 2.5% (Rectal) CREAM PR SCH (08:01)
--- NOTE | 2018-07-14 10:15 | CP.PCM.PN ---
Subjective - Date & Time of Evaluation Date of Evaluation: 07/14/18 Time of Evaluation: 09:00 - Subjective Subjective: NO CHEST PAIN OR SOB PATIENT STATES HE BENEFITTED FROM REHAB AND FEELS HE CAN MANAGE AT HOME Objective - Vital Signs/Intake and Output Vital Signs (last 24 hours): Temp Pulse Resp BP Pulse Ox 98.5 F 84 20 100/62 98 07/14/18 07:55 07/14/18 07:55 07/14/18 07:55 07/14/18 07:55 07/14/18 07:55 - Medications Medications: Current Medications Acetaminophen (Tylenol 325mg Tab) 650 mg PO Q6 PRN PRN Reason: Pain, Mild (1-3) Benztropine Mesylate (Cogentin) 1 mg PO Q12 [facility] Last Admin: 07/14/18 08:01 Dose: 1 mg Docusate Sodium (Colace) 100 mg PO BID [facility] Last Admin: 07/14/18 08:01 Dose: 100 mg Enoxaparin Sodium (Lovenox) 40 mg [place] DAILY [facility]; Protocol Last Admin: 07/14/18 08:00 Dose: 40 mg Haloperidol (Haldol) 5 mg PO Q12 [facility] Last Admin: 07/14/18 08:00 Dose: 5 mg Hydrocortisone (Anusol-Hc) 1 applic [place] BID [facility] Last Admin: 07/14/18 08:01 Dose: Not Given Magnesium Hydroxide (Milk Of Magnesia) 30 ml PO DAILY PRN PRN Reason: Constipation - Labs Labs: 07/10/18 06:32 07/10/18 06:32 - Respiratory Exam Respiratory Exam: Clear to Ausculation Bilateral - Cardiovascular Exam Cardiovascular Exam: REGULAR RHYTHM, +S1, +S2 Assessment and Plan - Assessment and Plan (Free Text) Assessment: RIGHT FOOT FRACTURE SURGERY SCHIZOPHRENIA Plan: FOR DISCHARGE TO HOME TODAY
--- NOTE | 2018-07-14 17:51 | CP.PCM.PN ---
Subjective - Date & Time of Evaluation Date of Evaluation: 07/14/18 Time of Evaluation: 22:22 - Subjective Subjective: Doing well Objective - Vital Signs/Intake and Output Vital Signs (last 24 hours): Temp Pulse Resp BP Pulse Ox 98.5 F 84 20 100/62 98 07/14/18 07:55 07/14/18 07:55 07/14/18 07:55 07/14/18 07:55 07/14/18 07:55 - Labs Labs: 07/10/18 06:32 07/10/18 06:32 - Respiratory Exam Respiratory Exam: NORMAL BREATHING PATTERN - Cardiovascular Exam Cardiovascular Exam: REGULAR RHYTHM - GI/Abdominal Exam GI & Abdominal Exam: Normal Bowel Sounds Assessment and Plan - Assessment and Plan (Free Text) Assessment: Fx R foot S/P ORIF POD #24 PT OOB Incentive spirometry Lovenox 40 mg Pain management Schizophrenia Cont Haldol and cogentin Smoker
== END 2018-07-14 16:00 | disposition home health service (06) | DRG 561 ==
LOC: H.TCU 13:50
PROVIDERS: ADMIT Family Medicine Geriatric Medicine; ATTEND Family Medicine Geriatric Medicine
PROC: F08Z4FZ Home Management Treatment using Assistive, Adaptive, Supportive or Protective Equipment (ICD-10-PCS; principal; 2018-07-03)
PROC: F07M6FZ Therapeutic Exercise Treatment of Musculoskeletal System - Whole Body using Assistive, Adaptive, Supportive or Protective Equipment (ICD-10-PCS; 2018-07-03)
PROC: F07Z9FZ Gait Training/Functional Ambulation Treatment using Assistive, Adaptive, Supportive or Protective Equipment (ICD-10-PCS; 2018-07-03)
DX: S92.301D Fracture of unspecified metatarsal bone(s), right foot, subsequent encounter for fracture with routine healing (principal); W01.0XXD Fall on same level from slipping, tripping and stumbling without subsequent striking against object, subsequent encounter; F17.200 Nicotine dependence, unspecified, uncomplicated; F20.9 Schizophrenia, unspecified; R00.0 Tachycardia, unspecified

== ENCOUNTER 2018-08-25 07:19 | Day surgery (SDC) | payer MEDICARE ==
[2018-08-25] MEDS ORDERED: Bupivacaine 0.25% Inj(30mL) IJ ONE (07:33)
[2018-08-25] MEDS ORDERED: Clindamycin 600mg/50ml D5W 600 MG/50 ML VIAL IVPB ONE (07:33)
[2018-08-25] MEDS ORDERED: Lidocaine 1% Inj (20ml) IJ ONE (07:33)
--- NOTE | 2018-08-25 07:37 | CP.SDSHP ---
<Maki Valenzuela - Last Filed: 08/25/18 08:39> Same Day Surgery H & P - History Proposed Procedure: Right foot removal of hardware s/p open reduction and internal fixation from 06/22/18 Pre-Op Diagnosis: ORIF comminuted fracture of the 1st, 2nd, 3rd, 4th metatarsal base and cuboid - Previous Medical/Surgical History Pain: 2.Mild Pain - Allergies Allergies: Allergies Penicillins Allergy (Verified 08/25/18 07:33) RASH - Physical Exam Mental Status: Alert & Oriented x3 Neuro: WNL - {Optional Preform as Required} Integument: WNL - Impression Pt. Evaluated Today:Candidate for Anesthesia & Procedure: Yes - Date & Time Date: 08/25/18 Time: 07:39 Short Stay Discharge - Short Stay Discharge Admitting Diagnosis/Reason for Visit: T84.196D Disposition: HOME/ ROUTINE Referrals: FAMILY PROVIDER,NO [Primary Care Provider] - Additional Instructions (Diet, Activity): -Patient in good/stable condition for discharge home -Patient to resume medications per medical reconciliation -Resume regular diet -Please keep dressing clean, dry, & intact to surgical site -Use plastic bag over bandage for showering -Wear post op shoe at all times when ambulating -Call clinic if you see signs of infection (redness, swelling, malodor) -Please make an appointment to see Dr. Salvador in office/clinic within 1 week for post-op check <Francesco Agustin - Last Filed: 08/25/18 15:01> Same Day Surgery H & P - Allergies Allergies: Allergies Penicillins Allergy (Verified 08/25/18 07:33) RASH - Physical Exam Vital Signs: Vital Signs 08/25/18 08/25/18 08/25/18 07:45 07:50 11:30 Temperature 97.8 F 97.8 F Pulse Rate 94 H 94 H 83 Respiratory 18 18 Rate Blood Pressure 115/77 124/91 H O2 Sat by Pulse 96 100 Oximetry 08/25/18 08/25/18 08/25/18 11:45 12:00 12:15 Temperature 98.1 F Pulse Rate 79 82 82 Respiratory 16 17 16 Rate Blood Pressure 126/80 108/67 104/72 O2 Sat by Pulse 100 100 100 Oximetry 08/25/18 08/25/18 08/25/18 12:30 12:45 13:00 Temperature 98.4 F 98.4 F Pulse Rate 85 78 72 Respiratory 18 18 18 Rate Blood Pressure 101/75 111/82 126/86 O2 Sat by Pulse 97 95 95 Oximetry 08/25/18 08/25/18 08/25/18 13:10 13:17 14:03 Temperature 97.5 F L 97.3 F L Pulse Rate 76 73 Respiratory 18 18 Rate Blood Pressure 131/80 107/81 O2 Sat by Pulse 96 96 97 Oximetry Short Stay Discharge - Short Stay Discharge Progress Note/Discharge Note with Instructions: - Patient evaluated bedside in recovery s/p Right foot removal of hardware surgery. - After surgical procedure patient in NAD - (+) Void, (+) Appetite - Capillary refill time <3s and NVS intact. - Patient denies complaints at this time. - Post operative instructions and plan of care explained to patient at length. - Patient. acknowledges verbal understanding. - Patient stable for D/C per podiatric surgery.
--- NOTE | 2018-08-25 07:37 | CP.PCM.PN ---
Subjective - Date & Time of Evaluation Date of Evaluation: 08/25/18 Time of Evaluation: 07:37 - Subjective Subjective: Podiatry progress note for Dr. Salvador, 57 y/o male with PMHx of schizophrenia seen and evaluated in [facility]. Patient sustained a trip and fall in May 2018 and had an open reduction internal fixation procedure for the right foot on 06/22/18. At this time, patient returns to remove hardware from the surgical sites. Patient states he has regularly been following up with Dr. Salvador in his office. Patient admits to walking in his [employer]. Denies N/V/F/C/SOB/CP and has no other acute complaints at this time. Patient states he last ate at 8:00 PM last night. PMHx: schizophrenia controlled with cogentin PSHx: 35 years ago angioplasty SH: 1 ppd smoker, denies alcohol use All: penicillin Objective - Constitutional Appears: Well, Non-toxic, No Acute Distress - Head Exam Head Exam: ATRAUMATIC, NORMOCEPHALIC - Eye Exam Eye Exam: Normal appearance - Extremities Exam Additional comments: Dressing clean dry and intact CFT less than 3 seconds X 5 minimal edema noted to the right foot patient denies pain - Neurological Exam Neurological Exam: Alert, Awake, Oriented x3 - Psychiatric Exam Psychiatric exam: Normal Affect, Normal Mood Assessment and Plan - Assessment and Plan (Free Text) Assessment: 57 y/o male patient seen and evaluated in [facility] for right foot removal of hardware, surgery on 06/22/18 Plan: Pt was seen and examined in [facility] Pt NPO status was confirmed All pre-op testing and clearance in chart Pt has exhausted all conservative treatment at this time and is opting for surgical intervention Pt was explained procedure and post-operative course All pt's questions were answered to satisfaction No guarantees were made Pt understands all risks, benefits and complications of procedure Pt will follow-up with Dr. Salvador within 1 week of surgery
[2018-08-25] MEDS ORDERED: Sodium Chloride 0.9% 1,000 ML IV SCH (07:45)
[2018-08-25 07:47] VITALS: RESP 18
[2018-08-25 07:57] VITALS: BMI 34.5
[2018-08-25] MEDS ORDERED: Lactated Ringer's 1,000 ML IV ONE ×3 (08:06→13:10)
[2018-08-25] MEDS ORDERED: Midazolam 2 MG/2 ML VIAL ONE (09:27)
[2018-08-25] MEDS ORDERED: Lidocaine 1% 5ml Abboject ONE (09:27)
[2018-08-25] MEDS ORDERED: Propofol 10 mg/ml Inj (20 ML) ONE ×2 (09:27→10:16)
[2018-08-25] MEDS ORDERED: Lidocaine 2% Jelly (5 ml) TOP ONE (09:32)
[2018-08-25] MEDS ORDERED: Bupivacaine 0.5% Inj(30mL) IJ ONE ×2 (10:20→11:10)
[2018-08-25] MEDS ORDERED: Lidocaine 1% PF (5ml) Amp INJ ONE (10:20)
[2018-08-25] MEDS ORDERED: Phenylephrine 10 mg/ml Inj ONE (10:28)
[2018-08-25] MEDS ORDERED: HYDROmorphone 0.5 mg/0.5 ml ISec IVP PRN (11:32)
--- NOTE | 2018-08-25 11:44 | PCM.SURG1 ---
Surgeon's Initial Post Op Note - Surgeon's Notes Surgeon: Dr. Salvador. DPM [employer] Attendant: Dr. Maki Valenzuela. DPM/PGY1 Type of Anesthesia: IV Sedation, Local Anesthesia Administered By: Dr. Carey Pre-Operative Diagnosis: Right foot internal hardware Operative Findings: See dictation. Injectables: 20 cc of 1:1 mixture of marcaine 0.5% plaina and lidocaine 1% plain. 10 CC of marcaine plain 0.5% for postoperative pain control. Materials: 4-0 Nylon, 4-0 Vicryl Post-Operative Diagnosis: Right foot internal hardware Operation Performed: Removal of two trasal screws. Removal of one tarsometatarsal screw. Specimen/Specimens Removed: None Estimated Blood Loss: EBL {In ML}: 5 Blood Products Given: N/A Drains Used: No Drains Post-Op Condition: Good Date of Surgery/Procedure: 08/25/18 Time of Surgery/Procedure: 11:45
[2018-08-25 15:06] VITALS: BP 131/81; PULSE 83; TEMP 98.1; O2SAT 98
--- NOTE | 2018-08-25 23:47 | OP ---
PROCEDURE DATE: 08/25/2018 SURGEON: Dav Salvador DPM STUDIO ASSISTANT: Dr. Valenzuela PREOPERATIVE DIAGNOSIS: Internal hardware in the right foot, status post Lisfranc fracture dislocation repair x9 weeks. POSTOPERATIVE DIAGNOSIS: Internal hardware in the right foot, status post Lisfranc fracture dislocation repair x9 weeks. PROCEDURES PERFORMED: 1. Removal of proximal tarsal screw of right foot. 2. Removal of distal tarsal screw, right foot. 3. Removal of first metatarsal cuneiform joint tarsal screw. ANESTHESIA: LMA and local anesthesia. HEMOSTASIS: Well-padded right ankle tourniquet. SPECIMENS: Three metallic screws. FINDINGS AND INDICATIONS: The patient is approximately 9 weeks status post repair of right foot Lisfranc fracture dislocation which was performed at [facility] on 06/22/2018. He returned to the OR today with the intended second step of the repair for the tarsal region of the right foot with plan removal for two tarsal screws and one first metatarsal tarsal screw before the patient can be considered for full protected weightbearing of right lower extremity. DESCRIPTION OF PROCEDURE: The patient was brought to the operating room, placed on the operating table in normal supine position. At which time, anesthesia was induced followed by infiltration of local anesthesia of the right foot utilizing 20 mL of 50:50 mixture 0.5% Marcaine plain and 1% lidocaine plain. The patient's right lower extremity was prepped and draped in the usual sterile fashion. An Esmarch bandage was used to exsanguinate the right foot, and the well-padded right ankle tourniquet was inflated to 250 mmHg. PROCEDURE #1: REMOVAL OF PROXIMAL TARSAL SCREW OF RIGHT FOOT: Attention was directed to the medial aspect of the navicular region of the right foot where an incision was created and exploration towards the proximal screw was accomplished and dissected free from surrounding tissues. Utilizing a [employer] screwdriver, the proximal tarsal screw was removed from the tarsus intact. The wound was then flushed with copious amounts of sterile saline solution and then closed with 4-0 Vicryl suture and 4-0 nylon suture. PROCEDURE #2: REMOVAL OF DISTAL TARSAL SCREW OF RIGHT FOOT: With same procedure performed on procedure #1, we then performed procedure #2 with no additions or deletions. PROCEDURE #3: REMOVAL OF FIRST METATARSAL CUNEIFORM JOINT TARSAL SCREW: At this time, an incision was made overlying the dorsal aspect of the proximal first metatarsal. The incision was deepened by sharp and blunt dissection. Identification of the extensor hallucis longus tendon was accomplished and was retracted. Identification of the screw head was made and was dissected free from soft tissues. Utilizing a [employer] screwdriver, the first metatarsal cuneiform joint tarsal screw was removed in total. The wound was then flushed with copious amounts of sterile saline solution, and the superficial fascia was approximated and closed utilizing a 4-0 Vicryl suture. The skin was then approximated and closed utilizing a 4-0 nylon suture. The postop Marcaine block was then performed at all wound sites utilizing approximately 10 mL of 0.5% Marcaine plain. The wounds were then dressed with Betadine-soaked Adaptic, dry sterile Jemal gauze and tensoplast tape for compression. The right ankle tourniquet was deflated and capillary refill time was noted to be instantaneous in all digits of the right foot. The patient tolerated the procedure and anesthesia well, was transferred to the PACU area with vital signs stable and neurovascular status intact. Dav Salvador DPM CAMPOS
--- NOTE | 2018-08-26 09:16 | RAD ---
Date of service: 08/25/2018 PROCEDURE: Right Foot Radiographs. HISTORY: S/P Right foot removal of hardware. COMPARISON: None. FINDINGS: BONES: Postoperative changes of the 2nd metatarsal and middle cuneiform. Fixation screw through the lateral cuneiform. JOINTS: Severe degenerative changes of the midfoot region. SOFT TISSUES: Normal. OTHER FINDINGS: None. IMPRESSION: Postoperative changes of the 2nd metatarsal and middle cuneiform. Fixation screw through the lateral cuneiform.Severe degenerative changes of the midfoot region.
== END 2018-08-25 16:21 | disposition home or self-care (01) ==
LOC: H.OPSURG 07:19
DX: S92.231 Displaced fracture of intermediate cuneiform of right foot (principal); W01.0XXS Fall on same level from slipping, tripping and stumbling without subsequent striking against object, sequela; Z88.0 Allergy status to penicillin; F20.9 Schizophrenia, unspecified; F17.210 Nicotine dependence, cigarettes, uncomplicated; Z79.899 Other long term (current) drug therapy
CPT/HCPCS: 20680; 73630; 88304; 97116; 97161; G8978; G8979; J2250; J2370; J2704; J2765; J3010; J7030; J7120